=== PATIENT | male | born 1960 | race Caucasian/White ===

== ENCOUNTER 2022-01-30 13:56 | Oncology outpatient (recurring) (ONCR) | payer BC, SELFPAY ==
[2022-01-30 16:35] LABS: Basophils % 0.4 %; Eosinophils # 0.1 10^3/uL (0.0-0.8); Eosinophils % 1.9 %; Hematocrit 43.7 % (42.0-52.0); Hemoglobin 14.8 g/dL (11.7-16.6); Lymphocytes # 1.7 10^3/uL (0.8-4.8); Lymphocytes % 24.6 %; Mean Corpuscular HGB Conc 33.9 g/dL (30.0-36.0); Mean Corpuscular Hemoglobin 30.3 pg (28.0-34.0); Mean Corpuscular Volume 89.4 fl (80-94); Mean Platelet Volume 10.2 fL (7.4-10.4); Monocytes # 0.8 10^3/uL (0.2-0.9); Monocytes % 12.1 %; Neutrophils # 4.21 10^3/uL (1.8-7.7); Neutrophils % 60.7 %; Nucleated Red Blood Cells % 0 %; Platelet Count 424 10^3/cmm (130-400); Red Blood Count 4.89 10^6/uL (4.1-5.3); Red Cell Distribution Width 12.6 % (12.1-15.1); White Blood Count 6.9 10^3/uL (4.0-10.0)
[2022-01-30 17:09] LABS: Carcinoembryonic Antigen 108.5 ng/mL (0.0-4.7)
[2022-01-30 17:20] LABS: Alanine Aminotransferase 14 U/L (0-41); Albumin Level 4.3 g/dL (3.5-5.2); Alkaline Phosphatase 50 IU/L (40-130); Aspartate Amino Transferase 15 U/L (0-40); Blood Urea Nitrogen 11 mg/dL (8-23); Calcium 8.6 mg/dL (8.5-10.5); Carbon Dioxide 26 mmol/L (22-29); Chloride 100 mmol/L (98-107); Globulin 2.5 g/dL (1.3-4.6); Glomerular Filtration Rate 113.9 mL/min (90-130); Glucose 102 mg/dL (65-115); Osmolality Calculated 286 mOsm/kg (285-295); Sodium 138 mmol/L (136-145); Total Bilirubin 0.5 mg/dL (0.15-1.2); Total Protein 6.8 g/dL (6.6-8.7)
== END 2022-02-13 23:59 | disposition home or self-care (01) ==
PROVIDERS: Visit Provider Internal Medicine Medical Oncology
DX: C18.7 Malignant neoplasm of sigmoid colon (principal); C78.6 Secondary malignant neoplasm of retroperitoneum and peritoneum; K62.5 Hemorrhage of anus and rectum; Z79.899 Other long term (current) drug therapy
CPT/HCPCS: 36591; 80053; 82378; 85025; 99204

== ENCOUNTER 2022-03-13 08:00 | Oncology outpatient (recurring) (ONCR) | payer BC, SELFPAY ==
[2022-02-27 09:21] LABS: Basophils # 0.1 10^3/uL (0.0-0.1); Basophils % 0.8 %; Eosinophils # 0.1 10^3/uL (0.0-0.8); Eosinophils % 1.6 %; Hematocrit 43.2 % (42.0-52.0); Hemoglobin 14.9 g/dL (11.7-16.6); Lymphocytes # 1.5 10^3/uL (0.8-4.8); Lymphocytes % 20.4 %; Mean Corpuscular HGB Conc 34.5 g/dL (30.0-36.0); Mean Corpuscular Hemoglobin 29.9 pg (28.0-34.0); Mean Corpuscular Volume 86.7 fl (80-94); Monocytes # 0.8 10^3/uL (0.2-0.9); Monocytes % 11.3 %; Neutrophils # 4.86 10^3/uL (1.8-7.7); Neutrophils % 65.5 %; Nucleated Red Blood Cells % 0 %; Platelet Count 421 10^3/cmm (130-400); Red Blood Count 4.98 10^6/uL (4.1-5.3); Red Cell Distribution Width 12.3 % (12.1-15.1); White Blood Count 7.4 10^3/uL (4.0-10.0)
[2022-02-27 09:41] LABS: Alanine Aminotransferase 10 U/L (0-41); Albumin Level 4.2 g/dL (3.5-5.2); Alkaline Phosphatase 56 IU/L (40-130); Anion Gap 12.3 (5-19); Aspartate Amino Transferase 12 U/L (0-40); Blood Urea Nitrogen 15 mg/dL (8-23); Calcium 9.3 mg/dL (8.5-10.5); Carbon Dioxide 28 mmol/L (22-29); Chloride 102 mmol/L (98-107); Globulin 2.8 g/dL (1.3-4.6); Glomerular Filtration Rate 113.9 mL/min (90-130); Glucose 114 mg/dL (65-115); Osmolality Calculated 288 mOsm/kg (285-295); Potassium 4.3 mmol/L (3.5-5.1); Sodium 138 mmol/L (136-145); Total Bilirubin 0.3 mg/dL (0.15-1.2)
[2022-02-27] MEDS: acetaminophen 325 mg Tablet 650 MG PO ×2 (12:08→12:16)
[2022-02-27] MEDS: palonosetron 0.25 mg/5 mL SDV IVP (12:09)
[2022-02-27] MEDS: sodium chloride 0.9% 250 ML 75 ML IV (12:10)
[2022-02-27] MEDS: diphenhydrAMINE 50 mg/mL SDV 1mL IVP (12:27)
[2022-02-27] MEDS: famotidine 20 mg/2 mL INJ IVP (12:30)
[2022-02-27] MEDS: atropine 1 mg/mL SDV 1 mL 0.4 MG IV (14:25)
[2022-02-27] MEDS: dextrose 5% 250 ML 75 ML IV (14:35)
[2022-02-27 16:30] VITALS: BP 150/93; PULSE 66; RESP 16; TEMP 36.6; O2SAT 96
[2022-03-06 13:00] LABS: Basophils % 0.5 %; Eosinophils # 0.3 10^3/uL (0.0-0.8); Eosinophils % 3.4 %; Hematocrit 43.3 % (42.0-52.0); Hemoglobin 15.1 g/dL (11.7-16.6); Lymphocytes # 1.7 10^3/uL (0.8-4.8); Mean Corpuscular HGB Conc 34.9 g/dL (30.0-36.0); Mean Corpuscular Volume 85.9 fl (80-94); Mean Platelet Volume 9.7 fL (7.4-10.4); Monocytes # 0.9 10^3/uL (0.2-0.9); Monocytes % 10.1 %; Neutrophils # 5.62 10^3/uL (1.8-7.7); Neutrophils % 65.6 %; Nucleated Red Blood Cells % 0 %; Platelet Count 499 10^3/cmm (130-400); Red Blood Count 5.04 10^6/uL (4.1-5.3); Red Cell Distribution Width 12.2 % (12.1-15.1); White Blood Count 8.6 10^3/uL (4.0-10.0)
[2022-03-06 13:16] LABS: Alanine Aminotransferase 17 U/L (0-41); Albumin Level 4.2 g/dL (3.5-5.2); Alkaline Phosphatase 59 IU/L (40-130); Aspartate Amino Transferase 15 U/L (0-40); Blood Urea Nitrogen 12 mg/dL (8-23); Calcium 8.8 mg/dL (8.5-10.5); Carbon Dioxide 28 mmol/L (22-29); Chloride 99 mmol/L (98-107); Globulin 3.1 g/dL (1.3-4.6); Glomerular Filtration Rate 113.9 mL/min (90-130); Glucose 96 mg/dL (65-115); Osmolality Calculated 280 mOsm/kg (285-295); Sodium 135 mmol/L (136-145); Total Bilirubin 0.2 mg/dL (0.15-1.2); Total Protein 7.3 g/dL (6.6-8.7)
[2022-03-13 08:34] LABS: Basophils # 0.1 10^3/uL (0.0-0.1); Basophils % 0.6 %; Eosinophils # 0.2 10^3/uL (0.0-0.8); Eosinophils % 1.8 %; Hematocrit 45.6 % (42.0-52.0); Hemoglobin 15.9 g/dL (11.7-16.6); Lymphocytes # 1.4 10^3/uL (0.8-4.8); Lymphocytes % 12.7 %; Mean Corpuscular HGB Conc 34.9 g/dL (30.0-36.0); Mean Corpuscular Hemoglobin 29.9 pg (28.0-34.0); Mean Corpuscular Volume 85.7 fl (80-94); Mean Platelet Volume 9.7 fL (7.4-10.4); Monocytes # 0.9 10^3/uL (0.2-0.9); Monocytes % 8.1 %; Neutrophils # 8.53 10^3/uL (1.8-7.7); Neutrophils % 76.4 %; Nucleated Red Blood Cells % 0 %; Platelet Count 475 10^3/cmm (130-400); Red Blood Count 5.32 10^6/uL (4.1-5.3); Red Cell Distribution Width 12.8 % (12.1-15.1); White Blood Count 11.2 10^3/uL (4.0-10.0)
[2022-03-13 08:58] LABS: Alanine Aminotransferase 16 U/L (0-41); Albumin Level 4.4 g/dL (3.5-5.2); Alkaline Phosphatase 57 IU/L (40-130); Anion Gap 13.2 (5-19); Aspartate Amino Transferase 12 U/L (0-40); Blood Urea Nitrogen 13 mg/dL (8-23); Calcium 9.5 mg/dL (8.5-10.5); Carbon Dioxide 28 mmol/L (22-29); Chloride 100 mmol/L (98-107); Globulin 2.7 g/dL (1.3-4.6); Glomerular Filtration Rate 136.1 mL/min (90-130); Glucose 109 mg/dL (65-115); Osmolality Calculated 285 mOsm/kg (285-295); Potassium 4.2 mmol/L (3.5-5.1); Sodium 137 mmol/L (136-145); Total Bilirubin 0.4 mg/dL (0.15-1.2); Total Protein 7.1 g/dL (6.6-8.7)
[2022-03-13] MEDS: acetaminophen 325 mg Tablet 650 MG PO (09:46)
[2022-03-13] MEDS: sodium chloride 0.9% 250 ML 75 ML IV (09:46)
[2022-03-13] MEDS: diphenhydrAMINE 50 mg/mL SDV 1mL IVP (09:47)
[2022-03-13] MEDS: atropine 1 mg/mL SDV 1 mL 0.4 MG IV (09:48)
[2022-03-13] MEDS: famotidine 20 mg/2 mL INJ IVP (09:48)
[2022-03-13] MEDS: palonosetron 0.25 mg/5 mL SDV IVP (09:57)
[2022-03-13] MEDS: dextrose 5% 250 ML 75 ML IV (10:21)
== END 2022-03-15 23:59 | disposition home or self-care (01) ==
PROVIDERS: Nurse Practitioner Family; Visit Provider Internal Medicine Medical Oncology
DX: Z51.11 Encounter for antineoplastic chemotherapy (principal); C18.7 Malignant neoplasm of sigmoid colon; C78.6 Secondary malignant neoplasm of retroperitoneum and peritoneum; L27.1 Localized skin eruption due to drugs and medicaments taken internally; T45.1X5A Adverse effect of antineoplastic and immunosuppressive drugs, initial encounter; Z79.52 Long term (current) use of systemic steroids; Z79.899 Other long term (current) drug therapy; Z87.891 Personal history of nicotine dependence
CPT/HCPCS: 36591; 80053; 85025; 96367; 96375; 96413; 96415; 96417; J0461; J1100; J1200; J2469; J3490; J7050; J9206; J9303

== ENCOUNTER 2022-04-04 11:00 | Oncology outpatient (recurring) (ONCR) | payer BC, SELFPAY ==
[2022-03-27 08:42] LABS: Basophils % 0.4 %; Eosinophils # 0.3 10^3/uL (0.0-0.8); Eosinophils % 3.6 %; Hematocrit 43.7 % (42.0-52.0); Hemoglobin 14.9 g/dL (11.7-16.6); Lymphocytes # 1.7 10^3/uL (0.8-4.8); Lymphocytes % 21.7 %; Mean Corpuscular HGB Conc 34.1 g/dL (30.0-36.0); Mean Corpuscular Volume 88.1 fl (80-94); Mean Platelet Volume 9.6 fL (7.4-10.4); Monocytes # 0.8 10^3/uL (0.2-0.9); Monocytes % 10.5 %; Neutrophils # 4.91 10^3/uL (1.8-7.7); Neutrophils % 63.5 %; Nucleated Red Blood Cells % 0 %; Platelet Count 375 10^3/cmm (130-400); Red Blood Count 4.96 10^6/uL (4.1-5.3); Red Cell Distribution Width 13.5 % (12.1-15.1); White Blood Count 7.7 10^3/uL (4.0-10.0)
[2022-03-27 08:57] LABS: Alanine Aminotransferase 18 U/L (0-41); Alkaline Phosphatase 46 IU/L (40-130); Anion Gap 11.7 (5-19); Aspartate Amino Transferase 15 U/L (0-40); Blood Urea Nitrogen 15 mg/dL (8-23); Calcium 9.3 mg/dL (8.5-10.5); Carbon Dioxide 29 mmol/L (22-29); Chloride 101 mmol/L (98-107); Globulin 2.6 g/dL (1.3-4.6); Glomerular Filtration Rate 97.6 mL/min (90-130); Glucose 106 mg/dL (65-115); Osmolality Calculated 285 mOsm/kg (285-295); Potassium 4.7 mmol/L (3.5-5.1); Sodium 137 mmol/L (136-145); Total Bilirubin 0.5 mg/dL (0.15-1.2); Total Protein 6.6 g/dL (6.6-8.7)
[2022-03-28 08:40] LABS: Add On to Lab Order(s) Added
[2022-03-28 09:14] LABS: Carcinoembryonic Antigen 65.5 ng/mL (0.0-4.7)
[2022-04-03 08:43] LABS: Basophils % 0.7 %; Eosinophils # 0.2 10^3/uL (0.0-0.8); Eosinophils % 3.1 %; Hematocrit 44.7 % (42.0-52.0); Hemoglobin 15.1 g/dL (11.7-16.6); Lymphocytes # 1.4 10^3/uL (0.8-4.8); Lymphocytes % 23.2 %; Mean Corpuscular HGB Conc 33.8 g/dL (30.0-36.0); Mean Corpuscular Hemoglobin 30.3 pg (28.0-34.0); Mean Corpuscular Volume 89.8 fl (80-94); Monocytes # 0.7 10^3/uL (0.2-0.9); Monocytes % 11.9 %; Neutrophils # 3.53 10^3/uL (1.8-7.7); Neutrophils % 60.8 %; Nucleated Red Blood Cells % 0 %; Platelet Count 409 10^3/cmm (130-400); Red Blood Count 4.98 10^6/uL (4.1-5.3); Red Cell Distribution Width 13.6 % (12.1-15.1); White Blood Count 5.8 10^3/uL (4.0-10.0)
[2022-04-03 09:12] LABS: Alanine Aminotransferase 15 U/L (0-41); Albumin Level 3.9 g/dL (3.5-5.2); Alkaline Phosphatase 50 IU/L (40-130); Anion Gap 12.1 (5-19); Aspartate Amino Transferase 15 U/L (0-40); Blood Urea Nitrogen 12 mg/dL (8-23); Calcium 8.8 mg/dL (8.5-10.5); Carbon Dioxide 29 mmol/L (22-29); Chloride 100 mmol/L (98-107); Globulin 2.5 g/dL (1.3-4.6); Glomerular Filtration Rate 113.9 mL/min (90-130); Glucose 132 mg/dL (65-115); Osmolality Calculated 286 mOsm/kg (285-295); Potassium 4.1 mmol/L (3.5-5.1); Sodium 137 mmol/L (136-145); Total Bilirubin 0.5 mg/dL (0.15-1.2); Total Protein 6.4 g/dL (6.6-8.7)
[2022-04-04] MEDS: acetaminophen 325 mg Tablet 650 MG PO (08:51)
[2022-04-04] MEDS: sodium chloride 0.9% 250 ML 100 ML IV (08:52)
[2022-04-04] MEDS: diphenhydrAMINE 50 mg/mL SDV 1mL IVP (08:55)
[2022-04-04] MEDS: famotidine 20 mg/2 mL INJ IVP (08:56)
[2022-04-04] MEDS: palonosetron 0.25 mg/5 mL SDV IVP (08:59)
[2022-04-04] MEDS: atropine 1 mg/mL SDV 1 mL 0.4 MG IV (10:42)
[2022-04-04] MEDS: IRINOTECAN IV (11:01)
[2022-04-04] MEDS: DEXTROSE 5% IV (11:01)
[2022-04-04 12:46] VITALS: BP 125/77; PULSE 86; TEMP 36.9; O2SAT 96
== END 2022-04-15 23:59 | disposition home or self-care (01) ==
PROVIDERS: Nurse Practitioner Family; Visit Provider Internal Medicine Medical Oncology
DX: Z51.11 Encounter for antineoplastic chemotherapy (principal); C18.7 Malignant neoplasm of sigmoid colon; C78.6 Secondary malignant neoplasm of retroperitoneum and peritoneum; C79.52 Secondary malignant neoplasm of bone marrow; Z79.899 Other long term (current) drug therapy; Z87.891 Personal history of nicotine dependence
CPT/HCPCS: 36591; 80053; 82378; 85025; 96367; 96375; 96413; 96415; 96417; J0461; J1100; J1200; J2469; J3490; J7050; J9206; J9303

== ENCOUNTER 2022-05-16 08:30 | Oncology outpatient (recurring) (ONCR) | payer BC, SELFPAY ==
[2022-04-18 08:19] LABS: Basophils # 0.1 10^3/uL (0.0-0.1); Eosinophils # 0.4 10^3/uL (0.0-0.8); Eosinophils % 5.9 %; Hematocrit 43.1 % (42.0-52.0); Hemoglobin 14.8 g/dL (11.7-16.6); Lymphocytes # 1.7 10^3/uL (0.8-4.8); Lymphocytes % 25.6 %; Mean Corpuscular HGB Conc 34.3 g/dL (30.0-36.0); Mean Corpuscular Hemoglobin 30.2 pg (28.0-34.0); Mean Platelet Volume 9.6 fL (7.4-10.4); Monocytes # 0.8 10^3/uL (0.2-0.9); Monocytes % 11.2 %; Neutrophils % 56.2 %; Nucleated Red Blood Cells % 0 %; Platelet Count 391 10^3/cmm (130-400); Red Cell Distribution Width 14.4 % (12.1-15.1); White Blood Count 6.8 10^3/uL (4.0-10.0)
[2022-04-18 08:36] LABS: Alanine Aminotransferase 15 U/L (0-41); Alkaline Phosphatase 60 IU/L (40-130); Anion Gap 13.3 (5-19); Aspartate Amino Transferase 17 U/L (0-40); Blood Urea Nitrogen 11 mg/dL (8-23); Carbon Dioxide 29 mmol/L (22-29); Chloride 102 mmol/L (98-107); Globulin 2.5 g/dL (1.3-4.6); Glomerular Filtration Rate 113.9 mL/min (90-130); Glucose 134 mg/dL (65-115); Osmolality Calculated 291 mOsm/kg (285-295); Potassium 4.3 mmol/L (3.5-5.1); Sodium 140 mmol/L (136-145); Total Bilirubin 0.3 mg/dL (0.15-1.2); Total Protein 6.5 g/dL (6.6-8.7)
[2022-04-18] MEDS: palonosetron 0.25 mg/5 mL SDV IVP (10:40)
[2022-04-18] MEDS: sodium chloride 0.9% 250 ML 75 ML IV (10:40)
[2022-04-18] MEDS: famotidine 20 mg/2 mL INJ IVP (10:41)
[2022-04-18] MEDS: atropine 1 mg/mL SDV 1 mL 0.4 MG IV (10:42)
[2022-04-18] MEDS: acetaminophen 325 mg Tablet 650 MG PO (10:45)
[2022-04-18] MEDS: diphenhydrAMINE 50 mg/mL SDV 1mL IVP ×2 (10:45→10:57)
[2022-04-18 13:48] VITALS: BP 131/79; PULSE 64; RESP 16; TEMP 36.4; O2SAT 95
[2022-05-02] MEDS: alteplase 1 mg/mL SDV 2 mL 2 MG INTRACATH (08:55)
[2022-05-02 09:17] LABS: Basophils # 0.1 10^3/uL (0.0-0.1); Basophils % 0.8 %; Eosinophils # 0.4 10^3/uL (0.0-0.8); Eosinophils % 6.3 %; Hematocrit 44.9 % (42.0-52.0); Hemoglobin 15.3 g/dL (11.7-16.6); Lymphocytes # 1.5 10^3/uL (0.8-4.8); Lymphocytes % 24.9 %; Mean Corpuscular HGB Conc 34.1 g/dL (30.0-36.0); Mean Corpuscular Hemoglobin 30.4 pg (28.0-34.0); Mean Corpuscular Volume 89.1 fl (80-94); Mean Platelet Volume 9.7 fL (7.4-10.4); Monocytes # 0.6 10^3/uL (0.2-0.9); Monocytes % 10.3 %; Neutrophils # 3.46 10^3/uL (1.8-7.7); Neutrophils % 57.5 %; Nucleated Red Blood Cells % 0 %; Platelet Count 381 10^3/cmm (130-400); Red Blood Count 5.04 10^6/uL (4.1-5.3)
[2022-05-02 09:49] LABS: Carcinoembryonic Antigen 25.6 ng/mL (0.0-4.7)
[2022-05-02 09:59] LABS: Alanine Aminotransferase 24 U/L (0-41); Alkaline Phosphatase 55 U/L (40-130); Aspartate Amino Transferase 22 U/L (0-40); Blood Urea Nitrogen 10 mg/dL (8-23); Calcium 9.1 mg/dL (8.5-10.5); Carbon Dioxide 25 mmol/L (22-29); Chloride 103 mmol/L (98-107); Globulin 2.9 g/dL (1.3-4.6); Glomerular Filtration Rate 136.1 mL/min (90-130); Glucose 111 mg/dL (65-115); Osmolality Calculated 288 mOsm/kg (285-295); Sodium 139 mmol/L (136-145); Total Bilirubin 0.4 mg/dL (0.15-1.2); Total Protein 6.9 g/dL (6.6-8.7)
[2022-05-02 10:13] LABS: Anion Gap 15.7 (5-19); Potassium 4.7 mmol/L (3.5-5.1)
[2022-05-02] MEDS: acetaminophen 325 mg Tablet 650 MG PO (10:51)
[2022-05-02] MEDS: sodium chloride 0.9% 250 ML 100 ML IV (10:52)
[2022-05-02] MEDS: palonosetron 0.25 mg/5 mL SDV IVP (10:53)
[2022-05-02] MEDS: famotidine 20 mg/2 mL INJ IVP (10:54)
[2022-05-02] MEDS: diphenhydrAMINE 50 mg/mL SDV 1mL IVP (10:57)
[2022-05-02] MEDS: atropine 1 mg/mL SDV 1 mL 0.4 MG IV (12:37)
[2022-05-16 08:49] LABS: Basophils # 0.1 10^3/uL (0.0-0.1); Basophils % 0.9 %; Eosinophils # 0.4 10^3/uL (0.0-0.8); Eosinophils % 6.6 %; Hematocrit 44.8 % (42.0-52.0); Hemoglobin 15.3 g/dL (11.7-16.6); Lymphocytes # 1.7 10^3/uL (0.8-4.8); Lymphocytes % 29.2 %; Mean Corpuscular HGB Conc 34.2 g/dL (30.0-36.0); Mean Corpuscular Hemoglobin 30.9 pg (28.0-34.0); Mean Corpuscular Volume 90.5 fl (80-94); Mean Platelet Volume 9.6 fL (7.4-10.4); Monocytes # 0.6 10^3/uL (0.2-0.9); Monocytes % 10.1 %; Neutrophils # 3.05 10^3/uL (1.8-7.7); Nucleated Red Blood Cells % 0 %; Platelet Count 376 10^3/cmm (130-400); Red Blood Count 4.95 10^6/uL (4.1-5.3); Red Cell Distribution Width 15.1 % (12.1-15.1); White Blood Count 5.8 10^3/uL (4.0-10.0)
[2022-05-16 09:39] LABS: Alanine Aminotransferase 23 U/L (0-41); Alkaline Phosphatase 59 U/L (40-130); Anion Gap 13.2 (5-19); Aspartate Amino Transferase 17 U/L (0-40); Blood Urea Nitrogen 9 mg/dL (8-23); Calcium 9.1 mg/dL (8.5-10.5); Carbon Dioxide 28 mmol/L (22-29); Chloride 101 mmol/L (98-107); Globulin 2.5 g/dL (1.3-4.6); Glomerular Filtration Rate 136.1 mL/min (90-130); Glucose 124 mg/dL (65-115); Osmolality Calculated 286 mOsm/kg (285-295); Potassium 4.2 mmol/L (3.5-5.1); Sodium 138 mmol/L (136-145); Total Bilirubin 0.3 mg/dL (0.15-1.2); Total Protein 6.5 g/dL (6.6-8.7)
[2022-05-16] MEDS: palonosetron 0.25 mg/5 mL SDV IVP (11:06)
[2022-05-16] MEDS: famotidine 20 mg/2 mL INJ IVP (11:07)
[2022-05-16] MEDS: diphenhydrAMINE 50 mg/mL SDV 1mL IVP (11:09)
[2022-05-16] MEDS: atropine 1 mg/mL SDV 1 mL 0.4 MG IV (11:11)
[2022-05-16] MEDS: acetaminophen 325 mg Tablet 650 MG PO (11:14)
[2022-05-16] MEDS: sodium chloride 0.9% 250 ML 75 ML IV (11:41)
[2022-05-16] MEDS: dextrose 5% 250 ML 75 ML IV (12:51)
[2022-05-16 14:18] VITALS: BP 122/68; PULSE 71; RESP 16; TEMP 36.4; O2SAT 97
== END 2022-05-16 23:59 | disposition home or self-care (01) ==
PROVIDERS: Nurse Practitioner; Visit Provider Internal Medicine Medical Oncology
DX: Z51.11 Encounter for antineoplastic chemotherapy (principal); C18.7 Malignant neoplasm of sigmoid colon; Z79.52 Long term (current) use of systemic steroids; C78.6 Secondary malignant neoplasm of retroperitoneum and peritoneum; L27.1 Localized skin eruption due to drugs and medicaments taken internally; Z79.899 Other long term (current) drug therapy; Z87.891 Personal history of nicotine dependence; T45.1X5A Adverse effect of antineoplastic and immunosuppressive drugs, initial encounter
CPT/HCPCS: 36415; 36593; 80053; 82378; 85025; 96367; 96375; 96413; 96417; J0461; J1100; J1200; J2469; J2997; J3490; J7050; J9206; J9303

== ENCOUNTER 2022-06-13 08:30 | Oncology outpatient (recurring) (ONCR) | payer BC, SELFPAY ==
[2022-05-30 09:34] LABS: Basophils % 0.6 %; Eosinophils # 0.3 10^3/uL (0.0-0.8); Eosinophils % 4.3 %; Hematocrit 44.2 % (42.0-52.0); Lymphocytes # 1.3 10^3/uL (0.8-4.8); Lymphocytes % 19.6 %; Mean Corpuscular HGB Conc 33.9 g/dL (30.0-36.0); Mean Corpuscular Volume 91.3 fl (80-94); Mean Platelet Volume 9.9 fL (7.4-10.4); Monocytes # 0.9 10^3/uL (0.2-0.9); Monocytes % 13.4 %; Neutrophils # 4.06 10^3/uL (1.8-7.7); Neutrophils % 61.8 %; Nucleated Red Blood Cells % 0 %; Platelet Count 387 10^3/cmm (130-400); Red Blood Count 4.84 10^6/uL (4.1-5.3); Red Cell Distribution Width 14.7 % (12.1-15.1); White Blood Count 6.6 10^3/uL (4.0-10.0)
[2022-05-30 09:54] LABS: Carcinoembryonic Antigen 14.2 ng/mL (0.0-4.7)
[2022-05-30 10:31] LABS: Alanine Aminotransferase 24 U/L (0-41); Albumin Level 3.9 g/dL (3.5-5.2); Alkaline Phosphatase 65 U/L (40-130); Anion Gap 15.2 (5-19); Aspartate Amino Transferase 22 U/L (0-40); Blood Urea Nitrogen 8 mg/dL (8-23); Calcium 9.1 mg/dL (8.5-10.5); Carbon Dioxide 26 mmol/L (22-29); Chloride 103 mmol/L (98-107); Globulin 2.5 g/dL (1.3-4.6); Glomerular Filtration Rate 135.6 mL/min (90-130); Glucose 100 mg/dL (65-115); Osmolality Calculated 288 mOsm/kg (285-295); Potassium 4.2 mmol/L (3.5-5.1); Sodium 140 mmol/L (136-145); Total Bilirubin 0.4 mg/dL (0.15-1.2); Total Protein 6.4 g/dL (6.6-8.7)
[2022-05-30] MEDS: acetaminophen 325 mg Tablet 650 MG PO (11:34)
[2022-05-30] MEDS: sodium chloride 0.9% 250 ML 75 ML IV (11:34)
[2022-05-30] MEDS: palonosetron 0.25 mg/5 mL SDV IVP (11:35)
[2022-05-30] MEDS: famotidine 20 mg/2 mL INJ IVP (11:38)
[2022-05-30] MEDS: diphenhydrAMINE 50 mg/mL SDV 1mL IVP (11:40)
[2022-05-30] MEDS: atropine 1 mg/mL SDV 1 mL 0.4 MG IV (11:42)
[2022-05-30] MEDS: dextrose 5% 250 ML 75 ML IV (13:13)
[2022-05-30 14:50] VITALS: BP 138/77; PULSE 68; RESP 16; TEMP 35.7; O2SAT 95
[2022-06-13] MEDS: alteplase 1 mg/mL SDV 2 mL 2 MG INTRACATH (09:01)
[2022-06-13 09:30] LABS: Basophils % 0.7 %; Eosinophils # 0.3 10^3/uL (0.0-0.8); Eosinophils % 5.5 %; Hematocrit 43.3 % (42.0-52.0); Lymphocytes # 1.4 10^3/uL (0.8-4.8); Lymphocytes % 25.5 %; Mean Corpuscular HGB Conc 34.6 g/dL (30.0-36.0); Mean Corpuscular Hemoglobin 32.1 pg (28.0-34.0); Mean Corpuscular Volume 92.5 fl (80-94); Mean Platelet Volume 9.6 fL (7.4-10.4); Monocytes # 0.6 10^3/uL (0.2-0.9); Monocytes % 11.3 %; Neutrophils % 56.6 %; Nucleated Red Blood Cells % 0 %; Platelet Count 373 10^3/cmm (130-400); Red Blood Count 4.68 10^6/uL (4.1-5.3); Red Cell Distribution Width 14.9 % (12.1-15.1); White Blood Count 5.7 10^3/uL (4.0-10.0)
[2022-06-13 10:08] LABS: Alanine Aminotransferase 22 U/L (0-41); Albumin Level 3.8 g/dL (3.5-5.2); Alkaline Phosphatase 64 U/L (40-130); Blood Urea Nitrogen 10 mg/dL (8-23); Calcium 9.1 mg/dL (8.5-10.5); Carbon Dioxide 24 mmol/L (22-29); Chloride 103 mmol/L (98-107); Globulin 2.7 g/dL (1.3-4.6); Glomerular Filtration Rate 167.4 mL/min (90-130); Glucose 110 mg/dL (65-115); Osmolality Calculated 282 mOsm/kg (285-295); Sodium 136 mmol/L (136-145); Total Bilirubin 0.4 mg/dL (0.15-1.2); Total Protein 6.5 g/dL (6.6-8.7)
[2022-06-13 10:11] LABS: Anion Gap 13.2 (5-19); Aspartate Amino Transferase 26 U/L (0-40); Potassium 4.2 mmol/L (3.5-5.1)
[2022-06-13] MEDS: acetaminophen 325 mg Tablet 650 MG PO (11:03)
[2022-06-13] MEDS: sodium chloride 0.9% 250 ML 75 ML IV (11:04)
[2022-06-13] MEDS: palonosetron 0.25 mg/5 mL SDV IVP (11:05)
[2022-06-13] MEDS: famotidine 20 mg/2 mL INJ IVP (11:06)
[2022-06-13] MEDS: diphenhydrAMINE 50 mg/mL SDV 1mL IVP (11:08)
[2022-06-13] MEDS: atropine 1 mg/mL SDV 1 mL 0.4 MG IV (11:11)
[2022-06-13] MEDS: dextrose 5% 250 ML 75 ML IV (12:45)
[2022-06-13 14:50] VITALS: BP 125/78; PULSE 67; RESP 16; TEMP 35.9; O2SAT 95
== END 2022-06-15 23:59 | disposition home or self-care (01) ==
PROVIDERS: Nurse Practitioner; Visit Provider Internal Medicine Medical Oncology
DX: Z51.11 Encounter for antineoplastic chemotherapy (principal); C18.7 Malignant neoplasm of sigmoid colon; Z79.52 Long term (current) use of systemic steroids; C78.6 Secondary malignant neoplasm of retroperitoneum and peritoneum; L27.1 Localized skin eruption due to drugs and medicaments taken internally; Z79.899 Other long term (current) drug therapy; Z87.891 Personal history of nicotine dependence; T45.1X5A Adverse effect of antineoplastic and immunosuppressive drugs, initial encounter
CPT/HCPCS: 36415; 36593; 80053; 82378; 85025; 96366; 96367; 96375; 96413; 96415; 96417; J0461; J1100; J1200; J2469; J2997; J3490; J7050; J9206; J9303

== ENCOUNTER 2022-07-09 14:51 | Outpatient (CLI) | payer BC, SELFPAY ==
[2022-07-09] MEDS: iohexol 350 mg/mL 100 mL Btl PO (15:45)
[2022-07-09] MEDS: iohexol 350 mg/mL 100 mL Btl IV (16:05)
--- NOTE | 2022-07-09 16:30 | CT_ITS ---
WS: [id number] CT CHEST, ABDOMEN AND PELVIS WITH CONTRAST HISTORY: Restaging colon cancer. TECHNIQUE: Contiguous 5 mm axial imaging performed through the chest, abdomen and pelvis with IV cont rast, oral contrast has been provided. Coronal and sagittal reformats chest. Coronal and sagittal ref ormats through the abdomen and pelvis. All CT scans at [facility] use at least one of these d ose optimization techniques: automated exposure control; mA and/or kV adjustment per patient size (in cludes targeted exams where dose is matched to clinical indication); or iterative reconstruction. CONTRAST: Omnipaque 350; 95 mL IV. DLP: 1867.53 mGy.cm COMPARISON: 11/21/2021, 04/28/[address]: No metastatic nodules or masses or pneumonia within the lungs. No pericardial or pleural ef fusion. Heart size is normal. Minimal atherosclerosis aorta. Normal size pulmonary artery. RIGHT torres r lymph node measures 11 mm. Unchanged 12 mm lymph node in the RIGHT pericardiac fat. No enlarging or new lymph nodes. No axillary lymph nodes. Negative chest wall. Abdomen CT: Liver, spleen, gallbladder, pancreas and adrenal glands negative. Very minimal atheroscle rosis aorta. Kidneys are enhancing normally. Again noted is the omental stranding and nodularity along the anterior abdominal wall at the level o f the umbilicus. New omental thickening over the RIGHT lower abdomen. There is also a new small amoun t of ascites along the paracolic gutters. There is a small focal collection of fluid in the pelvis. T here are a few small retroperitoneal and pelvic lymph nodes but these are not enlarged. Pelvic CT: Rectosigmoid anastomotic sutures are reidentified. No obstruction at the anastomotic site. There is very mild persistent but improved pericolonic stranding at the surgical site. Focal soft ti ssue thickening on image 70 of series 6. At this time nonspecific. This will need close follow-up. Ma y be residual scarring but a new metastatic site is not excluded. No adjacent lymph nodes. Urinary bl adder is mildly distended. Low-attenuation nodule measuring 1.9 x 2.5 cm in the mid pelvis may be ent rapped fluid. New soft tissue tracts are noted within the LEFT abdomen probably due to recent surgical procedure do ne laparoscopically. Sclerotic lesion in the LEFT ilium is unchanged. May be a small infarct or bone island. CT/CT chest abd pel w con* IMPRESSION: 1. No metastatic nodules within the lungs or increasing lymph node size. 2. Mild progression of omental nodularity, suspicious for carcinomatosis. 3. New small amount of fluid along the paracolic gutters. 4. No definite mesenteric or retroperitoneal lymph nodes. 5. Rectosigmoid anastomotic site is improving since 11/21/2021. Less pericolonic stranding and there is no obstruction. Recommend continued close follow-up. 6. There is mild focal increased soft tissue on image 70 of series 6 which may be residual tumor or fibrosis and scarring from treatment. Recommend continue close continued serial follow-up.
== END 2022-07-09 14:52 | disposition home or self-care (01) ==
PROVIDERS: PCP Family Medicine; Visit Provider Internal Medicine Medical Oncology
DX: C18.7 Malignant neoplasm of sigmoid colon (principal); Z90.49 Acquired absence of other specified parts of digestive tract
CPT/HCPCS: 71260; 74177

== ENCOUNTER 2022-07-11 08:00 | Oncology outpatient (recurring) (ONCR) | payer BC, SELFPAY ==
[2022-06-27] MEDS: alteplase 1 mg/mL SDV 2 mL 2 MG INTRACATH (08:27)
[2022-06-27 08:54] LABS: Basophils # 0.1 10^3/uL (0.0-0.1); Eosinophils # 0.2 10^3/uL (0.0-0.8); Eosinophils % 4.4 %; Hematocrit 42.3 % (42.0-52.0); Hemoglobin 14.9 g/dL (11.7-16.6); Lymphocytes # 1.4 10^3/uL (0.8-4.8); Lymphocytes % 27.6 %; Mean Corpuscular HGB Conc 35.2 g/dL (30.0-36.0); Mean Corpuscular Hemoglobin 32.3 pg (28.0-34.0); Mean Corpuscular Volume 91.8 fl (80-94); Mean Platelet Volume 9.7 fL (7.4-10.4); Monocytes # 0.6 10^3/uL (0.2-0.9); Monocytes % 12.3 %; Neutrophils # 2.83 10^3/uL (1.8-7.7); Neutrophils % 54.5 %; Nucleated Red Blood Cells % 0 %; Platelet Count 358 10^3/cmm (130-400); Red Blood Count 4.61 10^6/uL (4.1-5.3); Red Cell Distribution Width 14.5 % (12.1-15.1); White Blood Count 5.2 10^3/uL (4.0-10.0)
[2022-06-27 09:24] LABS: Carcinoembryonic Antigen 10.2 ng/mL (0.0-4.7)
[2022-06-27 09:35] LABS: Alanine Aminotransferase 24 U/L (0-41); Albumin Level 3.8 g/dL (3.5-5.2); Alkaline Phosphatase 62 U/L (40-130); Aspartate Amino Transferase 19 U/L (0-40); Blood Urea Nitrogen 6 mg/dL (8-23); Calcium 8.9 mg/dL (8.5-10.5); Carbon Dioxide 23 mmol/L (22-29); Chloride 102 mmol/L (98-107); Globulin 2.6 g/dL (1.3-4.6); Glomerular Filtration Rate 167.4 mL/min (90-130); Glucose 111 mg/dL (65-115); Osmolality Calculated 284 mOsm/kg (285-295); Sodium 138 mmol/L (136-145); Total Bilirubin 0.5 mg/dL (0.15-1.2); Total Protein 6.4 g/dL (6.6-8.7)
[2022-06-27 09:39] LABS: Anion Gap 17.1 (5-19); Potassium 4.1 mmol/L (3.5-5.1)
[2022-06-27] MEDS: sodium chloride 0.9% 250 ML 75 ML IV ×2 (09:56→11:00)
[2022-06-27] MEDS: acetaminophen 325 mg Tablet 650 MG PO (09:57)
[2022-06-27] MEDS: palonosetron 0.25 mg/5 mL SDV IVP (09:58)
[2022-06-27] MEDS: famotidine 20 mg/2 mL INJ IVP (09:59)
[2022-06-27] MEDS: diphenhydrAMINE 50 mg/mL SDV 1mL IVP (10:01)
[2022-06-27] MEDS: atropine 1 mg/mL SDV 1 mL 0.4 MG IV (10:04)
[2022-06-27 13:23] VITALS: BP 124/74; PULSE 78; RESP 16; TEMP 35.9; O2SAT 78
[2022-07-11 08:02] VITALS: BP 137/83; PULSE 78; RESP 16; TEMP 36.4; O2SAT 97
[2022-07-11 08:27] LABS: Basophils % 0.8 %; Eosinophils # 0.2 10^3/uL (0.0-0.8); Eosinophils % 3.8 %; Hematocrit 42.5 % (42.0-52.0); Hemoglobin 14.8 g/dL (11.7-16.6); Lymphocytes # 1.2 10^3/uL (0.8-4.8); Lymphocytes % 23.1 %; Mean Corpuscular HGB Conc 34.8 g/dL (30.0-36.0); Mean Corpuscular Hemoglobin 32.6 pg (28.0-34.0); Mean Corpuscular Volume 93.6 fl (80-94); Mean Platelet Volume 9.7 fL (7.4-10.4); Monocytes # 0.6 10^3/uL (0.2-0.9); Neutrophils # 3.23 10^3/uL (1.8-7.7); Neutrophils % 61.1 %; Nucleated Red Blood Cells % 0 %; Platelet Count 371 10^3/cmm (130-400); Red Blood Count 4.54 10^6/uL (4.1-5.3); White Blood Count 5.3 10^3/uL (4.0-10.0)
[2022-07-11] MEDS: alteplase 1 mg/mL SDV 2 mL 2 MG INTRACATH (08:29)
[2022-07-11 09:19] LABS: Alanine Aminotransferase 25 U/L (0-41); Alkaline Phosphatase 64 U/L (40-130); Anion Gap 13.3 (5-19); Aspartate Amino Transferase 18 U/L (0-40); Blood Urea Nitrogen 10 mg/dL (8-23); Calcium 9.3 mg/dL (8.5-10.5); Carbon Dioxide 24 mmol/L (22-29); Chloride 103 mmol/L (98-107); Creatinine Clr Calc Pharmacy 152.5095; Globulin 2.3 g/dL (1.3-4.6); Glomerular Filtration Rate 135.6 mL/min (90-130); Glucose 107 mg/dL (65-115); Osmolality Calculated 282 mOsm/kg (285-295); Potassium 4.3 mmol/L (3.5-5.1); Sodium 136 mmol/L (136-145); Total Bilirubin 0.4 mg/dL (0.15-1.2); Total Protein 6.3 g/dL (6.6-8.7)
[2022-07-11] MEDS: sodium chloride 0.9% 250 ML 75 ML IV (09:39)
[2022-07-11] MEDS: palonosetron 0.25 mg/5 mL SDV IVP (09:40)
[2022-07-11] MEDS: famotidine 20 mg/2 mL INJ IVP (09:42)
[2022-07-11] MEDS: diphenhydrAMINE 50 mg/mL SDV 1mL IVP (09:42)
[2022-07-11] MEDS: atropine 1 mg/mL SDV 1 mL 0.4 MG IV (09:46)
[2022-07-11] MEDS: acetaminophen 325 mg Tablet 650 MG PO (09:49)
[2022-07-11 12:57] VITALS: BP 110/63; PULSE 63; RESP 16; TEMP 36.1; O2SAT 95
== END 2022-07-16 23:59 | disposition home or self-care (01) ==
PROVIDERS: Nurse Practitioner; Visit Provider Internal Medicine Medical Oncology
DX: Z51.11 Encounter for antineoplastic chemotherapy (principal); C18.7 Malignant neoplasm of sigmoid colon; Z79.52 Long term (current) use of systemic steroids; C78.6 Secondary malignant neoplasm of retroperitoneum and peritoneum; Z79.899 Other long term (current) drug therapy; Z87.891 Personal history of nicotine dependence; C79.89 Secondary malignant neoplasm of other specified sites
CPT/HCPCS: 36415; 80053; 82378; 85025; 96367; 96375; 96413; 96415; 96417; J0461; J1100; J1200; J2469; J2997; J3490; J7050; J7060; J9206; J9303

== ENCOUNTER 2022-08-08 08:30 | Oncology outpatient (recurring) (ONCR) | payer BC, SELFPAY ==
[2022-07-25] MEDS: alteplase 1 mg/mL SDV 2 mL 2 MG INTRACATH (08:14)
[2022-07-25 08:18] LABS: Basophils # 0.1 10^3/uL (0.0-0.1); Eosinophils # 0.3 10^3/uL (0.0-0.8); Eosinophils % 5.2 %; Hematocrit 45.1 % (42.0-52.0); Hemoglobin 15.4 g/dL (11.7-16.6); Lymphocytes # 1.2 10^3/uL (0.8-4.8); Lymphocytes % 22.8 %; Mean Corpuscular HGB Conc 34.1 g/dL (30.0-36.0); Mean Corpuscular Hemoglobin 32.2 pg (28.0-34.0); Mean Corpuscular Volume 94.2 fl (80-94); Mean Platelet Volume 9.6 fL (7.4-10.4); Monocytes # 0.5 10^3/uL (0.2-0.9); Monocytes % 10.3 %; Neutrophils # 3.17 10^3/uL (1.8-7.7); Neutrophils % 60.5 %; Nucleated Red Blood Cells % 0 %; Platelet Count 378 10^3/cmm (130-400); Red Blood Count 4.79 10^6/uL (4.1-5.3); Red Cell Distribution Width 13.9 % (12.1-15.1); White Blood Count 5.2 10^3/uL (4.0-10.0)
[2022-07-25 08:53] LABS: Carcinoembryonic Antigen 9.1 ng/mL (0.0-4.7)
[2022-07-25 09:04] LABS: Alanine Aminotransferase 29 U/L (0-41); Alkaline Phosphatase 70 U/L (40-130); Anion Gap 17.9 (5-19); Aspartate Amino Transferase 18 U/L (0-40); Blood Urea Nitrogen 7 mg/dL (8-23); Calcium 9.1 mg/dL (8.5-10.5); Carbon Dioxide 22 mmol/L (22-29); Chloride 106 mmol/L (98-107); Globulin 2.4 g/dL (1.3-4.6); Glomerular Filtration Rate 135.6 mL/min (90-130); Glucose 144 mg/dL (65-115); Osmolality Calculated 295 mOsm/kg (285-295); Potassium 3.9 mmol/L (3.5-5.1); Sodium 142 mmol/L (136-145); Total Bilirubin 0.4 mg/dL (0.15-1.2); Total Protein 6.4 g/dL (6.6-8.7)
[2022-07-25] MEDS: dextrose 5% 250 ML 75 ML IV (10:10)
[2022-07-25] MEDS: acetaminophen 325 mg Tablet 650 MG PO (10:13)
[2022-07-25] MEDS: palonosetron 0.25 mg/5 mL SDV IVP (10:13)
[2022-07-25] MEDS: famotidine 20 mg/2 mL INJ IVP (10:15)
[2022-07-25] MEDS: diphenhydrAMINE 50 mg/mL SDV 1mL IVP (10:17)
[2022-07-25] MEDS: atropine 1 mg/mL SDV 1 mL 0.4 MG IV (10:20)
[2022-07-25 12:20] VITALS: BP 122/70; PULSE 61; RESP 16; TEMP 36.2; O2SAT 99
[2022-08-08] MEDS: alteplase 1 mg/mL SDV 2 mL 2 MG INTRACATH (08:30)
[2022-08-08 08:33] LABS: Basophils # 0.1 10^3/uL (0.0-0.1); Basophils % 0.9 %; Eosinophils # 0.2 10^3/uL (0.0-0.8); Eosinophils % 3.7 %; Hematocrit 43.2 % (42.0-52.0); Hemoglobin 14.9 g/dL (11.7-16.6); Lymphocytes # 1.2 10^3/uL (0.8-4.8); Lymphocytes % 21.2 %; Mean Corpuscular HGB Conc 34.5 g/dL (30.0-36.0); Mean Corpuscular Hemoglobin 32.2 pg (28.0-34.0); Mean Corpuscular Volume 93.3 fl (80-94); Mean Platelet Volume 9.6 fL (7.4-10.4); Monocytes # 0.7 10^3/uL (0.2-0.9); Monocytes % 11.8 %; Neutrophils # 3.49 10^3/uL (1.8-7.7); Neutrophils % 62.2 %; Nucleated Red Blood Cells % 0 %; Platelet Count 352 10^3/cmm (130-400); Red Blood Count 4.63 10^6/uL (4.1-5.3); Red Cell Distribution Width 13.7 % (12.1-15.1); White Blood Count 5.6 10^3/uL (4.0-10.0)
[2022-08-08 08:55] LABS: Alanine Aminotransferase 21 U/L (0-41); Albumin Level 3.6 g/dL (3.5-5.2); Alkaline Phosphatase 64 U/L (40-130); Aspartate Amino Transferase 19 U/L (0-40); Blood Urea Nitrogen 8 mg/dL (8-23); Calcium 9.1 mg/dL (8.5-10.5); Carbon Dioxide 23 mmol/L (22-29); Chloride 106 mmol/L (98-107); Globulin 2.6 g/dL (1.3-4.6); Glomerular Filtration Rate 135.6 mL/min (90-130); Glucose 107 mg/dL (65-115); Osmolality Calculated 287 mOsm/kg (285-295); Sodium 139 mmol/L (136-145); Total Bilirubin 0.5 mg/dL (0.15-1.2); Total Protein 6.2 g/dL (6.6-8.7)
[2022-08-08] MEDS: sodium chloride 0.9% 250 ML 75 ML IV (09:38)
[2022-08-08] MEDS: palonosetron 0.25 mg/5 mL SDV IVP (09:40)
[2022-08-08] MEDS: famotidine 20 mg/2 mL INJ IVP (09:41)
[2022-08-08] MEDS: diphenhydrAMINE 50 mg/mL SDV 1mL IVP (09:43)
[2022-08-08] MEDS: atropine 1 mg/mL SDV 1 mL 0.4 MG IV (09:48)
[2022-08-08] MEDS: acetaminophen 325 mg Tablet 650 MG PO (09:55)
[2022-08-08 11:45] VITALS: BP 131/83; PULSE 66; RESP 16; TEMP 35.9; O2SAT 95
== END 2022-08-15 23:59 | disposition home or self-care (01) ==
PROVIDERS: PCP Family Medicine; Visit Provider Internal Medicine Medical Oncology
DX: Z51.11 Encounter for antineoplastic chemotherapy (principal); C18.7 Malignant neoplasm of sigmoid colon; C79.89 Secondary malignant neoplasm of other specified sites; Z79.52 Long term (current) use of systemic steroids
CPT/HCPCS: 36415; 36593; 80053; 82378; 85025; 96367; 96375; 96413; 96415; J0461; J1100; J1200; J2469; J2997; J3490; J7050; J7060; J9206

== ENCOUNTER 2022-09-05 08:00 | Oncology outpatient (recurring) (ONCR) | payer BC, SELFPAY ==
[2022-08-22 08:39] LABS: Basophils # 0.1 10^3/uL (0.0-0.1); Eosinophils # 0.1 10^3/uL (0.0-0.8); Eosinophils % 2.5 %; Hematocrit 43.4 % (42.0-52.0); Hemoglobin 14.5 g/dL (11.7-16.6); Lymphocytes # 1.2 10^3/uL (0.8-4.8); Lymphocytes % 23.3 %; Mean Corpuscular HGB Conc 33.4 g/dL (30.0-36.0); Mean Corpuscular Hemoglobin 31.7 pg (28.0-34.0); Mean Corpuscular Volume 94.8 fl (80-94); Mean Platelet Volume 9.6 fL (7.4-10.4); Monocytes # 0.7 10^3/uL (0.2-0.9); Monocytes % 13.4 %; Neutrophils # 3.07 10^3/uL (1.8-7.7); Neutrophils % 59.4 %; Nucleated Red Blood Cells % 0 %; Platelet Count 425 10^3/cmm (130-400); Red Blood Count 4.58 10^6/uL (4.1-5.3); Red Cell Distribution Width 13.4 % (12.1-15.1); White Blood Count 5.2 10^3/uL (4.0-10.0)
[2022-08-22 09:12] LABS: Carcinoembryonic Antigen 11.7 ng/mL (0.0-4.7)
[2022-08-22 09:28] LABS: Alanine Aminotransferase 16 U/L (0-41); Albumin Level 3.8 g/dL (3.5-5.2); Alkaline Phosphatase 68 U/L (40-130); Anion Gap 14.1 (5-19); Aspartate Amino Transferase 14 U/L (0-40); Blood Urea Nitrogen 8 mg/dL (8-23); Calcium 8.9 mg/dL (8.5-10.5); Carbon Dioxide 25 mmol/L (22-29); Chloride 105 mmol/L (98-107); Globulin 2.7 g/dL (1.3-4.6); Glomerular Filtration Rate 135.6 mL/min (90-130); Glucose 111 mg/dL (65-115); Osmolality Calculated 289 mOsm/kg (285-295); Potassium 4.1 mmol/L (3.5-5.1); Sodium 140 mmol/L (136-145); Total Bilirubin 0.3 mg/dL (0.15-1.2); Total Protein 6.5 g/dL (6.6-8.7)
[2022-08-22] MEDS: sodium chloride 0.9% 250 ML 75 ML IV (10:09)
[2022-08-22] MEDS: palonosetron 0.25 mg/5 mL SDV IVP (10:10)
[2022-08-22] MEDS: famotidine 20 mg/2 mL INJ IVP (10:12)
[2022-08-22] MEDS: diphenhydrAMINE 50 mg/mL SDV 1mL IVP (10:14)
[2022-08-22] MEDS: atropine 1 mg/mL SDV 1 mL 0.4 MG IV (10:23)
[2022-08-22] MEDS: acetaminophen 325 mg Tablet 650 MG PO (10:29)
[2022-08-22] MEDS: dextrose 5% 250 ML 75 ML IV (12:01)
[2022-08-22 13:40] VITALS: BP 130/79; PULSE 71; TEMP 36; O2SAT 96
[2022-09-05 08:17] LABS: Basophils % 0.6 %; Eosinophils # 0.2 10^3/uL (0.0-0.8); Eosinophils % 3.6 %; Hematocrit 43.6 % (42.0-52.0); Hemoglobin 14.6 g/dL (11.7-16.6); Lymphocytes # 1.3 10^3/uL (0.8-4.8); Lymphocytes % 19.5 %; Mean Corpuscular HGB Conc 33.5 g/dL (30.0-36.0); Mean Corpuscular Hemoglobin 31.5 pg (28.0-34.0); Mean Corpuscular Volume 94.2 fl (80-94); Mean Platelet Volume 9.6 fL (7.4-10.4); Monocytes # 0.7 10^3/uL (0.2-0.9); Monocytes % 11.5 %; Neutrophils # 4.17 10^3/uL (1.8-7.7); Neutrophils % 64.5 %; Nucleated Red Blood Cells % 0 %; Platelet Count 364 10^3/cmm (130-400); Red Blood Count 4.63 10^6/uL (4.1-5.3); Red Cell Distribution Width 13.4 % (12.1-15.1); White Blood Count 6.5 10^3/uL (4.0-10.0)
[2022-09-05 08:40] LABS: Alanine Aminotransferase 14 U/L (0-41); Albumin Level 3.9 g/dL (3.5-5.2); Alkaline Phosphatase 69 U/L (40-130); Anion Gap 12.4 (5-19); Aspartate Amino Transferase 15 U/L (0-40); Blood Urea Nitrogen 10 mg/dL (8-23); Calcium 9.1 mg/dL (8.5-10.5); Carbon Dioxide 27 mmol/L (22-29); Chloride 104 mmol/L (98-107); Globulin 2.6 g/dL (1.3-4.6); Glomerular Filtration Rate 135.6 mL/min (90-130); Glucose 108 mg/dL (65-115); Osmolality Calculated 288 mOsm/kg (285-295); Potassium 4.4 mmol/L (3.5-5.1); Sodium 139 mmol/L (136-145); Total Bilirubin 0.2 mg/dL (0.15-1.2); Total Protein 6.5 g/dL (6.6-8.7)
[2022-09-05] MEDS: palonosetron 0.25 mg/5 mL SDV IVP (09:16)
[2022-09-05] MEDS: sodium chloride 0.9% 250 ML 75 ML IV (09:16)
[2022-09-05] MEDS: famotidine 20 mg/2 mL INJ IVP (09:19)
[2022-09-05] MEDS: diphenhydrAMINE 50 mg/mL SDV 1mL IVP (09:21)
[2022-09-05] MEDS: atropine 1 mg/mL SDV 1 mL 0.4 MG IV (09:25)
[2022-09-05] MEDS: acetaminophen 325 mg Tablet 650 MG PO (09:27)
[2022-09-05 09:32] VITALS: BP 131/89; PULSE 76; RESP 16; TEMP 36.3; O2SAT 96
[2022-09-05] MEDS: dextrose 5% 250 ML 75 ML IV (11:07)
[2022-09-05 12:33] VITALS: BP 133/80; PULSE 71; RESP 16; TEMP 36.3; O2SAT 96
== END 2022-09-15 23:59 | disposition home or self-care (01) ==
PROVIDERS: PCP Family Medicine; Visit Provider Internal Medicine Medical Oncology
DX: Z51.11 Encounter for antineoplastic chemotherapy (principal); C18.7 Malignant neoplasm of sigmoid colon; Z79.52 Long term (current) use of systemic steroids
CPT/HCPCS: 80053; 82378; 85025; 96367; 96375; 96413; 96417; J0461; J1100; J1200; J2469; J3490; J7050; J7060; J9206; J9303

== ENCOUNTER 2022-10-03 09:51 | Oncology outpatient (recurring) (ONCR) | payer BC, SELFPAY ==
[2022-09-19 08:28] LABS: Basophils % 0.6 %; Eosinophils # 0.2 10^3/uL (0.0-0.8); Eosinophils % 2.5 %; Hematocrit 44.1 % (42.0-52.0); Hemoglobin 14.7 g/dL (11.7-16.6); Lymphocytes # 1.2 10^3/uL (0.8-4.8); Lymphocytes % 17.5 %; Mean Corpuscular HGB Conc 33.3 g/dL (30.0-36.0); Mean Corpuscular Hemoglobin 31.2 pg (28.0-34.0); Mean Corpuscular Volume 93.6 fl (80-94); Mean Platelet Volume 9.8 fL (7.4-10.4); Monocytes # 0.7 10^3/uL (0.2-0.9); Monocytes % 10.6 %; Neutrophils % 68.7 %; Nucleated Red Blood Cells % 0 %; Platelet Count 378 10^3/cmm (130-400); Red Blood Count 4.71 10^6/uL (4.1-5.3); Red Cell Distribution Width 13.1 % (12.1-15.1); White Blood Count 6.7 10^3/uL (4.0-10.0)
[2022-09-19 08:56] LABS: Carcinoembryonic Antigen 23.1 ng/mL (0.0-4.7)
[2022-09-19 09:07] LABS: Alanine Aminotransferase 13 U/L (0-41); Alkaline Phosphatase 67 U/L (40-130); Anion Gap 15.3 (5-19); Aspartate Amino Transferase 13 U/L (0-40); Blood Urea Nitrogen 8 mg/dL (8-23); Calcium 8.9 mg/dL (8.5-10.5); Carbon Dioxide 25 mmol/L (22-29); Chloride 102 mmol/L (98-107); Globulin 2.5 g/dL (1.3-4.6); Glomerular Filtration Rate 135.6 mL/min (90-130); Glucose 120 mg/dL (65-115); Osmolality Calculated 286 mOsm/kg (285-295); Potassium 4.3 mmol/L (3.5-5.1); Sodium 138 mmol/L (136-145); Total Bilirubin 0.4 mg/dL (0.15-1.2); Total Protein 6.5 g/dL (6.6-8.7)
[2022-09-19] MEDS: sodium chloride 0.9% 250 ML 75 ML IV (10:20)
[2022-09-19] MEDS: palonosetron 0.25 mg/5 mL SDV IVP (10:20)
[2022-09-19] MEDS: famotidine 20 mg/2 mL INJ IVP (10:22)
[2022-09-19] MEDS: diphenhydrAMINE 50 mg/mL SDV 1mL IVP (10:25)
[2022-09-19] MEDS: atropine 1 mg/mL SDV 1 mL 0.4 MG IV (10:31)
[2022-09-19] MEDS: acetaminophen 325 mg Tablet 650 MG PO (10:32)
[2022-09-19] MEDS: dextrose 5% 250 ML 75 ML IV (12:07)
[2022-09-19] MEDS: IRINOTECAN IV (12:07)
[2022-09-19] MEDS: DEXTROSE 5% IV (12:07)
[2022-09-19 13:40] VITALS: BP 122/76; PULSE 66; RESP 16; TEMP 36.4; O2SAT 95
[2022-10-03 08:04] VITALS: BP 149/88; PULSE 87; RESP 16; TEMP 35.9; O2SAT 95
[2022-10-03 08:37] LABS: Basophils # 0.1 10^3/uL (0.0-0.1); Basophils % 0.7 %; Eosinophils # 0.2 10^3/uL (0.0-0.8); Eosinophils % 2.2 %; Hematocrit 43.1 % (42.0-52.0); Hemoglobin 14.6 g/dL (11.7-16.6); Lymphocytes # 1.2 10^3/uL (0.8-4.8); Lymphocytes % 16.7 %; Mean Corpuscular HGB Conc 33.9 g/dL (30.0-36.0); Mean Corpuscular Hemoglobin 31.7 pg (28.0-34.0); Mean Corpuscular Volume 93.7 fl (80-94); Monocytes # 0.9 10^3/uL (0.2-0.9); Monocytes % 12.7 %; Neutrophils # 4.63 10^3/uL (1.8-7.7); Neutrophils % 67.4 %; Nucleated Red Blood Cells % 0 %; Platelet Count 403 10^3/cmm (130-400); Red Cell Distribution Width 13.4 % (12.1-15.1); White Blood Count 6.9 10^3/uL (4.0-10.0)
[2022-10-03 08:59] LABS: Alanine Aminotransferase 12 U/L (0-41); Albumin Level 3.7 g/dL (3.5-5.2); Alkaline Phosphatase 66 U/L (40-130); Anion Gap 11.1 (5-19); Aspartate Amino Transferase 13 U/L (0-40); Blood Urea Nitrogen 9 mg/dL (8-23); Calcium 9.1 mg/dL (8.5-10.5); Carbon Dioxide 27 mmol/L (22-29); Chloride 105 mmol/L (98-107); Globulin 2.7 g/dL (1.3-4.6); Glomerular Filtration Rate 135.6 mL/min (90-130); Glucose 114 mg/dL (65-115); Osmolality Calculated 288 mOsm/kg (285-295); Potassium 4.1 mmol/L (3.5-5.1); Sodium 139 mmol/L (136-145); Total Bilirubin 0.4 mg/dL (0.15-1.2); Total Protein 6.4 g/dL (6.6-8.7)
[2022-10-03] MEDS: sodium chloride 0.9% 250 ML 75 ML IV (09:34)
[2022-10-03] MEDS: palonosetron 0.25 mg/5 mL SDV IVP (09:34)
[2022-10-03] MEDS: famotidine 20 mg/2 mL INJ IVP (09:35)
[2022-10-03] MEDS: diphenhydrAMINE 50 mg/mL SDV 1mL IVP (09:37)
[2022-10-03] MEDS: atropine 1 mg/mL SDV 1 mL 0.4 MG IV (09:42)
[2022-10-03] MEDS: acetaminophen 325 mg Tablet 650 MG PO (09:44)
[2022-10-03 12:56] VITALS: BP 113/64; PULSE 71; RESP 16; TEMP 36.4; O2SAT 93
== END 2022-10-16 23:59 | disposition home or self-care (01) ==
PROVIDERS: PCP Family Medicine; Visit Provider Internal Medicine Medical Oncology
DX: Z51.11 Encounter for antineoplastic chemotherapy (principal); C18.7 Malignant neoplasm of sigmoid colon
CPT/HCPCS: 80053; 82378; 85025; 96367; 96372; 96375; 96413; 96415; 96417; J0461; J1100; J1200; J2469; J3490; J7050; J7060; J9206; J9303

== ENCOUNTER 2022-10-09 06:53 | Outpatient (CLI) | payer BC, SELFPAY ==
--- NOTE | 2022-10-09 08:30 | CT_ITS ---
WS: [id number] CT CHEST, ABDOMEN, AND PELVIS TECHNIQUE: Contrast-enhanced CT of the chest, abdomen, and pelvis with coronal and sagittal reformatt ed images. CLINICAL INFORMATION: Restaging COMPARISON: 07/09/2022 and 12/11/2021 DLP: 1540.[address] scans at [facility] use at least one of these dose optimization techniques: automated e xposure control; mA and/or kV adjustment per patient size (includes targeted exams where dose is matc hed to clinical indication); or iterative reconstruction. CT CHEST: Lungs are well aerated. No acute pulmonary infiltrates. No focal pneumonia or pleural fluid. No suspi cious pulmonary parenchymal opacities. No evidence of metastatic disease in the chest. Normal caliber thoracic aorta. No progressed mediastinal or hilar lymphadenopathy. Slightly prominent RIGHT hilar l ymph node measuring 11 mm is unchanged. No axillary lymphadenopathy. Normal thoracic spine. A few pro minent pericardial fat lymph nodes adjacent to the LEFT ventricle. CT ABDOMEN AND PELVIS: Prior postoperative changes rectosigmoid anastomosis. Evidence of peritoneal carcinomatosis with prog ressed nodularity compared to previous. This is progressed about the body and distal stomach. Associa omid peritoneal nodularity and induration in the upper abdomen is significantly progressed. More confl uent areas of carcinomatosis are identified. Increased small amount of fluid about the liver and sple en. Carcinomatosis appears progressed. Small amount of perihepatic ascites. Diffuse fatty infiltratio n liver. Perisplenic ascites. Adrenal glands are normal. Normal renal parenchymal enhancement. No hydronephrosis. Normal pancreatic parenchymal enhancement. Normal GE junction. Normal caliber abdominal aorta. Small periaortic aortic and retroperitoneal lymph nodes appear unchanged. A few small rectosigmoid lymph nodes the largest m easuring 8 mm along the RIGHT rectosigmoid appear slightly progressed. Stable prominent RIGHT iliac l ymph node. Prostate calcification. Postoperative changes in the anterior abdominal wall. Sclerotic lesion LEFT i lium unchanged. CT/CT chest abd pel w con* IMPRESSION: 1. No evidence of new or progressed metastatic disease in the chest. Slight pr ominent 11 mm RIGHT hilar lymph node is unchanged. 2. Prior postoperative changes rectosigmoid anastomosis. 3. Peritoneal carcinomatosis appears progressed with increased areas of nodula rity in the ventral mesentery. 4. A few small perirectal lymph nodes the largest measuring 8 mm along the RIG HT rectosigmoid appear slightly progressed. 5. Small amount of perihepatic and perisplenic fluid. 6. Numerous small periaortic and retroperitoneal lymph nodes unchanged. 7. No other remarkable changes compared to previous.
[2022-10-09] MEDS: iohexol 350 mg/mL 500 mL Btl (per mL) IV (08:40)
[2022-10-09] MEDS: iohexol 350 mg/mL 500 mL Btl (per mL) PO (08:41)
== END 2022-10-09 06:54 | disposition home or self-care (01) ==
LOC: RAD 06:55
PROVIDERS: PCP Family Medicine; Visit Provider Internal Medicine Medical Oncology
DX: C18.7 Malignant neoplasm of sigmoid colon (principal); C78.6 Secondary malignant neoplasm of retroperitoneum and peritoneum
CPT/HCPCS: 71260; 74177; Q9967

== ENCOUNTER 2022-10-31 09:00 | Oncology outpatient (recurring) (ONCR) | payer BC, SELFPAY ==
[2022-10-17 08:42] LABS: Basophils % 0.5 %; Eosinophils # 0.2 10^3/uL (0.0-0.8); Eosinophils % 2.6 %; Hematocrit 43.5 % (42.0-52.0); Hemoglobin 14.4 g/dL (11.7-16.6); Mean Corpuscular HGB Conc 33.1 g/dL (30.0-36.0); Mean Corpuscular Hemoglobin 30.8 pg (28.0-34.0); Mean Corpuscular Volume 92.9 fl (80-94); Mean Platelet Volume 9.6 fL (7.4-10.4); Monocytes # 0.8 10^3/uL (0.2-0.9); Monocytes % 10.3 %; Neutrophils # 5.84 10^3/uL (1.8-7.7); Neutrophils % 73.3 %; Nucleated Red Blood Cells % 0 %; Platelet Count 410 10^3/cmm (130-400); Red Blood Count 4.68 10^6/uL (4.1-5.3); Red Cell Distribution Width 13.3 % (12.1-15.1)
[2022-10-17 09:09] LABS: Alanine Aminotransferase 7 U/L (0-41); Alkaline Phosphatase 68 U/L (40-130); Anion Gap 13.6 (5-19); Aspartate Amino Transferase 12 U/L (0-40); Blood Urea Nitrogen 8 mg/dL (8-23); Calcium 8.7 mg/dL (8.5-10.5); Carbon Dioxide 26 mmol/L (22-29); Chloride 105 mmol/L (98-107); Globulin 2.6 g/dL (1.3-4.6); Glomerular Filtration Rate 135.6 mL/min (90-130); Glucose 114 mg/dL (65-115); Osmolality Calculated 289 mOsm/kg (285-295); Potassium 4.6 mmol/L (3.5-5.1); Sodium 140 mmol/L (136-145); Total Bilirubin 0.4 mg/dL (0.15-1.2); Total Protein 6.6 g/dL (6.6-8.7)
[2022-10-17] MEDS: sodium chloride 0.9% 250 ML 75 ML IV (10:56)
[2022-10-17] MEDS: palonosetron 0.25 mg/5 mL SDV IVP (10:56)
[2022-10-17] MEDS: famotidine 20 mg/2 mL INJ IVP (10:58)
[2022-10-17] MEDS: diphenhydrAMINE 50 mg/mL SDV 1mL IVP (10:59)
[2022-10-17] MEDS: atropine 1 mg/mL SDV 1 mL 0.4 MG IV (11:04)
[2022-10-17] MEDS: acetaminophen 325 mg Tablet 650 MG PO (11:08)
[2022-10-17 12:28] VITALS: BP 117/74; PULSE 70; RESP 16; TEMP 35.9; O2SAT 95
== END 2022-11-13 23:59 | disposition home or self-care (01) ==
PROVIDERS: Nurse Practitioner; PCP Family Medicine; Visit Provider Nurse Practitioner Family
DX: C18.7 Malignant neoplasm of sigmoid colon
CPT/HCPCS: 80053; 85025; 96367; 96375; 96413; 96415; 96417; J0461; J1100; J1200; J2469; J3490; J7050; J7060; J9206; J9303

== ENCOUNTER 2022-11-24 02:09 | Inpatient (IN) | payer BC, SELFPAY ==
[2022-11-24] VITALS (12 sets, daily range): BP systolic 123–142; BP diastolic 70–93; PULSE 75–99; RESP 14–19; TEMP 36.5–37; O2SAT 91–97; BMI 39.2
--- NOTE | 2022-11-24 02:29 | CTR_ITS ---
PROCEDURE INFORMATION: Exam: CT Abdomen And Pelvis With Contrast Exam date and time: 11/24/2022 2:51 AM Age: 62 years old Clinical indication: Vomiting; Prior surgery; Surgery date: 6+ months; Surgery type: Shiva-colectomy or partial colectomy for colon CA TECHNIQUE: Imaging protocol: Computed tomography of the abdomen and pelvis with contrast. Radiation optimization: All CT scans at this facility use at least one of these dose optimization techniques: automated exposure control; mA and/or kV adjustment per patient size (includes targeted exams where dose is matched to clinical indication); or iterative reconstruction. Contrast material: OMNI 350; Contrast volume: 100 ml; Contrast route: INTRAVENOUS (IV); REPORTING DATA: Count of CT and Cardiac NM exams in prior 12 months: This patient has received 2 known CTs and 0 known cardiac nuclear medicine studies in the 12 months prior to the current study. COMPARISON: CT chest abdpel w/*[id number] 10/09/2022 8:24 AM RADIATION DOSE METRICS: Total DLP (mGy-cm): 1136.9 FINDINGS: Lungs: The visualized portions of the lung bases are normal. Liver: Normal liver attenuation. No mass. Gallbladder and bile ducts: No calcified stones. No biliary ductal dilatation. Pancreas: Unremarkable CT appearance of the pancreatic parenchyma. No ductal dilatation. Spleen: Normal splenic parenchymal attenuation. No splenomegaly. Adrenal glands: Normal CT appearance of the adrenals. No mass. Kidneys and ureters: Normal renal contour. No mass seen. No hydronephrosis. Stomach and bowel: The non-contrast opacified stomach is not well distended with relative gastric fold prominence. Assessment is limited. Some nonspecific moderately distended loops of small bowel are seen with some decompressed distal small bowel loops. The transition zone is not definitively visualized on the CT. These findings could represent partial small bowel obstruction. CT after oral contrast administration or small-bowel follow-through exam may be performed for further assessment. Moderately distended loops of colon are seen in the abdomen and pelvis to the level of the rectal anastomosis in the pelvis. Moderate fecal material is seen in the ascending colon. This could be related to anastomotic stricture. Enema exam or CT after rectal contrast administration may be performed for further assessment. Appendix: The appendix is not definitively visualized on the CT. Intraperitoneal space: Unchanged multiple regions of abdominal peritoneal nodularity and thickening is seen (series 3, image 18, series 3, image 28, series 3, image 40, series 3, images 54-57 and series 5, images 19 and 20). These findings are consistent with peritoneal carcinomatosis. Unchanged tiny upper abdominal ascites is seen. No pneumoperitoneum. Vasculature: No abdominal aortic aneurysm. IVC and portal venous structures are unremarkable. Lymph nodes: Unchanged prominent aortocaval and left para-aortic lymph nodes are seen, the largest measuring 1 x 1 cm. Urinary bladder: The bladder is not well distended with relative wall prominence. Assessment is limited. Reproductive: Unremarkable as visualized. Bones/joints: No acute osseous abnormality seen. Unchanged degenerative disc disease changes with vacuum phenomenon are seen at the L5-S1 level. Unchanged mild bilateral hip degenerative changes. Soft tissues: Unchanged mild to moderate body wall edema is seen. Some regions of subcutaneous fat stranding are seen in bilateral anterior mid to lower abdominal regions, suggestive of postsurgical change. CT/CT abdomen pelvis w con* [id number] IMPRESSION: 1. Some nonspecific moderately distended loops of small bowel with some decompressed distal small bowel loops. The transition zone is not definitively visualized on the CT. These findings could represent partial small bowel obstruction. CT after oral contrast administration or small-bowel follow-through exam may be performed for further assessment. 2. Moderately distended loops of colon seen in the abdomen and pelvis to the level of the rectal anastomosis in the pelvis. This could be related to anastomotic stricture. Enema exam or CT after rectal contrast administration may be performed for further assessment. 3. Unchanged multiple regions of abdominal peritoneal nodularity and thickening (series 3, image 18, series 3, image 28, series 3, image 40, series 3, images 54-57 and series 5, images 19 and 20). These findings are consistent with peritoneal carcinomatosis. Unchanged tiny upper abdominal ascites. Unchanged prominent retroperitoneal lymph nodes.
--- NOTE | 2022-11-24 02:30 | W.ED.ABDPA2 ---
HPI - Abdominal Pain General: Chief Complaint: Abdominal Pain Stated Complaint: abdomen Time Seen by Provider: 11/24/22 02:14 Source: patient Mode of arrival: ambulatory Limitations: no limitations History of Present Illness: 62-year-old male has a history of colon cancer he is currently on chemo treatment he states he had a laparoscopic surgery just to investigate his abdomen last week at [facility] states that starting Saturday has been having some nausea and of the last 2 days he had multiple episodes of vomiting and less stool he denies any pain but states that he is not able to tolerate any fluids or p.o. 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 Surgical History History of colonoscopy 04/2022 with evidence of recurrence at anastomosis History of partial surgical removal of colon (03/08/21) low anterior resection for sigmoid colon cancer Port-A-Cath in place S/P laparoscopy (12/06/21) Diagnostic laparoscopy with omental biopsy Family History Other Cancer Diabetes Denies family history of CAD (coronary artery disease) Clotting disorder Dementia Hyperlipidemia Psychiatric illness Chronic kidney disease (CKD) Suicide Anesthesia complication Bleeding disorder Lung disease Hypertension Stroke Social History Smoking and tobacco status: former smoker Alcohol intake: current Alcohol intake frequency: few times a month Alcohol type: beer Physical Exam Const: COMMON NORMALS: no acute distress, patient oriented x3 and healthy appearing HENMT: COMMON NORMALS: normocephalic and atraumatic HEAD & SCALP: normocephalic and atraumatic Eye: COMMON NORMALS: Equal, round and reactive pupils present and EOMs intact bilaterally PUPIL: Yes Equal, round and reactive pupils present Neck/C-Spine: COMMON NORMALS: full ROM and supple Chest: COMMONS NORMALS: normal inspection of the chest and normal palpation of entire chest wall Resp: COMMON NORMALS: normal respiratory effort, No retractions, No use of accessory muscles and clear to auscultation bilaterally AUSCULTATION: clear to auscultation bilaterally Cardio: COMMON NORMALS: regular rate, regular rhythm and No murmurs present (Cardio) RATE: regular rate RHYTHM: regular rhythm GI: COMMON NORMALS: Normal to inspection, nondistended, normoactive bowel sounds present, Soft to palpation, non-tender and no masses PALPATION: Yes Soft to palpation Extremity: COMMON NORMALS: normal to inspection and full ROM Neuro: COMMON NORMALS: patient oriented x3, moves all extremities and no focal motor deficits Psych: COMMON NORMALS: mental status grossly normal, Normal thought process present and cooperative THOUGHT PROCESS: Normal thought process present Skin: COMMON NORMALS: no rashes or lesions noted and no wounds GENERAL SKIN EXAM: no rashes or lesions noted Course Vital Signs: Vital signs: Vital Signs Temperature 97.9 F 11/24/22 02:23 Pulse Rate 75 11/24/22 03:29 Respiratory Rate 14 11/24/22 03:29 Blood Pressure 123/70 11/24/22 03:29 Pulse Oximetry 91 11/24/22 03:29 Oxygen Delivery Me thod 11/24/22 03:29 MDM - Abdominal Pain Medical Decision Making Patient presents here with vomiting along with some abdominal pain CT shows a partial small bowel obstruction I spoke to hospitalist along with surgeon and will admit at this time we will place an NG tube in the ER. Lab Data 11/24/22 02:45 11/24/22 02:45 Labs/Radiology: Radiology Impressions Abdomen/Pelvis CT 11/24/22 02:29 IMPRESSION: 1. Some nonspecific moderately distended loops of small bowel with some decompressed distal small bowel loops. The transition zone is not definitively visualized on the CT. These findings could represent partial small bowel obstruction. CT after oral contrast administration or small-bowel follow-through exam may be performed for further assessment. 2. Moderately distended loops of colon seen in the abdomen and pelvis to the level of the rectal anastomosis in the pelvis. This could be related to anastomotic stricture. Enema exam or CT after rectal contrast administration may be performed for further assessment. 3. Unchanged multiple regions of abdominal peritoneal nodularity and thickening (series 3, image 18, series 3, image 28, series 3, image 40, series 3, images 54-57 and series 5, images 19 and 20). These findings are consistent with peritoneal carcinomatosis. Unchanged tiny upper abdominal ascites. Unchanged prominent retroperitoneal lymph nodes. Laboratory Results WBC 15.8 10^3/uL (4.0-10.0) H 11/24/22 02:45 RBC 5.29 10^6/uL (4.1-5.3) 11/24/22 02:45 Hgb 15.4 g/dL (11.7-16.6) 11/24/22 02:45 Hct 47.2 % (42.0-52.0) 11/24/22 02:45 MCV 89.2 fl (80-94) 11/24/22 02:45 MCH 29.1 pg (28.0-34.0) 11/24/22 02:45 MCHC 32.6 g/dL (30.0-36.0) 11/24/22 02:45 RDW 12.8 % (12.1-15.1) 11/24/22 02:45 Plt Count 685 10^3/cmm (130-400) H 11/24/22 02:45 MPV 10.0 fL (7.4-10.4) 11/24/22 02:45 Neut % (Auto) 82.4 % 11/24/22 02:45 Lymph % (Auto) 6.7 % 11/24/22 02:45 [place] % (Auto) 10.3 % 11/24/22 02:45 Eos % (Auto) 0.0 % 11/24/22 02:45 Baso % (Auto) 0.2 % 11/24/22 02:45 Neut # (Auto) 12.98 10^3/uL (1.8-7.7) H 11/24/22 02:45 Lymph # (Auto) 1.1 10^3/uL (0.8-4.8) 11/24/22 02:45 [place] # (Auto) 1.6 10^3/uL (0.2-0.9) H 11/24/22 02:45 Eos # (Auto) 0.0 10^3/uL (0.0-0.8) 11/24/22 02:45 Baso # (Auto) 0.0 10^3/uL (0.0-0.1) 11/24/22 02:45 Nucleated RBC % (auto) 0 % 11/24/22 02:45 Nucleated RBCs # 0.0 /100WBC 11/24/22 02:45 Sodium 135 mmol/L (136-145) L 11/24/22 02:45 Potassium 4.5 mmol/L (3.5-5.1) 11/24/22 02:45 Chloride 96 mmol/L (98-107) L 11/24/22 02:45 Carbon Dioxide 26 mmol/L (22-29) 11/24/22 02:45 Anion Gap 17.5 (5-19) 11/24/22 02:45 BUN 20 mg/dL (8-23) 11/24/22 02:45 Creatinine 0.8 mg/dL (0.7-1.2) 11/24/22 02:45 GFR Calculation 97.3 mL/min (90-130) 11/24/22 02:45 Glucose 149 mg/dL (65-115) H 11/24/22 02:45 Calculated Osmolality 285 mOsm/kg (285-295) 11/24/22 02:45 Lactate 1.7 mmol/L (0.5-2.2) 11/24/22 02:45 Calcium 9.6 mg/dL (8.5-10.5) 11/24/22 02:45 Total Bilirubin 0.8 mg/dL (0.15-1.2) 11/24/22 02:45 AST 19 U/L (0-40) 11/24/22 02:45 ALT 22 U/L (0-41) 11/24/22 02:45 Alkaline Phosphatase 58 U/L (40-130) 11/24/22 02:45 Total Protein 6.8 g/dL (6.6-8.7) 11/24/22 02:45 Albumin 3.6 g/dL (3.5-5.2) 11/24/22 02:45 Globulin 3.2 g/dL (1.3-4.6) 11/24/22 02:45 Lipase 26 U/L (13-60) 11/24/22 02:45 Discharge Plan Discharge Patient Disposition: Admitted As Inpatient Clinical Impression: Small bowel obstruction Condition: Stable Prescriptions: No Action docusate sodium [Colace] 100 mg capsule 100 mg PO DAILY PRN diphenoxylate-atropine [Lomotil] 2.5-0.025 mg tablet 2 tab PO BID PRN (Reason: diarrhea) Qty: 60 3RF ondansetron 4 mg tablet,disintegrating See Rx Instructions PO Q8H PRN (Reason: nausea and vomiting) Qty: 30 3RF Rx Instructions: Take 1-2 tabs PO every 8 hours PRN nausea and vomiting irinotecan 300 mg/15 mL solution 415 mg IV .[id number] 14 Days Qty: 20.75 12RF panitumumab 400 mg/20 mL (20 mg/mL) solution 720 mg IV Q14D 14 Days Qty: 36 12RF clindamycin phosphate 1 % gel See Rx Instructions .ROUTE .COMPLEX Qty: 60 1RF Dose Instruction: APPLY 2 TO 3 TIMES DAILY TO AFFECTED AREA Rx Instructions: APPLY 2 TO 3 TIMES DAILY TO AFFECTED AREA alprazolam 0.5 mg tablet 0.5 mg PO QID PRN (Reason: anxiety) Qty: 120 3RF Referrals: Mason Adams MD [Primary Care Provider] - Coding Level of Care Code ED Switchboard And Control Room Operator for Hany Hager
[2022-11-24] MEDS: ondansetron 2 mg/ML SDV 2 mL 4 MG IVP (02:41)
[2022-11-24] MEDS: morphine 4 mg/mL SDV 1 mL IVP (02:41)
[2022-11-24] MEDS: sodium chloride 0.9% 1,000 ML 999 ML IV (02:42)
[2022-11-24 02:53] LABS: Basophils % 0.2 %; Hematocrit 47.2 % (42.0-52.0); Hemoglobin 15.4 g/dL (11.7-16.6); Lymphocytes # 1.1 10^3/uL (0.8-4.8); Lymphocytes % 6.7 %; Mean Corpuscular HGB Conc 32.6 g/dL (30.0-36.0); Mean Corpuscular Hemoglobin 29.1 pg (28.0-34.0); Mean Corpuscular Volume 89.2 fl (80-94); Monocytes # 1.6 10^3/uL (0.2-0.9); Monocytes % 10.3 %; Neutrophils # 12.98 10^3/uL (1.8-7.7); Neutrophils % 82.4 %; Nucleated Red Blood Cells % 0 %; Platelet Count 685 10^3/cmm (130-400); Red Blood Count 5.29 10^6/uL (4.1-5.3); Red Cell Distribution Width 12.8 % (12.1-15.1); White Blood Count 15.8 10^3/uL (4.0-10.0)
[2022-11-24] MEDS: iohexol 350 mg/mL 500 mL Btl (per mL) IV (02:56)
[2022-11-24 03:10] LABS: Lactate (Lactic Acid level) 1.7 mmol/L (0.5-2.2)
[2022-11-24 03:11] LABS: Alanine Aminotransferase 22 U/L (0-41); Albumin Level 3.6 g/dL (3.5-5.2); Alkaline Phosphatase 58 U/L (40-130); Anion Gap 17.5 (5-19); Aspartate Amino Transferase 19 U/L (0-40); Blood Urea Nitrogen 20 mg/dL (8-23); Calcium 9.6 mg/dL (8.5-10.5); Carbon Dioxide 26 mmol/L (22-29); Chloride 96 mmol/L (98-107); Globulin 3.2 g/dL (1.3-4.6); Glomerular Filtration Rate 97.3 mL/min (90-130); Glucose 149 mg/dL (65-115); Lipase 26 U/L (13-60); Osmolality Calculated 285 mOsm/kg (285-295); Potassium 4.5 mmol/L (3.5-5.1); Sodium 135 mmol/L (136-145); Total Bilirubin 0.8 mg/dL (0.15-1.2); Total Protein 6.8 g/dL (6.6-8.7)
[2022-11-24] MEDS: LORazepam 2 mg/mL INJ 1 mL 1 MG IVP (04:35)
--- NOTE | 2022-11-24 04:49 | XRR_ITS ---
PROCEDURE INFORMATION: Exam: XR Chest Exam date and time: 11/24/2022 5:05 AM Age: 62 years old Clinical indication: Device placement; Ng tube; Additional info: Post ng tube placement TECHNIQUE: Imaging protocol: Radiologic exam of the chest. Views: 1 view. COMPARISON: CT chest abdpel w/*[id number] 10/09/2022 8:24 AM FINDINGS: Tubes, catheters and devices: Left subclavian Port-A-Cath is once again seen with tip overlying the superior vena cava. Nasogastric tube is seen with distal aspect coiled in the left upper abdomen, in the region of the upper stomach. Lungs: Normal lung volumes. No interstitial or air space opacities seen. Pleural spaces: No pleural effusion. No pneumothorax. Heart/Mediastinum: Normal heart size. There is a mildly tortuous thoracic aorta. Midline trachea. Bones/joints: No acute osseous abnormalities seen. Small degenerative osteophytes are seen throughout the thoracic spine. XR/XR chest 1V portable [id number] IMPRESSION: 1. No acute cardiopulmonary disease on the chest radiograph. 2. Nasogastric tube, as noted above.
[2022-11-24] MEDS: pantoprazole 40 mg SDV IVP ×2 (11:06→21:00)
[2022-11-24] MEDS: dextrose 5%-sod chloride 0.9% 1,000 ML 100 ML IV (11:06)
[2022-11-24 11:23] LABS: INR 1.13 (0.8-1.2)
[2022-11-24 11:31] LABS: C Reactive Protein 16.7 mg/L (0.0-4.9); Magnesium 2.3 mg/dL (1.7-2.3); Phosphorus 3.9 mg/dL (2.5-4.5)
[2022-11-24 11:34] LABS: Procalcitonin 0.18 ng/mL (0-0.5)
[2022-11-24 11:59] LABS: Thyroid Stimulating Hormone 2.16 uIU/mL (0.27-4.20)
--- NOTE | 2022-11-24 12:08 | PM.HP ---
Providers/Chief Complaint Admitting Physician: Poppy Alston MD Primary Care Provider: Mason Adams MD Chief Complaint: abdomen History of Present Illness Aldair Buckley is a 62 year old male with a past medical history of metastatic colon cancer, with peritoneal metastasis, who recently underwent a exploratory laproscopy at [facility], on Saturday, by Dr. Travis, who presents to [facility] due to abdominal bloating, nausea, vomiting, lack of stooling. He denies any fevers, no chills. No dysuria, no hematuria family spoke to surgeon at [facility] who recommended for him to go to emergency room. He tells me he does not have an appetite, he feels a bit better this morning, has not had a bowel movement NG tube in place as output from the NG tube, abdomen is distended but he tells me that he always is distended with his peritoneal metastasis. In the emergency room he was diagnosed with a small bowel obstruction. Review of Systems Const: Denies: fever(s) Eyes: Denies: change in vision ENMT: Denies: nasal congestion Resp: Denies: dyspnea GI: Reports: abdominal pain, nausea, vomiting and constipation : Denies: dysuria Skin/Breast: Denies: rash Neuro: Denies: headache(s), dizziness or vertigo Endo: Denies: polyuria or polydipsia Medications/Allergies Home Medications Medication Instructions Recorded Confirmed Last Taken Type irinotecan 300 mg/15 mL 415 mg (20.75 mL) IV .[id number] 14 01/31/22 11/24/22 10/17/22 Rx intravenous solution days #20.75 mL panitumumab 400 mg/20 mL (20 720 mg (36 mL) IV Q14D 14 days #36 01/31/22 11/24/22 11/14/22 Rx mg/mL) intravenous solution mL diphenoxylate-atropine 2.5 2 tab PO BID PRN diarrhea #60 tabs 02/27/22 11/24/22 Unknown Rx mg-0.025 mg tablet (Lomotil) ondansetron 4 mg disintegrating See Rx Instructions PO Q8H PRN 02/27/22 11/24/22 Unknown Rx tablet nausea and vomiting #30 tabs clindamycin phosphate 1 % topical See Rx Instructions .Route 04/25/22 11/24/22 Unknown Rx gel .COMPLEX #60 grams docusate sodium 100 mg capsule 100 mg PO DAILY PRN Constipation 05/30/22 11/24/22 Unknown History (Colace) acetaminophen 325 mg tablet 650 mg PO Q4H PRN Pain 11/24/22 11/24/22 Unknown History alprazolam 0.5 mg tablet 0.5 mg PO TID PRN anxiety 11/24/22 11/24/22 11/21/22 08:00 History Allergies Allergy/AdvReac Type Severity Reaction Status Date / Time No Known Allergies Allergy Verified 10/17/22 09:24 PFSH Acute PFSH: Medical History Colon cancer History of angina in association with infusional 5-FU chemotherapy Surgical History History of colonoscopy 04/2022 with evidence of recurrence at anastomosis History of partial surgical removal of colon (03/08/21) low anterior resection for sigmoid colon cancer Port-A-Cath in place S/P laparoscopy (12/06/21) Diagnostic laparoscopy with omental biopsy Family History Other Cancer Diabetes Denies family history of CAD (coronary artery disease) Clotting disorder Dementia Hyperlipidemia Psychiatric illness Chronic kidney disease (CKD) Suicide Anesthesia complication Bleeding disorder Lung disease Hypertension Stroke Social History Smoking and tobacco status: former smoker Alcohol intake: current Alcohol intake frequency: few times a month Alcohol type: beer Vitals/I&O/Wt Last Vital Signs Temp 98.6 F 11/24/22 12:02 Pulse 82 11/24/22 12:02 Resp 16 11/24/22 12:02 BP 127/87 11/24/22 12:02 Pulse Ox 91 11/24/22 12:02 O2 Del Method 11/24/22 12:02 11/23/22 11/24/22 11/24/22 22:59 06:59 14:59 Intake Total 1000 / 1000 Balance 1000 / 1000 Weight last 48 hrs Weight 117.027 kg Physical Exam Const: COMMON NORMALS: no acute distress and patient oriented x3 HENMT: COMMON NORMALS: normocephalic HEAD & SCALP: normocephalic Eye: COMMON NORMALS: Equal, round and reactive pupils present Neck/C-Spine: OTHER: NG tube in place Resp: COMMON NORMALS: normal respiratory effort, No retractions, No use of accessory muscles and clear to auscultation bilaterally AUSCULTATION: clear to auscultation bilaterally Cardio: COMMON NORMALS: no JVD, regular rate, regular rhythm, S1 normal heart sound present and S2 normal heart sound present RATE: regular rate RHYTHM: regular rhythm HEART SOUNDS: S1 normal heart sound present and S2 normal heart sound present GI: OTHER: Abdomen soft, distended,, decreased bowel sounds, Extremity: COMMON NORMALS: no pedal edema Neuro: COMMON NORMALS: patient oriented x3 Psych: COMMON NORMALS: mental status grossly normal Data 11/24/22 02:45 11/24/22 02:45 Micro: Microbiology 11/24/22 10:06 Blood Culture - Preliminary Blood SPECIMEN COLLECTED A&P Assessment and plan (1) Small bowel obstruction: (2) 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 ? Some nonspecific moderately distended loops of small bowel with some decompressed distal small bowel loops. The transition zone is not definitively visualized on the CT. These findings could represent partial small bowel obstruction. CT after oral contrast administration or small-bowel follow-through exam may be performed for further assessment. 2. ? Moderately distended loops of colon seen in the abdomen and pelvis to the level of the rectal anastomosis in the pelvis. This could be related to anastomotic stricture. Enema exam or CT after rectal contrast administration may be performed for further assessment. 3. ? Unchanged multiple regions of abdominal peritoneal nodularity and thickening (series 3, image 18, series 3, image 28, series 3, image 40, series 3, images 54-57 and series 5, images 19 and 20). These findings are consistent with peritoneal carcinomatosis. Unchanged tiny upper abdominal ascites. Unchanged prominent retroperitoneal lymph nodes. -Status post exploratory laparoscopy Plan -We will discuss with family about possible transfer to [facility] -Bowel rest -IV fluids -N.p.o. 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
[2022-11-24] MEDS: enoxaparin 40 mg/0.4 mL Syringe SUBCUT (13:47)
[2022-11-24 19:20] LABS: Add Urine Microscopic? YES; Bilirubin Urine 1+ (Negative); Blood Urine Neg (Negative); Glucose Urine UA Norm (Normal); Ketones Urine Negative (Negative); Leukocyte Esterase Urine Negative (Negative); Nitrate Urine Negative (Negative); Protein Urine Trace (Negative); Specific Gravity, Urine 1.015 (1.005-1.030); Urine Appearance Clear (CLEAR); Urine Color Dark Yellow (Yellow); Urobilinogen Urine 8 mg/dL (Negative); pH Urine 5 (5-7)
[2022-11-24 19:21] LABS: Bacteria Urine TRACE /hpf; Mucus Urine 1+ /hpf; RBC Urine 0-4 /hpf (0-2); Squamous Epithelial Cell Urine 0-4 /hpf (0-5); WBC Urine 0-4 /hpf (0-5)
[2022-11-24 19:22] LABS: Add Urine Culture? No
--- NOTE | 2022-12-01 19:58 | P.CONIM_ITS ---
Providers/Reason For Consult Consulting Physician/Specialty*: Dylan Varner M.D./General Surgery Reason for Consult*: Early postoperative adhesive small bowel obstruction Attending Physician: Dustin Valentine MD Primary Care Provider: Mason Adams MD History of Present Illness History of Present Illness Aldair Buckley is a 62 year old male Medications/Allergies Home Medications Medication Instructions Recorded Confirmed Last Taken Type irinotecan 300 mg/15 mL 415 mg (20.75 mL) IV .[id number] 14 01/31/22 11/24/22 10/17/22 Rx intravenous solution days #20.75 mL panitumumab 400 mg/20 mL (20 720 mg (36 mL) IV Q14D 14 days #36 01/31/22 11/24/22 11/14/22 Rx mg/mL) intravenous solution mL diphenoxylate-atropine 2.5 2 tab PO BID PRN diarrhea #60 tabs 02/27/22 11/24/22 Unknown Rx mg-0.025 mg tablet (Lomotil) ondansetron 4 mg disintegrating See Rx Instructions PO Q8H PRN 02/27/22 11/24/22 Unknown Rx tablet nausea and vomiting #30 tabs clindamycin phosphate 1 % topical See Rx Instructions .Route 04/25/22 11/24/22 Unknown Rx gel .COMPLEX #60 grams docusate sodium 100 mg capsule 100 mg PO DAILY PRN Constipation 05/30/22 11/24/22 Unknown History (Colace) acetaminophen 325 mg tablet 650 mg PO Q4H PRN Pain 11/24/22 11/24/22 Unknown History alprazolam 0.5 mg tablet 0.5 mg PO TID PRN anxiety 11/24/22 11/24/22 11/21/22 08:00 History Allergies Allergy/AdvReac Type Severity Reaction Status Date / Time No Known Allergies Allergy Verified 10/17/22 09:24 PFSH Acute PFSH: Medical History Colon cancer History of angina in association with infusional 5-FU chemotherapy Surgical History History of colonoscopy 04/2022 with evidence of recurrence at anastomosis History of partial surgical removal of colon (03/08/21) low anterior resection for sigmoid colon cancer Port-A-Cath in place S/P laparoscopy (12/06/21) Diagnostic laparoscopy with omental biopsy Family History Other Cancer Diabetes Denies family history of CAD (coronary artery disease) Clotting disorder Dementia Hyperlipidemia Psychiatric illness Chronic kidney disease (CKD) Suicide Anesthesia complication Bleeding disorder Lung disease Hypertension Stroke Social History Smoking and tobacco status: former smoker Alcohol intake: current Alcohol intake frequency: few times a month Alcohol typ e: beer Vitals/I&O/Wt Last Vital Signs Temp 98.2 F 11/24/22 19:53 Pulse 86 11/24/22 19:53 Resp 18 11/24/22 19:53 BP 123/73 11/24/22 19:53 Pulse Ox 91 11/24/22 19:22 O2 Del Method 11/24/22 17:36 Data 11/24/22 02:45 11/24/22 02:45 A&P Assessment and plan (1) Small bowel obstruction: Plan Transfer to tertiary care facility for definitive colon surgery and adhesiolysis Coding Level of Care Code Acute Code for Chg Fwd Diagnoses Small bowel obstruction K56.609
== END 2022-11-24 22:40 | disposition short-term general hospital (02) | DRG 375 ==
LOC: ER 04:35 → MEDSURG 07:01
PROVIDERS: Admitting Provider Student in an Organized Health Care Education/Training Program; Emergency Provider Emergency Medicine; PCP Family Medicine; Visit Provider Family Medicine
DX: C19 Malignant neoplasm of rectosigmoid junction (principal); C78.6 Secondary malignant neoplasm of retroperitoneum and peritoneum; K56.609 Unspecified intestinal obstruction, unspecified as to partial versus complete obstruction; Z90.49 Acquired absence of other specified parts of digestive tract; Z95.828 Presence of other vascular implants and grafts; Z87.891 Personal history of nicotine dependence
CPT/HCPCS: 36415; 71045; 74177; 80053; 81001; 83605; 83690; 83735; 84100; 84145; 84443; 85025; 85610; 86140; 87040; 96372; 96374; 96375; 99285; C9113; J1650; J2060; J2270; J2405; J7030; J7042; Q9967

== ENCOUNTER 2022-12-12 13:56 | Oncology outpatient (recurring) (ONCR) | payer BC, SELFPAY ==
[2022-12-12 10:05] VITALS: BP 135/86; PULSE 106; RESP 16; TEMP 37.1; O2SAT 95
== END 2022-12-14 23:59 | disposition home or self-care (01) ==
LOC: ONCMED 13:56
PROVIDERS: PCP Family Medicine; Visit Provider Nurse Practitioner Family
DX: C18.7 Malignant neoplasm of sigmoid colon; C78.6 Secondary malignant neoplasm of retroperitoneum and peritoneum; C77.8 Secondary and unspecified malignant neoplasm of lymph nodes of multiple regions; C79.89 Secondary malignant neoplasm of other specified sites; Z90.49 Acquired absence of other specified parts of digestive tract; Z79.899 Other long term (current) drug therapy

== ENCOUNTER 2022-12-24 09:05 | Outpatient (CLI) | payer BC, SELFPAY ==
[2022-12-21 12:23] VITALS: BMI 38.0
[2022-12-24 09:25] VITALS: BP 123/86; PULSE 118; RESP 18; TEMP 36.5; O2SAT 93
--- NOTE | 2022-12-24 09:31 | US_ITS ---
WS: [id number] ULTRASOUND-GUIDED THERAPEUTIC PARACENTESIS Procedure, risks, and complications have been explained to the patient. Consent is obtained. Utilizing aseptic technique and 1% buffered lidocaine, a small dermatome was made through which a 5 F rench Yueh catheter was inserted. Approximately 8000 ml of clear peritoneal fluid was obtained witho ut difficulty. No complications encountered. US/US paracentesis abd w [id number] IMPRESSION: Uncomplicated paracentesis yielding 8000 ml of peritoneal fluid.
[2022-12-24 11:32] VITALS: BP 121/64; PULSE 90; RESP 17; O2SAT 96
== END 2022-12-24 11:41 | disposition home or self-care (01) ==
PROVIDERS: Radiology Diagnostic Radiology; PCP Family Medicine; Visit Provider Nurse Practitioner Family
PROC: (CPT 49082; principal; 2022-12-24 10:15)
DX: R14.0 Abdominal distension (gaseous) (principal)
CPT/HCPCS: 49083

== ENCOUNTER 2023-01-09 08:00 | Oncology outpatient (recurring) (ONCR) | payer BC, SELFPAY ==
[2022-12-19 08:08] VITALS: BP 124/87; PULSE 104; RESP 16; TEMP 36.7; O2SAT 95
[2022-12-19 08:29] LABS: Basophils # 0.1 10^3/uL (0.0-0.1); Basophils % 0.6 %; Eosinophils # 0.1 10^3/uL (0.0-0.8); Eosinophils % 0.7 %; Hematocrit 40.7 % (42.0-52.0); Hemoglobin 13.3 g/dL (11.7-16.6); Lymphocytes # 1.1 10^3/uL (0.8-4.8); Lymphocytes % 12.5 %; Mean Corpuscular HGB Conc 32.7 g/dL (30.0-36.0); Mean Corpuscular Hemoglobin 28.6 pg (28.0-34.0); Mean Corpuscular Volume 87.5 fl (80-94); Mean Platelet Volume 9.8 fL (7.4-10.4); Monocytes # 1.1 10^3/uL (0.2-0.9); Neutrophils # 6.39 10^3/uL (1.8-7.7); Nucleated Red Blood Cells % 0 %; Platelet Count 598 10^3/cmm (130-400); Red Blood Count 4.65 10^6/uL (4.1-5.3); Red Cell Distribution Width 13.6 % (12.1-15.1); White Blood Count 8.8 10^3/uL (4.0-10.0)
[2022-12-19 09:18] LABS: Carcinoembryonic Antigen 175.7 ng/mL (0.0-4.7)
[2022-12-19 09:30] LABS: Alanine Aminotransferase 17 U/L (0-41); Albumin Level 2.9 g/dL (3.5-5.2); Alkaline Phosphatase 72 U/L (40-130); Anion Gap 14.2 (5-19); Aspartate Amino Transferase 22 U/L (0-40); Blood Urea Nitrogen 8 mg/dL (8-23); Calcium 8.6 mg/dL (8.5-10.5); Carbon Dioxide 25 mmol/L (22-29); Chloride 100 mmol/L (98-107); Globulin 3.5 g/dL (1.3-4.6); Glomerular Filtration Rate 135.6 mL/min (90-130); Glucose 112 mg/dL (65-115); Osmolality Calculated 279 mOsm/kg (285-295); Potassium 4.2 mmol/L (3.5-5.1); Sodium 135 mmol/L (136-145); Total Bilirubin 0.5 mg/dL (0.15-1.2); Total Protein 6.4 g/dL (6.6-8.7)
[2022-12-19] MEDS: dextrose 5% 250 ML 75 ML IV (10:11)
[2022-12-19] MEDS: palonosetron 0.25 mg/5 mL SDV IVP (10:14)
[2022-12-19] MEDS: oxaliplatin 192 MG in dextrose 5% 250 ML 72.1 MG IV (10:54)
[2022-12-19 14:40] VITALS: BP 116/71; PULSE 83; RESP 16; TEMP 36.8; O2SAT 95
[2022-12-26 08:02] VITALS: BP 122/84; PULSE 96; RESP 16; TEMP 36.6; O2SAT 99
[2022-12-26 08:30] LABS: Basophils % 0.3 %; Eosinophils # 0.1 10^3/uL (0.0-0.8); Eosinophils % 1.1 %; Hematocrit 41.1 % (42.0-52.0); Hemoglobin 13.2 g/dL (11.7-16.6); Lymphocytes # 1.2 10^3/uL (0.8-4.8); Mean Corpuscular HGB Conc 32.1 g/dL (30.0-36.0); Mean Corpuscular Hemoglobin 28.2 pg (28.0-34.0); Mean Corpuscular Volume 87.8 fl (80-94); Mean Platelet Volume 9.5 fL (7.4-10.4); Monocytes # 1.8 10^3/uL (0.2-0.9); Monocytes % 15.3 %; Neutrophils % 72.8 %; Nucleated Red Blood Cells % 0 %; Platelet Count 605 10^3/cmm (130-400); Red Blood Count 4.68 10^6/uL (4.1-5.3); Red Cell Distribution Width 13.6 % (12.1-15.1); White Blood Count 11.8 10^3/uL (4.0-10.0)
[2022-12-26 08:52] LABS: Alanine Aminotransferase 11 U/L (0-41); Albumin Level 2.7 g/dL (3.5-5.2); Alkaline Phosphatase 61 U/L (40-130); Anion Gap 12.9 (5-19); Aspartate Amino Transferase 14 U/L (0-40); Blood Urea Nitrogen 8 mg/dL (8-23); Calcium 8.2 mg/dL (8.5-10.5); Carbon Dioxide 27 mmol/L (22-29); Chloride 100 mmol/L (98-107); Globulin 3.3 g/dL (1.3-4.6); Glomerular Filtration Rate 135.6 mL/min (90-130); Glucose 104 mg/dL (65-115); Osmolality Calculated 281 mOsm/kg (285-295); Potassium 3.9 mmol/L (3.5-5.1); Sodium 136 mmol/L (136-145); Total Bilirubin 0.4 mg/dL (0.15-1.2)
[2023-01-02 08:05] VITALS: BP 133/77; PULSE 98; RESP 16; TEMP 35.9; O2SAT 97
[2023-01-02 08:27] LABS: Basophils # 0.1 10^3/uL (0.0-0.1); Basophils % 0.5 %; Eosinophils # 0.1 10^3/uL (0.0-0.8); Eosinophils % 0.5 %; Hematocrit 39.6 % (42.0-52.0); Hemoglobin 12.8 g/dL (11.7-16.6); Lymphocytes # 1.1 10^3/uL (0.8-4.8); Lymphocytes % 10.3 %; Mean Corpuscular HGB Conc 32.3 g/dL (30.0-36.0); Mean Corpuscular Hemoglobin 27.9 pg (28.0-34.0); Mean Corpuscular Volume 86.3 fl (80-94); Mean Platelet Volume 9.4 fL (7.4-10.4); Monocytes # 1.4 10^3/uL (0.2-0.9); Monocytes % 13.1 %; Neutrophils # 8.21 10^3/uL (1.8-7.7); Neutrophils % 75.1 %; Nucleated Red Blood Cells % 0 %; Platelet Count 679 10^3/cmm (130-400); Red Blood Count 4.59 10^6/uL (4.1-5.3); Red Cell Distribution Width 13.8 % (12.1-15.1); White Blood Count 10.9 10^3/uL (4.0-10.0)
[2023-01-02 08:51] LABS: Alanine Aminotransferase 8 U/L (0-41); Albumin Level 2.6 g/dL (3.5-5.2); Alkaline Phosphatase 79 U/L (40-130); Aspartate Amino Transferase 15 U/L (0-40); Blood Urea Nitrogen 9 mg/dL (8-23); Calcium 8.2 mg/dL (8.5-10.5); Carbon Dioxide 26 mmol/L (22-29); Chloride 98 mmol/L (98-107); Globulin 3.6 g/dL (1.3-4.6); Glomerular Filtration Rate 167.4 mL/min (90-130); Glucose 117 mg/dL (65-115); Osmolality Calculated 276 mOsm/kg (285-295); Sodium 133 mmol/L (136-145); Total Bilirubin 0.4 mg/dL (0.15-1.2); Total Protein 6.2 g/dL (6.6-8.7)
[2023-01-02 08:55] LABS: Anion Gap 12.9 (5-19); Potassium 3.9 mmol/L (3.5-5.1)
[2023-01-02] MEDS: dextrose 5% 250 ML 75 ML IV (09:27)
[2023-01-02] MEDS: palonosetron 0.25 mg/5 mL SDV IVP (09:31)
[2023-01-02 14:25] VITALS: BP 108/74; PULSE 92; RESP 16; TEMP 36.4; O2SAT 95
[2023-01-09 08:07] VITALS: BP 121/86; PULSE 126; RESP 16; TEMP 36.8; O2SAT 95
[2023-01-09 08:41] LABS: Basophils % 0.2 %; Eosinophils # 0.2 10^3/uL (0.0-0.8); Eosinophils % 1.2 %; Hematocrit 37.9 % (42.0-52.0); Hemoglobin 12.4 g/dL (11.7-16.6); Lymphocytes % 8.2 %; Mean Corpuscular HGB Conc 32.7 g/dL (30.0-36.0); Mean Corpuscular Hemoglobin 27.6 pg (28.0-34.0); Mean Corpuscular Volume 84.2 fl (80-94); Mean Platelet Volume 9.4 fL (7.4-10.4); Monocytes # 1.9 10^3/uL (0.2-0.9); Monocytes % 15.6 %; Neutrophils # 9.07 10^3/uL (1.8-7.7); Neutrophils % 74.1 %; Nucleated Red Blood Cells % 0 %; Platelet Count 453 10^3/cmm (130-400); Red Cell Distribution Width 13.9 % (12.1-15.1); White Blood Count 12.3 10^3/uL (4.0-10.0)
[2023-01-09 08:53] LABS: Alanine Aminotransferase 10 U/L (0-41); Alkaline Phosphatase 78 U/L (40-130); Aspartate Amino Transferase 23 U/L (0-40); Chloride 99 mmol/L (98-107); Potassium 4.2 mmol/L (3.5-5.1)
[2023-01-09 09:39] LABS: Blood Urea Nitrogen 9 mg/dL (8-23); Calcium 8.2 mg/dL (8.5-10.5); Carbon Dioxide 25 mmol/L (22-29); Glomerular Filtration Rate 167.4 mL/min (90-130); Total Bilirubin 0.4 mg/dL (0.15-1.2); Total Protein 6.4 g/dL (6.6-8.7)
[2023-01-09 09:41] LABS: Albumin Level 2.7 g/dL (3.5-5.2); Globulin 3.7 g/dL (1.3-4.6)
[2023-01-09 09:42] LABS: Anion Gap 15.2 (5-19); Sodium 135 mmol/L (136-145)
[2023-01-09 09:51] LABS: Glucose 112 mg/dL (65-115); Osmolality Calculated 279 mOsm/kg (285-295)
== END 2023-01-13 23:59 | disposition home or self-care (01) ==
PROVIDERS: Internal Medicine Medical Oncology; PCP Family Medicine; Visit Provider Nurse Practitioner Family
DX: C18.7 Malignant neoplasm of sigmoid colon (principal)
CPT/HCPCS: 74019; 80053; 82378; 85025; 96366; 96367; 96375; 96413; 96415; J1100; J2469; J7060; J9263

== ENCOUNTER → 2023-01-17 11:22 | Day surgery (SDC) | payer BC, SELFPAY ==
[2023-01-16 09:26] VITALS: BMI 34.8
[2023-01-17 11:35] VITALS: BP 106/86; PULSE 110; RESP 16; TEMP 36.1; O2SAT 95
--- NOTE | 2023-01-17 11:46 | US_ITS ---
WS: [id number] ULTRASOUND-GUIDED PARACENTESIS CLINICAL INFORMATION: abdominal distention COMPARISON: None. Procedure Informed consent: The risks, benefits, and alternatives of the procedure were discussed with the tino ent. Verbal and written consent was obtained. Timeout: A timeout was performed to confirm the correct patient, procedure, and site. Preparation: A suitable skin site was identified. The patient was prepped and draped in usual sterile fashion. Lidocaine 1% was used for local anesthesia. Catheter: 4 [place] One-step Yueh catheter. Side: LEFT Lower quadrant. Fluid Volume: 5000 ml Color: Clear yellow DISPOSITION: Discarded safely. Complications: None. Patient disposition: Discharged from the department in stable condition. US/US paracentesis abd w [id number] IMPRESSION: Uncomplicated ultrasound-guided paracentesis. Removal of 5000 cc
== END ==
PROVIDERS: Radiology Neuroradiology; PCP Family Medicine; Visit Provider Internal Medicine Medical Oncology
PROC: (CPT 49082; principal; 2023-01-17 12:45)
DX: R14.0 Abdominal distension (gaseous) (principal)
CPT/HCPCS: 49083

== ENCOUNTER 2023-01-30 08:00 | Oncology outpatient (recurring) (ONCR) | payer BC, SELFPAY ==
[2023-01-16 08:52] VITALS: BMI 34.8
[2023-01-16 08:53] VITALS: BP 109/81; PULSE 110; RESP 16; TEMP 36.7; O2SAT 96
[2023-01-16 09:01] LABS: Basophils # 0.1 10^3/uL (0.0-0.1); Basophils % 0.5 %; Eosinophils # 0.1 10^3/uL (0.0-0.8); Eosinophils % 0.6 %; Hematocrit 38.9 % (42.0-52.0); Hemoglobin 12.7 g/dL (11.7-16.6); Mean Corpuscular HGB Conc 32.6 g/dL (30.0-36.0); Mean Corpuscular Hemoglobin 27.7 pg (28.0-34.0); Mean Corpuscular Volume 84.7 fl (80-94); Mean Platelet Volume 9.3 fL (7.4-10.4); Monocytes # 1.5 10^3/uL (0.2-0.9); Neutrophils # 8.13 10^3/uL (1.8-7.7); Neutrophils % 75.5 %; Nucleated Red Blood Cells % 0 %; Platelet Count 527 10^3/cmm (130-400); Red Blood Count 4.59 10^6/uL (4.1-5.3); White Blood Count 10.8 10^3/uL (4.0-10.0)
[2023-01-16 09:20] LABS: Alanine Aminotransferase 6 U/L (0-41); Albumin Level 2.6 g/dL (3.5-5.2); Alkaline Phosphatase 93 U/L (40-130); Anion Gap 17.3 (5-19); Aspartate Amino Transferase 12 U/L (0-40); Blood Urea Nitrogen 11 mg/dL (8-23); Calcium 8.7 mg/dL (8.5-10.5); Carbon Dioxide 25 mmol/L (22-29); Chloride 100 mmol/L (98-107); Globulin 3.7 g/dL (1.3-4.6); Glomerular Filtration Rate 167.4 mL/min (90-130); Glucose 107 mg/dL (65-115); Osmolality Calculated 286 mOsm/kg (285-295); Potassium 4.3 mmol/L (3.5-5.1); Sodium 138 mmol/L (136-145); Total Bilirubin 0.4 mg/dL (0.15-1.2); Total Protein 6.3 g/dL (6.6-8.7)
[2023-01-23 13:07] VITALS: BP 109/79; PULSE 86; RESP 16; TEMP 36.4; O2SAT 96
[2023-01-23] MEDS: sodium chloride 0.9% 1,000 ML 999 ML IV (13:21)
[2023-01-30 08:56] LABS: Basophils % 0.4 %; Eosinophils # 0.1 10^3/uL (0.0-0.8); Eosinophils % 0.5 %; Hematocrit 40.1 % (42.0-52.0); Hemoglobin 12.8 g/dL (11.7-16.6); Lymphocytes # 0.9 10^3/uL (0.8-4.8); Lymphocytes % 7.9 %; Mean Corpuscular HGB Conc 31.9 g/dL (30.0-36.0); Mean Corpuscular Hemoglobin 27.8 pg (28.0-34.0); Mean Platelet Volume 9.4 fL (7.4-10.4); Monocytes # 1.2 10^3/uL (0.2-0.9); Neutrophils # 8.76 10^3/uL (1.8-7.7); Neutrophils % 79.7 %; Nucleated Red Blood Cells % 0 %; Platelet Count 417 10^3/cmm (130-400); Red Blood Count 4.61 10^6/uL (4.1-5.3); Red Cell Distribution Width 18.5 % (12.1-15.1)
[2023-01-30 09:35] LABS: Carcinoembryonic Antigen 166.6 ng/mL (0.0-4.7)
[2023-01-30 09:46] LABS: Alanine Aminotransferase 6 U/L (0-41); Albumin Level 2.3 g/dL (3.5-5.2); Alkaline Phosphatase 102 U/L (40-130); Anion Gap 15.8 (5-19); Aspartate Amino Transferase 14 U/L (0-40); Blood Urea Nitrogen 8 mg/dL (8-23); Calcium 8.5 mg/dL (8.5-10.5); Carbon Dioxide 26 mmol/L (22-29); Chloride 96 mmol/L (98-107); Globulin 4.1 g/dL (1.3-4.6); Glomerular Filtration Rate 167.4 mL/min (90-130); Glucose 113 mg/dL (65-115); Osmolality Calculated 277 mOsm/kg (285-295); Potassium 3.8 mmol/L (3.5-5.1); Sodium 134 mmol/L (136-145); Total Bilirubin 0.6 mg/dL (0.15-1.2); Total Protein 6.4 g/dL (6.6-8.7)
[2023-01-30] MEDS: sodium chloride 0.9% (100 ml) 200 ML 50 ML (09:50)
[2023-01-30] MEDS: BEVACIZUMAB AWWB IV (09:52)
[2023-01-30] MEDS: SODIUM CHLORIDE 0.9% IV (09:52)
[2023-01-30 10:26] LABS: Bilirubin Urine 1+ (Negative); Blood Urine Neg (Negative); Glucose Urine UA Norm (Normal); Ketones Urine Negative (Negative); Leukocyte Esterase Urine Negative (Negative); Nitrate Urine Negative (Negative); Protein Urine Neg (Negative); Specific Gravity, Urine 1.025 (1.005-1.030); Urine Appearance Clear (CLEAR); Urine Color Dark Yellow (Yellow); Urobilinogen Urine 1 mg/dL (Negative); pH Urine 5 (5-7)
[2023-01-30 10:27] LABS: Bacteria Urine TRACE /hpf; Mucus Urine 1+ /hpf; RBC Urine RARE /hpf (0-2); WBC Urine 0-4 /hpf (0-5)
[2023-01-30 11:08] VITALS: BP 102/69; PULSE 93; RESP 16; TEMP 36.3; O2SAT 94
== END 2023-02-13 23:59 | disposition home or self-care (01) ==
PROVIDERS: Internal Medicine Medical Oncology; PCP Family Medicine; Visit Provider Nurse Practitioner Family
DX: Z51.11 Encounter for antineoplastic chemotherapy (principal); C18.7 Malignant neoplasm of sigmoid colon
CPT/HCPCS: 80053; 81001; 82378; 85025; 96361; 96413; J1642; J7030; Q5107

== ENCOUNTER 2023-02-12 08:57 | Emergency (ER) | payer BC, SELFPAY ==
[2023-02-12 09:03] VITALS: BP 104/79; PULSE 105; RESP 18; TEMP 36.4; O2SAT 95; BMI 32.6
--- NOTE | 2023-02-12 09:18 | XR_ITS ---
WS: [id number] Exam: XR chest 1V portable [id number] Date/Time of Exam: 02/12/2023 9:20 AM Reason For Exam: shortness of breath Comparison 11/24/2022. Areas of plaque atelectasis in both bases. Small left basal pleural effusion noted. Normal cardiomedi astinal silhouette. Left subclavian port ends in the lower one third of the SVC. Regional bony elemen ts are intact. XR/XR chest 1V portable [id number] IMPRESSION: 1. Small left basal pleural effusion. 2. Mild bibasal plaque atelectasis. No acute infiltrates noted.
--- NOTE | 2023-02-12 09:31 | W.ED.WEAKNES ---
HPI - Weakness General: Chief complaint: Weakness Stated complaint: weakness Time Seen by Provider: 02/12/23 09:07 History of Present Illness: Patient presents to the ER with complaints of weakness, balance issues, mild shortness of breath when walking. This been going on for about 5 days. Patient does see Dr. Brar and is on oral chemotherapy for colon cancer. MD Complaint: generalized weakness and lack of energy Onset (ago): day(s) (Worsening 5 days ago be been going on since starting chemotherapy) Duration: constant Location: generalized Severity: mild Relieving factors: none Exacerbating factors: none Associated symptoms: Reports nausea, short of breath and vomiting Review of Systems General: Reports: 10 or more systems reviewed and unremarkable except in HPI and below GI: Reports: nausea and vomiting PFSH ED PFSH: Medical History Colon cancer History of angina in association with infusional 5-FU chemotherapy Surgical History History of colonoscopy 04/2022 with evidence of recurrence at anastomosis History of partial surgical removal of colon (03/08/21) low anterior resection for sigmoid colon cancer Port-A-Cath in place S/P laparoscopy (12/06/21) Diagnostic laparoscopy with omental biopsy Family History Other Cancer Diabetes Denies family history of CAD (coronary artery disease) Clotting disorder Dementia Hyperlipidemia Psychiatric illness Chronic kidney disease (CKD) Suicide Anesthesia complication Bleeding disorder Lung disease Hypertension Stroke Social History Smoking and tobacco status: former smoker Alcohol intake: current Alcohol intake frequency: few times a month Alcohol type: beer Physical Exam Const: COMMON NORMALS: no acute distress, average body habitus, patient oriented x3, no limitations, healthy appearing, alert and well nourished HENMT: COMMON NORMALS: normocephalic, atraumatic, hearing grossly normal bilaterally, external ears normal, Normal external nose present and moist oral mucous membranes HEAD & SCALP: normocephalic and atraumatic NOSE: Normal external nose present EXTERNAL EAR: Yes external ears normal Eye: COMMON NORMALS: Equal, round and reactive pupils present, EOMs intact bilaterally and no scleral icterus PUPIL: Yes Equal, round and reactive pupils present Neck/C-Spine: COMMON NORMALS: full ROM, no lymphadenopathy, supple, no meningeal signs, no JVD and Thyroid normal THYROID: Thyroid normal Chest: COMMONS NORMALS: normal inspection of the chest and normal palpation of entire chest wall Resp: COMMON NORMALS: normal respiratory effort, No retractions, No use of accessory muscles and clear to auscultation bilaterally AUSCULTATION: clear to auscultation bilaterally Cardio: COMMON NORMALS: no JVD, regular rate, regular rhythm, S1 normal heart sound present, S2 normal heart sound present, No gallops present (Cardio), No clicks present (Cardio), No murmurs present (Cardio) and No rub (Cardio) RATE: regular rate RHYTHM: regular rhythm HEART SOUNDS: S1 normal heart sound present and S2 normal heart sound present GI: COMMON NORMALS: Normal to inspection, nondistended, normoactive bowel sounds present, Soft to palpation, non-tender, No hepatosplenomegaly present and no masses PALPATION: Yes Soft to palpation and Yes No hepatosplenomegaly present Neuro: COMMON NORMALS: patient oriented x3 SENSORIUM/ORIENTATION: Yes alert MENINGEAL SIGNS: Yes no meningeal signs Course Vital Signs: Vital signs: Vital Signs Temperature 97.6 F 02/12/23 09:03 Pulse Rate 102 H 02/12/23 11:21 Respiratory Rate 18 02/12/23 09:03 Blood Pressure 112/69 02/12/23 11:21 Pulse Oximetry 96 02/12/23 11:21 Oxygen Delivery Me thod Room Air 02/12/23 09:03 MDM - Weakness Medical Decision Making Patient presents to the ER for generalized weakness and shortness of breath. Patient is on chemotherapy for colon cancer currently. Physical exam was performed lab work and imaging was obtained lab work was benign, chest x-ray showed small left basal pleural effusion, mild bibasilar atelectasis no infiltrate. Patient may have been mildly dehydrated as he he required a full liter of fluid before he is able to urinate. Patient is feeling better after the fluid. Patient be discharged home to follow-up with Dr. Brar for further work-up and treatment. These findings were discussed with the patient and family and they are comfortable with this decision Differential Diagnosis Unlikely acute myocardial infarction, anemia, hypothyroidism, rhabdomyolysis, sepsis or dehydration Medical Records I reviewed the patient's medical records. Lab Data I reviewed the patient's lab results. 02/12/23 09:43 02/12/23 09:43 Radiology Impressions Chest X-Ray 02/12/23 09:18 IMPRESSION: 1. Small left basal pleural effusion. 2. Mild bibasal plaque atelectasis. No acute infiltrates noted. Laboratory Results WBC 8.1 10^3/uL (4.0-10.0) 02/12/23 09:43 RBC 5.00 10^6/uL (4.1-5.3) 02/12/23 09:43 Hgb 14.1 g/dL (11.7-16.6) 02/12/23 09:43 Hct 44.3 % (42.0-52.0) 02/12/23 09:43 MCV 88.6 fl (80-94) 02/12/23 09:43 MCH 28.2 pg (28.0-34.0) 02/12/23 09:43 MCHC 31.8 g/dL (30.0-36.0) 02/12/23 09:43 RDW 21.2 % (12.1-15.1) H 02/12/23 09:43 Plt Count 423 10^3/cmm (130-400) H 02/12/23 09:43 MPV 9.1 fL (7.4-10.4) 02/12/23 09:43 Neut % (Auto) 71.4 % 02/12/23 09:43 Lymph % (Auto) 14.4 % 02/12/23 09:43 [place] % (Auto) 12.3 % 02/12/23 09:43 Eos % (Auto) 1.1 % 02/12/23 09:43 Baso % (Auto) 0.4 % 02/12/23 09:43 Neut # (Auto) 5.82 10^3/uL (1.8-7.7) 02/12/23 09:43 Lymph # (Auto) 1.2 10^3/uL (0.8-4.8) 02/12/23 09:43 Bacon # (Auto) 1.0 10^3/uL (0.2-0.9) H 02/12/23 09:43 Eos # (Auto) 0.1 10^3/uL (0.0-0.8) 02/12/23 09:43 Baso # (Auto) 0.0 10^3/uL (0.0-0.1) 02/12/23 09:43 Nucleated RBC % (auto) 0 % 02/12/23 09:43 Nucleated RBCs # 0.0 /100WBC 02/12/23 09:43 Sodium 137 mmol/L (136-145) 02/12/23 09:43 Potassium 4.3 mmol/L (3.5-5.1) 02/12/23 09:43 Chloride 101 mmol/L (98-107) 02/12/23 09:43 Carbon Dioxide 25 mmol/L (22-29) 02/12/23 09:43 Anion Gap 15.3 (5-19) 02/12/23 09:43 BUN 8 mg/dL (8-23) 02/12/23 09:43 Creatinine 0.5 mg/dL (0.7-1.2) L 02/12/23 09:43 GFR Calculation 167.4 mL/min (90-130) H 02/12/23 09:43 Glucose 105 mg/dL (65-115) 02/12/23 09:43 Calculated Osmolality 283 mOsm/kg (285-295) L 02/12/23 09:43 Calcium 8.6 mg/dL (8.5-10.5) 02/12/23 09:43 Magnesium 2.2 mg/dL (1.7-2.3) 02/12/23 09:43 Total Bilirubin 0.5 mg/dL (0.15-1.2) 02/12/23 09:43 AST 18 U/L (0-40) 02/12/23 09:43 ALT 7 U/L (0-41) 02/12/23 09:43 Alkaline Phosphatase 112 U/L (40-130) 02/12/23 09:43 Total Protein 7.1 g/dL (6.6-8.7) 02/12/23 09:43 Albumin 3.2 g/dL (3.5-5.2) L 02/12/23 09:43 Globulin 3.9 g/dL (1.3-4.6) 02/12/23 09:43 Urine Color Yellow (Yellow) 02/12/23 12:19 Urine Appearance Clear (CLEAR) 02/12/23 12:19 Urine pH 5 (5-7) 02/12/23 12:19 Ur Specific [place] 1.020 (1.005-1.030) 02/12/23 12:19 Urine Protein Trace (Negative) 02/12/23 12:19 Urine Glucose (UA) Norm (Normal) 02/12/23 12:19 Urine Ketones Negative (Negative) 02/12/23 12:19 Urine Blood Neg (Negative) 02/12/23 12:19 Urine Nitrate Negative (Negative) 02/12/23 12:19 Urine Bilirubin 1+ (Negative) H 02/12/23 12:19 Urine Urobilinogen 4 mg/dL (Negative) H 02/12/23 12:19 Ur Leukocyte Esterase Negative (Negative) 02/12/23 12:19 Urine RBC 0-4 /hpf (0-2) H 02/12/23 12:19 Urine WBC 0-4 /hpf (0-5) H 02/12/23 12:19 Ur Squamous Epith Cells 0-4 /hpf (0-5) H 02/12/23 12:19 Amorphous Sediment Not Reportable 02/12/23 12:19 Urine Bacteria Trace /hpf (NONE) 02/12/23 12:19 Urine Mucus 3+ /hpf 02/12/23 12:19 Discharge Plan Discharge Patient Disposition: Home Clinical Impression: Generalized weakness Condition: Stable Prescriptions: No Action diphenoxylate-atropine [Lomotil] 2.5-0.025 mg tablet 2 tab PO BID PRN (Reason: diarrhea) Qty: 60 3RF prochlorperazine maleate [Compazine] 10 mg tablet 10 mg PO Q4H PRN (Reason: Nausea) polyethylene glycol 3350 [Miralax] 17 gram/dose powder 17 g PO DAILY PRN (Reason: Constipation) sennosides-docusate sodium [Senna-S] 8.6-50 mg tablet 1 tab-cap PO DAILY PRN (Reason: Constipation) dronabinol 10 mg capsule 10 mg PO QID Qty: 120 2RF alprazolam 1 mg tablet 1 mg PO TID PRN (Reason: anxiety) Qty: 90 0RF capecitabine 500 mg tablet See Rx Instructions .ROUTE .COMPLEX Rx Instructions: Medication on hold as of 02/05/23 per Xeloda -1,500mg (3 tabs) po bid- Take for 14 days per 21-day cycle; must administer with water 30 minutes after a mealTake first dose evening of day 1 and last dose morning of day 15 acetaminophen 325 mg tablet 650 mg PO Q4H PRN (Reason: Pain) cholecalciferol (vitamin D3) [Vitamin D3] 50 mcg (2,000 unit) Capsule 100 mcg PO DIRECTED Vitamin C 500 mg Tablet 500 - 1,000 mg PO DIRECTED Advil 200 mg Tablet 400 mg PO Q6H PRN (Reason: Pain) citalopram 20 mg tablet 20 mg PO DAILY PRN (Reason: mood) ondansetron 4 mg tablet,disintegrating 4 - 8 mg PO Q8H PRN (Reason: nausea and vomiting) esomeprazole magnesium [Nexium] 20 mg Capsule,Delayed Release(Dr/Ec) 20 mg PO DAILY Discharge Orders: Discharge ED (Routine); Ordered 02/12/23 Ordered By: Tommy Bethea Referrals: Mason Adams MD [Primary Care Provider] - 1 week Patient Instructions: Weakness (Generalized) Activity Restrictions/Additional Instructions: Please keep your appointment for the MRI that was previously scheduled. Please follow-up with Dr. Brar for further evaluation and treatment. Return to the ER if your symptoms return and/or worsen. Coding Level of Care Code ED Plug Making Operator for Hany Hager
[2023-02-12 09:50] LABS: Basophils % 0.4 %; Eosinophils # 0.1 10^3/uL (0.0-0.8); Eosinophils % 1.1 %; Hematocrit 44.3 % (42.0-52.0); Hemoglobin 14.1 g/dL (11.7-16.6); Lymphocytes # 1.2 10^3/uL (0.8-4.8); Lymphocytes % 14.4 %; Mean Corpuscular HGB Conc 31.8 g/dL (30.0-36.0); Mean Corpuscular Hemoglobin 28.2 pg (28.0-34.0); Mean Corpuscular Volume 88.6 fl (80-94); Mean Platelet Volume 9.1 fL (7.4-10.4); Monocytes % 12.3 %; Neutrophils # 5.82 10^3/uL (1.8-7.7); Neutrophils % 71.4 %; Nucleated Red Blood Cells % 0 %; Platelet Count 423 10^3/cmm (130-400); Red Cell Distribution Width 21.2 % (12.1-15.1); White Blood Count 8.1 10^3/uL (4.0-10.0)
[2023-02-12 09:53] VITALS: BP 95/56; PULSE 94; O2SAT 95
[2023-02-12 10:14] LABS: Alanine Aminotransferase 7 U/L (0-41); Albumin Level 3.2 g/dL (3.5-5.2); Alkaline Phosphatase 112 U/L (40-130); Aspartate Amino Transferase 18 U/L (0-40); Blood Urea Nitrogen 8 mg/dL (8-23); Calcium 8.6 mg/dL (8.5-10.5); Carbon Dioxide 25 mmol/L (22-29); Chloride 101 mmol/L (98-107); Globulin 3.9 g/dL (1.3-4.6); Glomerular Filtration Rate 167.4 mL/min (90-130); Glucose 105 mg/dL (65-115); Magnesium 2.2 mg/dL (1.7-2.3); Osmolality Calculated 283 mOsm/kg (285-295); Sodium 137 mmol/L (136-145); Total Bilirubin 0.5 mg/dL (0.15-1.2); Total Protein 7.1 g/dL (6.6-8.7)
[2023-02-12 10:15] LABS: Anion Gap 15.3 (5-19); Potassium 4.3 mmol/L (3.5-5.1)
[2023-02-12 10:33] VITALS: BP 143/71; PULSE 89; O2SAT 94
--- NOTE | 2023-02-12 10:36 | PC.PHAR ---
pt and pts verified pts medications-pts states xeloda was put on hold 02/05/23-rx filled for 2000mg bid for 14 days per 21 day cycle pts states the dr decreased to 1500mg bid and then put med on hold on 02/05/23 pts states the last took on 02/04/23-
[2023-02-12 11:21] VITALS: BP 112/69; PULSE 102; O2SAT 96
[2023-02-12] MEDS: sodium chloride 0.9% 1,000 ML 999 ML IV (11:26)
[2023-02-12 12:39] LABS: Glucose Urine UA Norm (Normal); Protein Urine Trace (Negative); Urine Appearance Clear (CLEAR); Urine Color Yellow (Yellow); pH Urine 5 (5-7)
[2023-02-12 12:40] LABS: Add Urine Culture? No; Add Urine Microscopic? YES; Bacteria Urine TRACE /hpf; Bilirubin Urine 1+ (Negative); Blood Urine Neg (Negative); Ketones Urine Negative (Negative); Leukocyte Esterase Urine Negative (Negative); Mucus Urine 3+ /hpf; Nitrate Urine Negative (Negative); RBC Urine 0-4 /hpf (0-2); Squamous Epithelial Cell Urine 0-4 /hpf (0-5); Urobilinogen Urine 4 mg/dL (Negative); WBC Urine 0-4 /hpf (0-5)
[2023-02-12 13:20] VITALS: BP 100/74; PULSE 109; O2SAT 94
== END 2023-02-12 13:22 | disposition home or self-care (01) ==
PROVIDERS: Emergency Provider Emergency Medicine; PCP Family Medicine
DX: R53.1 Weakness (principal); C18.9 Malignant neoplasm of colon, unspecified; Z79.899 Other long term (current) drug therapy
CPT/HCPCS: 71045; 80053; 81001; 83735; 85025; 96360; 96361; 99284; J7030

== ENCOUNTER 2023-02-13 11:02 | Outpatient (CLI) | payer BC, SELFPAY ==
--- NOTE | 2023-02-13 11:45 | MR_ITS ---
WS: [id number] MRI HEAD WITH CONTRAST TECHNIQUE: Sagittal T1, T2 axial, T2 axial FLAIR, axial susceptibility weighted imaging, axial diffus ion weighted images, and coronal T2 images were obtained. Pre and post-T1 axial and post T1 coronal i mages. ADC and FSPGR images. CLINICAL INFORMATION: dysequilibrium COMPARISON: None. FINDINGS: No evidence of restricted diffusion to suggest acute ischemia. Ventricular system and basal cisterns are patent. Minimal small vessel changes. Moderate parenchymal volume loss. Normal posterior fossa. N ormal vascular flow voids at the skull base. No extra-axial fluid collections. No evidence of mass or mass effect. Trace fluid LEFT maxillary sinus. Paranasal sinuses are well aerated. Mastoid air cells well aerated. Normal posterior nasopharynx and parapharyngeal fat. Normal optic chiasm and pituitary infundibulum. Mild symmetric atrophy temporal lobes and hippocampal formations. No hemosiderin on susceptibly weig hted images. No evidence of enhancing intracranial metastatic disease. Normal dural venous sinuses. MR/MR head wo/w con [id number] IMPRESSION: 1. No evidence of enhancing intracranial metastatic disease. 2. No restricted diffusion to suggest acute ischemia. 3. No suspicious intracranial signal abnormalities. 4. Moderate parenchymal volume loss.
[2023-02-13] MEDS: gadobenate dimeglumine 20 mL vial IV (12:02)
== END 2023-02-13 11:03 | disposition home or self-care (01) ==
PROVIDERS: PCP Family Medicine; Visit Provider Internal Medicine Medical Oncology
DX: R42 Dizziness and giddiness (principal)
CPT/HCPCS: 70553; A9577

== ENCOUNTER 2023-02-27 07:30 | Oncology outpatient (recurring) (ONCR) | payer BC, SELFPAY ==
[2023-02-20 08:26] LABS: Basophils # 0.1 10^3/uL (0.0-0.1); Basophils % 0.7 %; Eosinophils # 0.1 10^3/uL (0.0-0.8); Eosinophils % 0.6 %; Hematocrit 43.1 % (42.0-52.0); Hemoglobin 13.8 g/dL (11.7-16.6); Lymphocytes # 0.8 10^3/uL (0.8-4.8); Lymphocytes % 9.4 %; Mean Corpuscular Hemoglobin 28.5 pg (28.0-34.0); Mean Corpuscular Volume 88.9 fl (80-94); Mean Platelet Volume 8.8 fL (7.4-10.4); Monocytes # 0.9 10^3/uL (0.2-0.9); Monocytes % 10.5 %; Neutrophils # 6.73 10^3/uL (1.8-7.7); Neutrophils % 78.5 %; Nucleated Red Blood Cells % 0 %; Platelet Count 535 10^3/cmm (130-400); Red Blood Count 4.85 10^6/uL (4.1-5.3); Red Cell Distribution Width 20.7 % (12.1-15.1); White Blood Count 8.6 10^3/uL (4.0-10.0)
[2023-02-20 08:56] LABS: Carcinoembryonic Antigen 127.4 ng/mL (0.0-4.7)
[2023-02-20 09:08] LABS: Alanine Aminotransferase 8 U/L (0-41); Albumin Level 2.8 g/dL (3.5-5.2); Alkaline Phosphatase 117 U/L (40-130); Anion Gap 15.3 (5-19); Aspartate Amino Transferase 14 U/L (0-40); Blood Urea Nitrogen 7 mg/dL (8-23); Calcium 8.8 mg/dL (8.5-10.5); Carbon Dioxide 26 mmol/L (22-29); Chloride 100 mmol/L (98-107); Globulin 4.3 g/dL (1.3-4.6); Glomerular Filtration Rate 167.4 mL/min (90-130); Glucose 114 mg/dL (65-115); Osmolality Calculated 283 mOsm/kg (285-295); Potassium 4.3 mmol/L (3.5-5.1); Sodium 137 mmol/L (136-145); Total Bilirubin 0.8 mg/dL (0.15-1.2); Total Protein 7.1 g/dL (6.6-8.7)
[2023-02-27 07:30] VITALS: BP 112/76; PULSE 109; RESP 18; TEMP 36.1; O2SAT 95
[2023-02-27 07:47] LABS: Basophils # 0.1 10^3/uL (0.0-0.1); Basophils % 0.8 %; Eosinophils # 0.1 10^3/uL (0.0-0.8); Eosinophils % 0.6 %; Lymphocytes # 0.7 10^3/uL (0.8-4.8); Lymphocytes % 8.6 %; Mean Corpuscular HGB Conc 32.6 g/dL (30.0-36.0); Mean Corpuscular Hemoglobin 28.9 pg (28.0-34.0); Mean Corpuscular Volume 88.8 fl (80-94); Monocytes # 0.9 10^3/uL (0.2-0.9); Monocytes % 10.6 %; Neutrophils % 79.1 %; Nucleated Red Blood Cells % 0 %; Platelet Count 588 10^3/cmm (130-400); Red Blood Count 4.84 10^6/uL (4.1-5.3); Red Cell Distribution Width 19.1 % (12.1-15.1); White Blood Count 8.6 10^3/uL (4.0-10.0)
[2023-02-27 08:13] LABS: Carcinoembryonic Antigen 109.1 ng/mL (0.0-4.7)
[2023-02-27 08:24] LABS: Alanine Aminotransferase 6 U/L (0-41); Albumin Level 2.9 g/dL (3.5-5.2); Alkaline Phosphatase 116 U/L (40-130); Aspartate Amino Transferase 14 U/L (0-40); Blood Urea Nitrogen 9 mg/dL (8-23); Calcium 8.7 mg/dL (8.5-10.5); Carbon Dioxide 24 mmol/L (22-29); Chloride 96 mmol/L (98-107); Glomerular Filtration Rate 216.6 mL/min (90-130); Glucose 104 mg/dL (65-115); Osmolality Calculated 275 mOsm/kg (285-295); Sodium 133 mmol/L (136-145); Total Bilirubin 0.8 mg/dL (0.15-1.2); Total Protein 6.9 g/dL (6.6-8.7)
[2023-02-27] MEDS: palonosetron 0.25 mg/5 mL SDV IVP (09:39)
[2023-02-27] MEDS: sodium chloride 0.9% 250 ML 75 ML IV (09:39)
[2023-02-27] MEDS: dextrose 5% 250 ML 100 ML IV (10:53)
[2023-02-27 13:21] LABS: Vitamin B12 348 pg/mL (232-1245)
[2023-02-27 14:00] VITALS: BP 120/86; PULSE 78; RESP 16; TEMP 36.3; O2SAT 96
== END 2023-03-15 23:59 | disposition home or self-care (01) ==
PROVIDERS: Internal Medicine Medical Oncology; PCP Family Medicine; Visit Provider Nurse Practitioner Family
DX: Z51.11 Encounter for antineoplastic chemotherapy (principal); C18.7 Malignant neoplasm of sigmoid colon; D64.9 Anemia, unspecified
CPT/HCPCS: 80053; 82378; 82607; 85025; 96375; 96413; 96415; 96417; J1642; J2469; J7050; J7060; J9263; Q5107

== ENCOUNTER 2023-04-04 16:12 | Outpatient (CLI) | payer BC, SELFPAY ==
[2023-04-04] MEDS: iohexol 350 mg/mL 500 mL Btl (per mL) IV (16:39)
--- NOTE | 2023-04-04 17:00 | CT_ITS ---
WS: [id number] CTA OF THE CHEST WITH PULMONARY EMBOLISM PROTOCOL TECHNIQUE: High-resolution contrast enhanced CTA of the chest with coronal and sagittal reformatted i mages with pulmonary embolism protocol. MIP images are also reviewed. CLINICAL INFORMATION: SOB, chest pain. History of colon cancer. COMPARISON: CT chest abdomen pelvis October 09, 2022 DLP: 393.[address] scans at [facility] use at least one of these dose optimization techniques: automated e xposure control; mA and/or kV adjustment per patient size (includes targeted exams where dose is matc hed to clinical indication); or iterative reconstruction. FINDINGS: Thin bridging filling defect in the proximal main pulmonary arteries bridging the bifurcation compati ble with thin saddle embolus. Proximal main pulmonary arteries remain patent. Distal main pulmonary a rteries are patent. Numerous filling defects in the segmental and subsegmental pulmonary arteries machelle aterally compatible with moderate pulmonary embolus burden. LEFT ventricle is compressed by the large LEFT pleural effusion with LEFT to RIGHT mediastinal shift. No significant reflux into the hepatic veins to indicate RIGHT heart dysfunction. Large LEFT pleural effusion with compressive lung along the hilum. Moderate RIGHT pleural effusion. P leural effusions appear new since radiograph February 12, 2023. LEFT central venous catheter. Partially visualized small amount of upper abdominal ascites. Adrenal g lands are normal. Small esophageal hiatal hernia. Hazy groundglass infiltrate in RIGHT upper lobe per ipherally may represent infectious or inflammatory opacity or possibly pulmonary infarct. Compressive atelectasis RIGHT lower lobe. Moderate diffuse body wall anasarca. CT/CT angio chest PE protcl [id number] IMPRESSION: 1. Acute pulmonary embolus with multiple filling defects in the segmental and subsegmental pulmonary arteries bilaterally consistent with moderate embolus bu rden. 2. Thin bridging septated saddle embolus. Main pulmonary pulmonary arteries re main patent. 3. Large LEFT pleural effusion with compressive lung along the hilum. 4. Moderate RIGHT pleural effusion with compressive atelectasis RIGHT lower lo be. 5. Groundglass opacity RIGHT upper lobe may represent pulmonary infarct versus infectious or inflammatory opacity. 6. Small amount of ascites in the upper abdomen. Small esophageal hiatal herni a. 7. Large LEFT pleural effusion compressing the LEFT ventricle with LEFT to RIG HT mass effect on the heart and mediastinum. Discussed with Dr. Wes RANGEL at 04/04/2023 5:16 PM in the emergency room. Halima ent transferred to the emergency room for further assessment.
== END 2023-04-04 16:13 | disposition home or self-care (01) ==
PROVIDERS: PCP Family Medicine; Visit Provider Internal Medicine Medical Oncology
DX: I26.99 Other pulmonary embolism without acute cor pulmonale (principal); I26.94 Multiple subsegmental thrombotic pulmonary emboli without acute cor pulmonale; I26.92 Saddle embolus of pulmonary artery without acute cor pulmonale; J90 Pleural effusion, not elsewhere classified; J98.11 Atelectasis; R18.8 Other ascites; K44.9 Diaphragmatic hernia without obstruction or gangrene; R91.8 Other nonspecific abnormal finding of lung field; R06.02 Shortness of breath; R07.9 Chest pain, unspecified
CPT/HCPCS: 71275; Q9967

== ENCOUNTER 2023-04-04 17:17 | Inpatient (IN) | payer BC, SELFPAY ==
[2023-04-04 17:18] VITALS: BP 106/80; PULSE 114; RESP 18; TEMP 36.4; O2SAT 89; BMI 26.9
--- NOTE | 2023-04-04 17:28 | XRR_ITS ---
PROCEDURE INFORMATION: Exam: XR Chest Exam date and time: 04/04/2023 5:32 PM Age: 62 years old Clinical indication: Cough; Additional info: Dyspnea/cough TECHNIQUE: Imaging protocol: Radiologic exam of the chest. Views: 1 view. COMPARISON: CT angio chest PE protcl [id number] 04/04/2023 4:52 PM FINDINGS: Tubes, catheters and devices: Left chest port terminates mid SVC. Lungs: Left lung is mostly collapsed. No significant right lung abnormality. Pleural spaces: Large left pleural effusion. Negative pneumothorax. Right pleural effusion manifested by costophrenic angle blunting. Heart/Mediastinum: Unremarkable. No cardiomegaly. Bones/joints: Unremarkable. XR/XR chest 1V portable [id number] IMPRESSION: No change from comparison.
--- NOTE | 2023-04-04 17:28 | ECG_ITS ---
[facility] [place] [facility] Date: 2023-04-04 Pat Name: Aldair Buckley Department: Room: Gender: Male Therapeutic Radiologist: : 1960 Requested By: Ghanshyam Shrestha Order Number: [id number] Mariaulisa MD: Jesus Ashby M.D. Measurements Intervals [place] Rate: 125 P: -63 OR: 126 QRS: 29 QRSD: 90 T: 0 QT: 296 QTc: 427 Interpretive Statements JUNCTIONAL TACHYCARDIA SEPTAL MYOCARDIAL INFARCTION , PROBABLY OLD [40+ ms Q WAVE IN V1/V2] No previous ECG available for comparison Electronically Signed On 04-05-2023 11:41:37 CDT by Jesus Ashby M.D. [email or web address]
[2023-04-04 17:35] LABS: Basophils # 0.1 10^3/uL (0.0-0.1); Basophils % 0.6 %; Eosinophils # 0.1 10^3/uL (0.0-0.8); Eosinophils % 1.1 %; Hematocrit 52.2 % (42.0-52.0); Hemoglobin 16.7 g/dL (11.7-16.6); Lymphocytes # 1.2 10^3/uL (0.8-4.8); Mean Corpuscular Hemoglobin 29.2 pg (28.0-34.0); Mean Corpuscular Volume 91.4 fl (80-94); Mean Platelet Volume 9.4 fL (7.4-10.4); Monocytes # 1.4 10^3/uL (0.2-0.9); Monocytes % 11.3 %; Neutrophils # 9.19 10^3/uL (1.8-7.7); Neutrophils % 76.6 %; Nucleated Red Blood Cells % 0 %; Platelet Count 464 10^3/cmm (130-400); Red Blood Count 5.71 10^6/uL (4.1-5.3); Red Cell Distribution Width 16.3 % (12.1-15.1)
--- NOTE | 2023-04-04 17:36 | W.ED.SOB ---
HPI - SOB/Dyspnea General: Chief Complaint: Shortness of Breath/Dyspnea Stated Complaint: saddle PE Time Seen by Provider: 04/04/23 17:21 Source: patient Mode of arrival: ambulatory History of Present Illness: HPI Narrative: 62-year-old male presents emergency room complaining of chest discomfort and progressively worsening shortness of breath for last several weeks. Patient has a known history of colon cancer has had several recurrences had bowel resections and sigmoid stent he has had progressively worsening shortness of breath with exertion. Skin in the point is difficult for him even to move around in the house to do ADLs. He was evaluated today in radiology for an outpatient CTA and found to have moderate burden of clot with a thin septated saddle embolism but his main pulmonary arteries were still patent. Patient is tachycardic and hypoxic on arrival both of these improved with oxygen support he is requiring 3 L/min. MD elicited complaint: shortness of breath Onset (ago): week(s) Timing: constant Severity: severe Exacerbating factors: exertion Relieving factors: oxygen and rest Known history of: PE Associated symptoms: Reports cough; Deny abdominal pain, chest congestion, chest pain, diaphoresis, dizziness, extremity pain, fever(s), hemoptysis, lightheadedness, myalgias, nausea, orthopnea, palpitations, paresthesias, polydipsia, polyuria, rash, sense of impending doom, syncope or vomiting Treatment prior to arrival: none Review of Systems Const: Denies: fever(s) or diaphoresis ENMT: Denies: throat pain, ear or mastoid pain, nasal discharge or nasal congestion Card: Reports: dyspnea on exertion; Denies: chest pain, palpitations, irregular heart rhythm, edema, lightheadedness, syncope or orthopnea Resp: Reports: dyspnea; Denies: productive cough, non-productive cough, wheezing, hemoptysis or chest congestion GI: Denies: abdominal pain, nausea or vomiting : Denies: flank pain, dysuria, urinary frequency or urinary urgency Musc: Denies: neck pain, back pain or extremity pain Skin/Breast: Denies: rash or pruritus Neuro: Denies: dizziness Endo: Denies: polyuria or polydipsia PFSH ED PFSH: Medical History Colon cancer History of angina in association with infusional 5-FU chemotherapy Surgical History History of colonoscopy 04/2022 with evidence of recurrence at anastomosis History of partial surgical removal of colon (03/08/21) low anterior resection for sigmoid colon cancer Port-A-Cath in place S/P laparoscopy (12/06/21) Diagnostic laparoscopy with omental biopsy Family History Other Cancer Diabetes Denies family history of CAD (coronary artery disease) Clotting disorder Dementia Hyperlipidemia Psychiatric illness Chronic kidney disease (CKD) Suicide Anesthesia complication Bleeding disorder Lung disease Hypertension Stroke Social History Smoking and tobacco status: former smoker Alcohol intake: current Alcohol intake frequency: few times a month Alcohol type: beer Physical Exam Const: GENERAL APPEARANCE: cooperative ORIENTATION/CONSCIOUSNESS: Yes awake, Yes oriented to person, Yes oriented to place and Yes oriented to time HENMT: COMMON NORMALS: normocephalic, atraumatic and hearing grossly normal bilaterally HEAD & SCALP: normocephalic and atraumatic Resp: COMMON NORMALS: No retractions, No use of accessory muscles and clear to auscultation bilaterally EFFORT & INSPECTION: Yes tachypneic AUSCULTATION: clear to auscultation bilaterally Cardio: COMMON NORMALS: regular rhythm and No murmurs present (Cardio) RATE: tachycardic RHYTHM: regular rhythm GI: COMMON NORMALS: Soft to palpation and No hepatosplenomegaly present AUSCULTATION: Yes normoactive bowel sounds PALPATION: Yes Soft to palpation, No Tenderness to palpation present (GI), No Guarding due to palpation present (GI) and Yes No hepatosplenomegaly present Extremity: COMMON NORMALS: normal to inspection, capillary refill normal, no clubbing, cyanosis or edema, no calf tenderness and no pedal edema Neuro: SENSORIUM/ORIENTATION: Yes oriented to person, Yes oriented to place and Yes oriented to time Skin: COMMON NORMALS: no rashes or lesions noted GENERAL SKIN EXAM: no rashes or lesions noted Course Vital Signs: Vital signs: Vital Signs Temperature 97.6 F 04/04/23 17:18 Pulse Rate 114 H 04/04/23 17:18 Respiratory Rate 18 04/04/23 17:18 Blood Pressure 106/80 04/04/23 17:18 Pulse Oximetry 89 L 04/04/23 17:18 Oxygen Delivery Me thod Room Air 04/04/23 17:18 MDM - SOB/Dyspnea Medical Decision Making Initiate heparin. Echocardiogram. Will admit to CSU and consult Dr. Gu. Discussed Dr. South orders written Medical Records I reviewed the patient's medical records. Lab Data I reviewed the patient's lab results. 04/04/23 17:04/04/23 17: Labs/Radiology: Laboratory Results WBC 12.0 10^3/uL (4.0-10.0) H 04/04/23 17: RBC 5.71 10^6/uL (4.1-5.3) H 04/04/23 17: Hgb 16.7 g/dL (11.7-16.6) H 04/04/23 17: Hct 52.2 % (42.0-52.0) H 04/04/23 17: MCV 91.4 fl (80-94) 04/04/23 17: MCH 29.2 pg (28.0-34.0) 04/04/23 17: MCHC 32.0 g/dL (30.0-36.0) 04/04/23 17: RDW 16.3 % (12.1-15.1) H 04/04/23 17: Plt Count 464 10^3/cmm (130-400) H 04/04/23: MPV 9.4 fL (7.4-10.4) 04/04/23 17: Neut % (Auto) 76.6 % 04/04/23 17: Lymph % (Auto) 10.0 % 04/04/23: [place] % (Auto) 11.3 % 04/04/23: Eos % (Auto) 1.1 % 04/04/23: Baso % (Auto) 0.6 % 04/04/23: Neut # (Auto) 9.19 10^3/uL (1.8-7.7) H 04/04/23: Lymph # (Auto) 1.2 10^3/uL (0.8-4.8) 04/04/23 17:29 [place] # (Auto) 1.4 10^3/uL (0.2-0.9) H 04/04/23 17:29 Eos # (Auto) 0.1 10^3/uL (0.0-0.8) 04/04/23 17:29 Baso # (Auto) 0.1 10^3/uL (0.0-0.1) 04/04/23 17:29 Nucleated RBC % (auto) 0 % 04/04/23 17:29 Nucleated RBCs # 0.0 /100WBC 04/04/23 17:29 Discharge Plan Discharge Patient Disposition: Admitted As Inpatient Clinical Impression: Pulmonary embolism, Malignant neoplasm of sigmoid colon, 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 Condition: Stable Prescriptions: No Action sennosides-docusate sodium [Senna-S] 8.6-50 mg tablet 1 tab-cap PO DAILY PRN (Reason: Constipation) bevacizumab-awwb 25 mg/mL solution 730 mg IV Q21D Qty: 32 4RF citalopram 20 mg tablet 20 mg PO DAILY PRN (Reason: mood) Qty: 90 0RF dronabinol 10 mg capsule 10 mg PO QID Qty: 120 2RF prochlorperazine maleate [Compazine] 10 mg tablet 10 mg PO Q4H PRN (Reason: Nausea) Qty: 30 3RF capecitabine 500 mg tablet See Rx Instructions .ROUTE .COMPLEX Hold Instructions: Doctor's Order Rx Instructions: Medication on hold as of 02/05/23 per Xeloda -1,000mg (2 tabs) po bid- Take for 14 days per 21-day cycle; must administer with water 30 minutes after a mealTake first dose evening of day 1 and last dose morning of day 15 alprazolam 1 mg tablet 1 mg PO TID PRN (Reason: anxiety) Qty: 90 0RF ibuprofen [Advil] 200 mg Tablet 400 mg PO Q6H PRN (Reason: Pain) ondansetron 4 mg tablet,disintegrating 4 - 8 mg PO Q8H PRN (Reason: nausea and vomiting) esomeprazole magnesium [Nexium] 20 mg Capsule,Delayed Release(Dr/Ec) 20 mg PO DAILY Referrals: Mason Adams MD [Primary Care Provider] - Patient Instructions: Opioid Safety, Pain Management Coding Level of Care Code ED [employer] for [employer]
[2023-04-04 17:47] LABS: INR 1.21 (0.8-1.2)
[2023-04-04 17:48] LABS: Partial Thromboplastin Time 33.3 SECONDS (23.9-36.7)
[2023-04-04 17:52] LABS: Alanine Aminotransferase 6 U/L (0-41); Albumin Level 2.5 g/dL (3.5-5.2); Alkaline Phosphatase 129 U/L (40-130); Anion Gap 18.3 (5-19); Aspartate Amino Transferase 11 U/L (0-40); Blood Urea Nitrogen 12 mg/dL (8-23); Calcium 9.1 mg/dL (8.5-10.5); Carbon Dioxide 22 mmol/L (22-29); Chloride 97 mmol/L (98-107); Glomerular Filtration Rate 135.6 mL/min (90-130); Glucose 89 mg/dL (65-115); Osmolality Calculated 275 mOsm/kg (285-295); Potassium 4.3 mmol/L (3.5-5.1); Sodium 133 mmol/L (136-145); Total Bilirubin 0.7 mg/dL (0.15-1.2); Total Protein 6.5 g/dL (6.6-8.7)
--- NOTE | 2023-04-04 18:19 | P.HP_ITS ---
Providers/Chief Complaint Primary Care Provider: Mason Adams MD Chief Complaint: saddle PE History of Present Illness Aldair Buckley is a 62 year old male with past medical history of metastatic colon cancer came in today with chief complaint of worsening shortness of breath for last several weeks. Denied any fever cough, chest pain. CTA chest done: Has shown pulmonary embolism, as well as large LT -sided, pleural effusion, and moderate Right-sided pleural effusion, s/p left-sided thoracentesis, with removal of 2 L straw-colored fluid, pending pleural fluid analysis ,post thoracentesis chest x- ray has shown, Large left pneumothorax His other vitals and labs have been reviewed. Review of Systems General: Reports: 10 or more systems reviewed and unremarkable except in HPI and below Const: Denies: fever(s), chills, body aches, change in appetite or diaphoresis Card: Reports: dyspnea on exertion; Denies: palpitations, edema, swelling of feet/ankles, orthopnea or leg pain with exertion Resp: Reports: dyspnea; Denies: productive cough, wheezing or pain on inspiration GI: Denies: abdominal pain, nausea, vomiting, diarrhea or constipation : Denies: flank pain or difficulty urinating Musc: Denies: back pain, extremity pain or extremity swelling Neuro: Denies: headache(s), difficulty walking or confusion Medications/Allergies Home Medications Medication Instructions Recorded Confirmed Last Taken Type esomeprazole magnesium 20 mg 20 mg PO DAILY 01/16/23 03/26/23 03/26/23 History capsule,delayed release (Nexium) sennosides 8.6 mg-docusate sodium 1 tab-cap PO DAILY PRN Constipation 01/30/23 03/26/23 03/25/23 History 50 mg tablet (Senna-S) bevacizumab-awwb 25 mg/mL 730 mg (29.2 mL) IV Q21D #32 mL 02/12/23 03/26/23 01/28/23 Rx intravenous solution ibuprofen 200 mg tablet (Advil) 400 mg PO Q6H PRN Pain 02/12/23 03/26/23 03/26/23 History ondansetron 4 mg disintegrating 4 - 8 mg PO Q8H PRN nausea and 02/12/23 03/26/23 1 Year Ago History tablet vomiting ~03/26/22 citalopram 20 mg tablet 20 mg PO DAILY PRN mood #90 tabs 02/21/23 03/26/23 1 Month Ago Rx ~02/24/23 dronabinol 10 mg capsule 10 mg PO QID #120 caps 02/25/23 03/26/23 3 Weeks Ago Rx ~03/05/23 prochlorperazine maleate 10 mg 10 mg PO Q4H PRN Nausea #30 tabs 02/25/23 03/26/23 1 Month Ago Rx tablet (Compazine) ~02/24/23 capecitabine 500 mg tablet See Rx Instructions .Route .COMPLEX 03/18/23 03/26/23 2 Months Ago History ~01/24/23 alprazolam 1 mg tablet 1 mg PO TID PRN anxiety #90 tabs 03/25/23 03/26/23 0 03/26/23 Rx Allergies Allergy/AdvReac Type Severity Reaction Status Date / Time No Known Allergies Allergy Verified 03/18/23 08:40 PFSH Acute PFSH: Medical History Colon cancer History of angina in association with infusional 5-FU chemotherapy Surgical History History of colonoscopy 04/2022 with evidence of recurrence at anastomosis History of partial surgical removal of colon (03/08/21) low anterior resection for sigmoid colon cancer Port-A-Cath in place S/P laparoscopy (12/06/21) Diagnostic laparoscopy with omental biopsy Family History Other Cancer Diabetes Denies family history of CAD (coronary artery disease) Clotting disorder Dementia Hyperlipidemia Psychiatric illness Chronic kidney disease (CKD) Suicide Anesthesia complication Bleeding disorder Lung disease Hypertension Stroke Social History Smoking and tobacco status: former smoker Alcohol intake: current Alcohol intake frequency: few times a month Alcohol type: beer Vitals/I&O/Wt Last Vital Signs Temp 97.6 F 04/04/23 17:18 Pulse 114 H 04/04/23 17:18 Resp 18 04/04/23 17:18 BP 106/80 04/04/23 17:18 Pulse Ox 89 L 04/04/23 17:18 O2 Del Method Room Air 04/04/23 17:18 Weight last 48 hrs Weight 80.286 kg Physical Exam Const: COMMON NORMALS: patient oriented x3 HENMT: COMMON NORMALS: normocephalic and atraumatic HEAD & SCALP: normocephalic and atraumatic Resp: COMMON NORMALS: clear to auscultation bilaterally AUSCULTATION: clear to auscultation bilaterally OTHER: Diminished air entry in left lung field Cardio: COMMON NORMALS: regular rate, regular rhythm, S1 normal heart sound present, S2 normal heart sound present, No gallops present (Cardio), No murmurs present (Cardio), No rub (Cardio) and Peripheral pulses 2+ throughout RATE: regular rate RHYTHM: regular rhythm HEART SOUNDS: S1 normal heart sound present and S2 normal heart sound present PERIPHERAL PULSES: Peripheral pulses 2+ throughout GI: COMMON NORMALS: Normal to inspection, nondistended, normoactive bowel sounds present, Soft to palpation, non-tender, No hepatosplenomegaly present and no masses AUSCULTATION: Yes normoactive bowel sounds PALPATION: Yes Soft to palpation and Yes No hepatosplenomegaly present RECTAL EXAM: Yes deferred Extremity: COMMON NORMALS: no clubbing, cyanosis or edema and no pedal edema Neuro: COMMON NORMALS: patient oriented x3 Data 04/05/23 03:38 04/05/23 03:38 A&P Assessment and plan (1) Pulmonary embolism: (2) Pleural effusion: Plan 62 year old male with past medical history of metastatic colon cancer came in today with chief complaint of worsening shortness of breath for last several weeks.Denied any fever cough, chest pain. CTA chest done: Has shown pulmonary embolism, as well as large LT -sided, pleural effusion, and moderate Right-sided pleural effusion, s/p left-sided thoracentesis, with removal of 2 L straw-colored fluid, pending pleural fluid analysis ,post thoracentesis chest x- ray has shown, Large left pneumothorax. Assessment: Acute pulmonary embolism: CT angio chest PE protcl: Acute pulmonary embolus with multiple filling defects in the segmental and subsegmental pulmonary arteries bilaterally consistent with moderate embolus burden.Thin bridging septated saddle embolus. Main pulmonary pulmonary arteries remain patent. Follow-up 2D echo: Follow lower extremity Doppler vein: Currently patient has been started on heparin drip Plan to switch over to Eliquis on discharge Large left-sided pleural effusion: Status post left-sided thoracentesis, with removal of 2 L straw-colored fluid, pending pleural fluid analysis ,post thoracentesis chest x-ray has shown, Large left pneumothorax. Pulmonary on board Large left-sided pneumothorax:Possible trapped lung in the setting of malignant pleural effusion.r/o other causes. Monitor serial chest x-ray Pulmonary on board CODE STATUS: Full code DVT prophylaxis not needed on therapeutic anticoagulation with heparin Attestations Medical Necessity Statement*: Needs to be in hospital for management of acute pulmonary embolism left-sided pleural effusion. Anticipated length of stay greater than 2 midnights Coding Level of Care Code Acute Code for g Fwd Diagnoses Pulmonary embolism I26.99 Pleural effusion J90
[2023-04-04] MEDS: heparin drip 25,000 UNIT/500 ML PREMIX 23 UNIT IV (18:38)
[2023-04-04] MEDS: heparin 5,000 unit/mL INJ 1 mL 5000 UNIT SUBCUT (18:40)
--- NOTE | 2023-04-04 18:46 | XRR_ITS ---
PROCEDURE INFORMATION: Exam: XR Chest Exam date and time: 04/04/2023 7:06 PM Age: 62 years old Clinical indication: Pain; Other: Post thora; Additional info: Thoracentesis TECHNIQUE: Imaging protocol: Radiologic exam of the chest. Views: 1 view. COMPARISON: CR (CHEST, ) 04/04/2023 5:32 PM FINDINGS: Tubes, catheters and devices: Central line remains in place. Lungs: See Pleural spaces finding. Pleural spaces: The large left sided pleural effusion has been drained with probable minimal residual fluid remaining. Air is seen in the fluid drained pleural space (pneumothorax). This is estimated to be about 60%. There is no tension. Right lung is clear. Heart/Mediastinum: Cardiomediastinal structures are normal. Bones/joints: Unremarkable. XR/XR chest 1V portable [id number] IMPRESSION: Large left pneumothorax following left-sided thoracentesis. Additional findings as described above. THIS REPORT CONTAINS FINDINGS THAT MAY BE CRITICAL TO PATIENT CARE. The findings were verbally communicated via telephone conference with Dr. Subramanian at 7:42 PM CDT on 04/04/2023. The findings were acknowledged and understood.
[2023-04-04 19:04] LABS: Apprearance, Body Fluid CLEAR; Color, Body Fluid YELLOW
[2023-04-04 19:05] LABS: Fluid Laterality LEFT PLEURAL
[2023-04-04 19:17] LABS: Body Fluid Polynuclear #Cells 0.109; Body Fluid WBC 290 /uL; Monocytes # Body Fluid 0.181
[2023-04-04 19:23] LABS: Cyto Order Verification No Order; PATH Referral YES
[2023-04-04 19:29] VITALS: BP 106/80; PULSE 114; RESP 18; TEMP 36.4; O2SAT 89
[2023-04-04 19:42] LABS: Albumin Body Fluid 1.3 g/dL; Amylase Body Fluid 15 U/L; Cholesterol Body Fluid 55 mg/dL (0-200); Fluid Alkaline Phos. 30 IU/L; LDH Body Fluid 913 U/L; Triglycerides Body Fluid 32 mg/dL (0-150); Uric Acid Body Fluid 6 mg/dL
[2023-04-04 19:43] LABS: Total Protein Pleural Fluid 2.8 g/dL
[2023-04-04 20:00] VITALS: BP 106/89; PULSE 96; RESP 30; TEMP 36.9; O2SAT 92
--- NOTE | 2023-04-04 20:06 | P.CONIM_ITS ---
Providers/Reason For Consult Consulting Physician/Specialty*: Stevo Marks MD, FCCP/pulmonary critical care Reason for Consult*: Large pleural effusion Requesting Physician: Dr. Harvey Attending Physician: Best Cummings MD Primary Care Provider: Mason Adams MD History of Present Illness History of Present Illness Aldair Buckley is a 62 year old male with history of metastatic colon cancer diagnosed February 2021 s/p surgical resection s/p chemotherapy-has significant omental metastasis retroperitoneal and pelvic lymph nodes, malignant ascites. He had several recurrences s/p bowel resections s/p sigmoid stent. His last CT chest abdomen in September 2022 did not show any evidence of new or progressive metastatic disease in the chest. Most recently during his oncology clinic visit to me he has mentioned pain in left axilla radiating to upper left chest, pleuritic in nature. Today he received outpatient CTA chest showed moderate burden of clot with a thin septated saddle embolism but his main pulmonary arteries were still patent. He was referred to emergency room. Today presented to emergency room complaining of chest discomfort and progressive worsening shortness of breath for last several weeks. He was tachycardic and hypoxic on arrival both of these improved with oxygen support and was requiring 3 to 4 L nasal cannula. CTA also showed significant large left pleural effusion with compressive lung along the hilum as well as compressing the left ventricle with left to right mass effect on the heart and mediastinum. There is moderate right pleural effusion with compressive atelectasis right lower lobe. Pulmonary critical care consult requested for thoracentesis. I have seen patient in the ER [facility], he is currently using 4 to 5 L of nasal cannula-saturating 90 to 94%, heart rate ranging from 1 10-1 30s, blood pressure is normal. His is at bedside. Patient reported that he has significant chest discomfort and difficulty breathing. I have performed left thoracentesis and drained 2 L straw-colored fluid with slow negative suction over 20 to 25 minutes. Patient reported improvement in his chest discomfort and states that he can feel his breathing is better. Postprocedure his heart rate down to 90s, saturating 95% on 4 L nasal cannula, normal blood pressure. However postprocedure chest x-ray reported as large left pneumothorax seen in the area where fluid was drained. It is estimated about 60% and there is no tension. This looks like a pneumo ex vacuo. Patient is hemodynamically stable and reported that he is breathing is better after removal of the fluid. Heparin drip initiated for pulmonary embolism. Review of Systems General: Reports: 10 or more systems reviewed and unremarkable except in HPI and below Medications/Allergies Home Medications Medication Instructions Recorded Confirmed Last Taken Type esomeprazole magnesium 20 mg 20 mg PO DAILY 01/16/23 03/26/23 03/26/23 History capsule,delayed release (Nexium) sennosides 8.6 mg-docusate sodium 1 tab-cap PO DAILY PRN Constipation 01/30/23 03/26/23 03/25/23 History 50 mg tablet (Senna-S) bevacizumab-awwb 25 mg/mL 730 mg (29.2 mL) IV Q21D #32 mL 02/12/23 03/26/23 01/28/23 Rx intravenous solution ibuprofen 200 mg tablet (Advil) 400 mg PO Q6H PRN Pain 02/12/23 03/26/23 03/26/23 History ondansetron 4 mg disintegrating 4 - 8 mg PO Q8H PRN nausea and 02/12/23 03/26/23 1 Year Ago History tablet vomiting ~03/26/22 citalopram 20 mg tablet 20 mg PO DAILY PRN mood #90 tabs 02/21/23 03/26/23 1 Month Ago Rx ~02/24/23 dronabinol 10 mg capsule 10 mg PO QID #120 caps 02/25/23 03/26/23 3 Weeks Ago Rx ~03/05/23 prochlorperazine maleate 10 mg 10 mg PO Q4H PRN Nausea #30 tabs 02/25/23 03/26/23 1 Month Ago Rx tablet (Compazine) ~02/24/23 capecitabine 500 mg tablet See Rx Instructions .Route .COMPLEX 03/18/23 03/26/23 2 Months Ago History ~01/24/23 alprazolam 1 mg tablet 1 mg PO TID PRN anxiety #90 tabs 03/25/23 03/26/23 03/26/23 Rx Allergies Allergy/AdvReac Type Severity Reaction Status Date / Time No Known Allergies Allergy Verified 03/18/23 08:40 Current Medications Generic Name Dose Route Start Last Admin Trade Name Freq PRN Reason Stop Dose Admin Heparin Sodium/Sodium Chloride 25,000 unit in 500 mls @ 0 mls/hr 04/04/23 18:30 04/04/23 18:38 Heparin Drip IV 14.32 unit/kg/hr .Q0M TIMMY 23 mls/hr Administration Protocol Per Protocol PFSH Acute PFSH: Medical History Colon cancer History of angina in association with infusional 5-FU chemotherapy Surgical History History of colonoscopy 04/2022 with evidence of recurrence at anastomosis History of partial surgical removal of colon (03/08/21) low anterior resection for sigmoid colon cancer Port-A-Cath in place S/P laparoscopy (12/06/21) Diagnostic laparoscopy with omental biopsy Family History Other Cancer Diabetes Denies family history of CAD (coronary artery disease) Clotting disorder Dementia Hyperlipidemia Psychiatric illness Chronic kidney disease (CKD) Suicide Anesthesia complication Bleeding disorder Lung disease Hypertension Stroke Social History Smoking and tobacco status: former smoker Alcohol intake: current Alcohol intake frequency: few times a month Alcohol type: beer Vitals/I&O/Wt Last Vital Signs Temp 97.6 F 04/04/23 19:29 Pulse 114 H 04/04/23 19:29 Resp 18 04/04/23 19:29 BP 106/80 04/04/23 19:29 Pulse Ox 89 L 04/04/23 19:29 O2 Del Method Room Air 04/04/23 17:18 04/04/23 04/04/23 04/04/23 06:59 14:59 22:59 Output Total 2049 / 2049 Balance -2049 / -2049 Weight last 48 hrs Weight 177 lb Physical Exam Narrative: General: alert, NAD HEENT: conj clear, EOMI, PERRL, mmm, Neck: supple, no meningismus Heme: no cervical LAP Respiratory: : Reduced breath sounds on left side of the chest Cardiovascular: rrr, nl s1s2, no mrg Abdomen: soft, nt, nd, no r/g, bs+ Extremities: pulses +, no edema, no c/c : no CVA tenderness Skin: intact, no rash MSK: no back or neck pain Neurologic: grossly intact Data 04/04/23 17:04/04/23 17: Other Labs: Radiology Impressions Chest X-Ray 04/04/23 21:00 IMPRESSION: 1. Large left pneumothorax again seen similar to prior exam. 2. Left-sided Port-A-Cath with tip in the superior vena cava. 3. Emphysematous changes. Laboratory Results WBC 12.0 10^3/uL (4.0-10.0) H 04/04/23 17: RBC 5.71 10^6/uL (4.1-5.3) H 04/04/23: Hgb 16.7 g/dL (11.7-16.6) H 04/04/23: Hct 52.2 % (42.0-52.0) H 04/04/23: MCV 91.4 fl (80-94) 04/04/23: MCH 29.2 pg (28.0-34.0) 04/04/23 17: MCHC 32.0 g/dL (30.0-36.0) 04/04/23 17: RDW 16.3 % (12.1-15.1) H 04/04/23: Plt Count 464 10^3/cmm (130-400) H 04/04/23 17: MPV 9.4 fL (7.4-10.4) 04/04/23: Neut % (Auto) 76.6 % 04/04/23: Lymph % (Auto) 10.0 % 04/04/23 17: [place] % (Auto) 11.3 % 04/04/23: Eos % (Auto) 1.1 % 04/04/23: Baso % (Auto) 0.6 % 04/04/23: Neut # (Auto) 9.19 10^3/uL (1.8-7.7) H 04/04/23: Lymph # (Auto) 1.2 10^3/uL (0.8-4.8) 04/04/23: [place] # (Auto) 1.4 10^3/uL (0.2-0.9) H 04/04/23 17:29 Eos # (Auto) 0.1 10^3/uL (0.0-0.8) 04/04/23 17: Baso # (Auto) 0.1 10^3/uL (0.0-0.1) 04/04/23 17: Nucleated RBC % (auto) 0 % 04/04/23 17: Nucleated RBCs # 0.0 /100WBC 04/04/23 17: Differential Comment Yes 04/04/23 18:56 PT 15.70 SECONDS (12.1-14.9) H 04/04/23 17: INR 1.21 (0.8-1.2) H 04/04/23 17: APTT 33.3 SECONDS (23.9-36.7) 04/04/23 17: Sodium 133 mmol/L (136-145) L 04/04/23 17: Potassium 4.3 mmol/L (3.5-5.1) 04/04/23 17: Chloride 97 mmol/L (98-107) L 04/04/23 17: Carbon Dioxide 22 mmol/L (22-29) 04/04/23 17: Anion Gap 18.3 (5-19) 04/04/23 17: BUN 12 mg/dL (8-23) 04/04/23 17: Creatinine 0.6 mg/dL (0.7-1.2) L 04/04/23 17:29 GFR Calculation 135.6 mL/min (90-130) H 04/04/23 17: Glucose 89 mg/dL (65-115) 04/04/23 17: Calculated Osmolality 275 mOsm/kg (285-295) L 04/04/23 17: Calcium 9.1 mg/dL (8.5-10.5) 04/04/23 17: Total Bilirubin 0.7 mg/dL (0.15-1.2) 04/04/23 17: AST 11 U/L (0-40) 04/04/23 17: ALT 6 U/L (0-41) 04/04/23 17: Alkaline Phosphatase 129 U/L (40-130) 04/04/23 17: Total Protein 6.5 g/dL (6.6-8.7) L 04/04/23 17:29 Albumin 2.5 g/dL (3.5-5.2) L 04/04/23 17:29 Globulin 4.0 g/dL (1.3-4.6) 04/04/23 17:29 Fluid Color Yellow 04/04/23 18:56 Fluid Appearance Clear 04/04/23 18:56 Fluid Specific Grav 1.010 04/04/23 18:56 Fluid pH 8.0 04/04/23 18:56 Fluid WBC 290 /uL 04/04/23 18:56 Fluid RBC 2.000 10^3/uL 04/04/23 18:56 Fld Polynuclear WBCs # 0.109 04/04/23 18:56 Fld Polynuclear WBCs % 37.600 % 04/04/23 18:56 Fl Mononucl WBCs #(Auto) 0.181 04/04/23 18:56 Fl Mononuclear % Auto 62.400 % 04/04/23 18:56 Fld Crystal Laterality Left pleural 04/04/23 18:56 Fluid Glucose 4.0 mg/dL 04/04/23 18:56 Fluid Albumin 1.3 g/dL 04/04/23 18:56 Fluid LDH 913 U/L 04/04/23 18:56 Fluid Amylase 15 U/L 04/04/23 18:56 Fluid Alk Phosphatase 30 IU/L 04/04/23 18:56 Fluid Cholesterol 55 mg/dL (0-200) 04/04/23 18:56 Fluid Triglycerides 32 mg/dL (0-150) 04/04/23 18:56 Fluid Uric Acid 6 mg/dL 04/04/23 18:56 Pleural Total Protein 2.8 g/dL 04/04/23 18:56 A&P Assessment and plan (1) Pulmonary embolism: Acute PE with multiple filling defects in segmental subsegmental pulmonary arteries bilaterally with moderate embolic burden, thin bridging septal shaper saddle embolus. Main pulmonary arteries remain patent. Currently saturating 95% on 4 L supplemental oxygen Started on heparin drip (2) Pneumothorax ex vacuo: 60% air seen in left pleural cavity after draining 2 L of pleural effusion with no tension Patient is hemodynamically stable and has reported improvement in breathing after thoracentesis Suspect this is pneumothorax ex vacuo We will continue close hemodynamic monitoring, clinical monitoring and with chest x-rays We do not know how long the effusion has been there causing left lung collapse- it is quite possible that he may not have enough surfactant to have end expiratory pressure. If it is the case it may take 1 to 3 days for the lung to expand. Other plausible reason is endobronchial lesion from possible metastatic colon cancer causing left lung atelectasis-and all the pleural fluid accumulated could be related to negative pressure from collapsed lung. We will monitor with daily chest x-rays and if left lung does not expand in 2 to 3 days-we will plan for bronchoscopy inspection of airways and possible biopsies of endobronchial lesion. At that point of time we may have to hold heparin 4 to 6 hours prior to procedure (3) Large pleural effusion: S/p thoracentesis 2 L straw-colored fluid is removed Pleural fluid analysis showed lymphocyte predominant exudative fluid Cultures, cytology are pending (4) Malignant neoplasm of sigmoid colon: Diagnosed 2020-s/p multiple resections s/p multiple recurrences s/p chemo therapy-follows up with oncology as outpatient Consult Attestations Medical Necessity Statement: Need close monitoring for at least 2 to 3 days Time Spent in Patient Care: Greater than 35 minutes (>than 50% of time spent in counselling and/or direct pt care on unit) . Critical Care Time: The high probability of a clinically significant, sudden or life threatening deterioration of the patient's [Pulmonary] system(s) required my full and direct attention, intervention and personal management. The critical care time is as shown. This time is in addition to time spent performing any reported procedures but includes the following: [x] Data and vital sign review and interpretation [x] Patient assessment, examination and intervention [x] Documentation [x] Medication orders and management Critical Care Time (min): 85 Coding Level of Care Code 00212 Diagnoses Pulmonary embolism I26.99 Pneumothorax ex vacuo J93.83 Large pleural effusion J90 Malignant neoplasm of sigmoid colon C18.7 Time Spent (min) 85
--- NOTE | 2023-04-04 20:08 | P.PCN_ITS ---
Procedure/Consent Time out: Time Out Performed: Yes Consent: Consent for Procedure: Consent obtained from other (indicate), Risks & Benefits reviewed and Agrees to proceed with procedure Procedure Narrative: Pulmonary & Critical Care Medicine Procedure - Ultrasound guided Thoracentesis Procedure: CPT code 25415 thoracentesis, needle or catheter, aspiration of the pleural space; with imaging guidance Indication: Large left pleural effusion. C56.2 Professor Of Physical Education(s): Stevo Marks MD [facility] Clinical history:62-year-old male with past medical history of metastatic colon cancer s/p chemotherapy comes to emergency room with shortness of breath. CTA showed moderate burden PE as well as large left pleural effusion with mass effect on heart Technique: The study was performed in an ACR accredited facility. Medication reconciliation form reviewed and any changes related this procedure resolved. Report: The procedure for thoracentesis was explained to the patient including the risks, benefits and possible complications. The patient was given the opportunity to ask questions, wished to proceed, and signed the written informed consent form. Using ultrasound guidance, a safe route of access was identified into the Left pleural space. The site was then prepped and draped using maximal sterile barrier technique. The 1% lidocaine was used for local anesthetic. With sonographic guidance, a 6 Polish thoracentesis catheter was placed with return of 5 cc straw-colored pleural fluid. The catheter was slipped into the pleural cavity and approximately 2 L of Straw-colored pleural fluid was removed. Postprocedure there was still some residual pleural effusion on ultrasound examination. Impression: 1. Successful ultrasound-guided Left thoracentesis with removal of approximately 2 L of Straw-colored pleural fluid Postprocedure chest x-ray showed large Air in the place where fluid was drained- looks more suspicious for pneumo ex vacuo.The patient tolerated the procedure well And reported that his chest discomfort is better and his breathing is better. He remained hemodynamically stable.. ICD-10 code-J90 pleural effusion, not elsewhere classified Acute Procedures Epistaxis Control: Time out performed: Yes
[2023-04-04] MEDS: heparin drip 25,000 UNIT/500 ML PREMIX 22 UNIT IV (20:34)
--- NOTE | 2023-04-04 21:00 | XRR_ITS ---
PROCEDURE INFORMATION: Exam: XR Chest Exam date and time: 04/04/2023 8:08 PM Age: 62 years old Clinical indication: Other: Follow uo; Additional info: Follow on pneumo ex vacuo TECHNIQUE: Imaging protocol: Radiologic exam of the chest. Views: 1 view. COMPARISON: CR (CHEST, ) 04/04/2023 7:06 PM FINDINGS: Tubes, catheters and devices: Left-sided Port-A-Cath with tip in the superior vena cava. Lungs: Emphysematous changes. Pleural spaces: Large left pneumothorax again seen similar to prior exam. Heart/Mediastinum: Unremarkable. No cardiomegaly. Bones/joints: Unremarkable. XR/XR chest 1V portable [id number] IMPRESSION: 1. Large left pneumothorax again seen similar to prior exam. 2. Left-sided Port-A-Cath with tip in the superior vena cava. 3. Emphysematous changes.
[2023-04-04] MEDS: piperacillin-tazobactam 3.375 GM in sodium chloride 0.9% (plus) 50 ML IV (21:53)
[2023-04-04 22:00] VITALS: PULSE 92
[2023-04-04] MEDS: ALPRAZolam 0.5 mg Tablet 1 MG PO (22:01)
[2023-04-04 22:43] LABS: Add Urine Microscopic? YES; Bilirubin Urine 2+ (Negative); Blood Urine Neg (Negative); Glucose Urine UA Norm (Normal); Ketones Urine 1+ (Negative); Leukocyte Esterase Urine Negative (Negative); Nitrate Urine Negative (Negative); Protein Urine 1+ (Negative); Specific Gravity, Urine 1.015 (1.005-1.030); Urine Appearance Clear (CLEAR); Urobilinogen Urine 8 mg/dL (Negative); pH Urine 5 (5-7)
[2023-04-04 22:44] LABS: Add Urine Culture? No; Bacteria Urine TRACE /hpf; Mucus Urine TRACE /hpf; Squamous Epithelial Cell Urine 0-4 /hpf (0-5); Urine Color Dark Yellow (Yellow); WBC Urine 0-4 /hpf (0-5)
[2023-04-05] VITALS (60 sets, daily range): BP systolic 111–128; BP diastolic 78–85; PULSE 85–101; RESP 18–35; TEMP 36.3–37; O2SAT 79–93
[2023-04-05] MEDS: piperacillin-tazobactam 3.375 GM in sodium chloride 0.9% (plus) 50 ML IV ×3 (03:38→20:06)
[2023-04-05 04:15] LABS: Basophils # 0.1 10^3/uL (0.0-0.1); Basophils % 0.7 %; Eosinophils # 0.2 10^3/uL (0.0-0.8); Eosinophils % 2.5 %; Hematocrit 49.9 % (42.0-52.0); Hemoglobin 16.5 g/dL (11.7-16.6); Lymphocytes # 0.9 10^3/uL (0.8-4.8); Mean Corpuscular HGB Conc 33.1 g/dL (30.0-36.0); Mean Corpuscular Hemoglobin 29.9 pg (28.0-34.0); Mean Corpuscular Volume 90.6 fl (80-94); Monocytes # 1.1 10^3/uL (0.2-0.9); Monocytes % 12.1 %; Neutrophils # 6.77 10^3/uL (1.8-7.7); Neutrophils % 74.4 %; Nucleated Red Blood Cells % 0 %; Platelet Count 447 10^3/cmm (130-400); Red Blood Count 5.51 10^6/uL (4.1-5.3); Red Cell Distribution Width 16.1 % (12.1-15.1); White Blood Count 9.1 10^3/uL (4.0-10.0)
[2023-04-05 04:42] LABS: Partial Thromboplastin Time 34.3 SECONDS (23.9-36.7)
[2023-04-05 04:46] LABS: Alanine Aminotransferase < 5 U/L (0-41); Albumin Level 2.5 g/dL (3.5-5.2); Alkaline Phosphatase 128 U/L (40-130); Blood Urea Nitrogen 11 mg/dL (8-23); Carbon Dioxide 25 mmol/L (22-29); Chloride 98 mmol/L (98-107); Globulin 3.3 g/dL (1.3-4.6); Glomerular Filtration Rate 135.6 mL/min (90-130); Glucose 80 mg/dL (65-115); Magnesium 2.2 mg/dL (1.7-2.3); Osmolality Calculated 278 mOsm/kg (285-295); Sodium 135 mmol/L (136-145); Total Bilirubin 0.7 mg/dL (0.15-1.2); Total Protein 5.8 g/dL (6.6-8.7)
[2023-04-05 04:49] LABS: Aspartate Amino Transferase 16 U/L (0-40)
[2023-04-05] MEDS: ALPRAZolam 0.5 mg Tablet 1 MG PO ×2 (07:45→19:41)
--- NOTE | 2023-04-05 08:56 | XR_ITS ---
WS: [id number] Exam: XR chest 1V portable [id number] Date/Time of Exam: 04/05/2023 8:58 AM Reason For Exam: pneumonia Comparison 04/04/2023. Again noted is left-sided pneumothorax estimated between 70 and 80% unchanged. No significant midline shift or tension. There is increasing infiltrate in the right lower lobe since the prior study that may represent developing pneumonia. Small right pleural effusion. The mediastinum is normal in contou r. Heart size is normal. A left subclavian port ends in the lower one third of the SVC. Bony structur es are intact. XR/XR chest 1V portable [id number] IMPRESSION: 1. Left-sided pneumothorax estimated between 70 and 80% unchanged. 2. Infiltrate in the right lung base suspicious for developing pneumonia. Small right pleural effusion.
[2023-04-05 11:32] LABS: Partial Thromboplastin Time 54.7 SECONDS (23.9-36.7)
[2023-04-05] MEDS: heparin 5,000 unit/mL INJ 1 mL IV (13:07)
--- NOTE | 2023-04-05 15:22 | P.PN_ITS ---
Subjective Subjective: Patient was seen and examined this morning shortness of breath is improved,serial chest x-ray is being done. Medications: Medication Review Details: Generic Name Dose Route Start Last Admin Trade Name Thelma PRN Reason Stop Dose Admin Alprazolam 1 mg 04/04/23 18:51 04/05/23 07:45 Alprazolam 0.5 M g Tablet PO 1 mg TID PRN Administration ANXIETY Heparin Sodium (Po rcine) 0 unit 04/04/23 17:33 04/05/23 13:07 Heparin 5,000 Un it/Ml Inj 1 Ml IV 1,600 unit PRN PRN Administration Heparin weight-ba se protocol Protocol Heparin Sodium/Sod ium Chloride 25,000 unit in 50 0 mls @ 0 mls/hr 04/04/23 18:30 04/05/23 12:52 Heparin Drip IV 14.95 unit/kg/hr .Q0M TIMMY 24 mls/hr Titration Protocol Per Protocol Piperacillin Sod/T azobactam 50 mls @ 12.5 mls /hr 04/04/23 20:00 04/05/23 13:08 Sod 3.375 gm/ So dium Chloride IV 12.5 mls/hr Q8H TIMMY Administration Protocol Vitals/I&O/Wt Last Vital Signs Temp 97.6 F 04/05/23 08:00 Pulse 95 04/05/23 14:00 Resp 32 H 04/05/23 12:00 BP 128/78 04/05/23 12:00 Pulse Ox 93 04/05/23 12:00 O2 Del Method Nasal Cannula 04/05/23 12:00 04/05/23 04/05/23 04/05/23 06:59 14:59 22:59 Intake Total 50 / 94.467 988.6 / 988.6 Output Total 275 / 2625 Balance -225 / -2530.533 988.6 / 988.6 Weight last 48 hrs Weight 80.286 kg Physical Exam Const: COMMON NORMALS: patient oriented x3 HENMT: COMMON NORMALS: normocephalic and atraumatic HEAD & SCALP: normocephalic and atraumatic Resp: COMMON NORMALS: clear to auscultation bilaterally AUSCULTATION: clear to auscultation bilaterally OTHER: Diminished air entry in left lung field Cardio: COMMON NORMALS: regular rate, regular rhythm, S1 normal heart sound present, S2 normal heart sound present, No gallops present (Cardio), No murmurs present (Cardio), No rub (Cardio) and Peripheral pulses 2+ throughout RATE: regular rate RHYTHM: regular rhythm HEART SOUNDS: S1 normal heart sound present and S2 normal heart sound present PERIPHERAL PULSES: Peripheral pulses 2+ throughout GI: COMMON NORMALS: Normal to inspection, nondistended, normoactive bowel sounds present, Soft to palpation, non-tender, No hepatosplenomegaly present and no masses AUSCULTATION: Yes normoactive bowel sounds PALPATION: Yes Soft to palpation and Yes No hepatosplenomegaly present RECTAL EXAM: Yes deferred Extremity: COMMON NORMALS: no clubbing, cyanosis or edema and no pedal edema Neuro: COMMON NORMALS: patient oriented x3 Data 04/05/23 03:38 04/05/23 03:38 A&P Assessment and plan (1) Pulmonary embolism: (2) Pleural effusion: Plan 62 year old male with past medical history of metastatic colon cancer came in today with chief complaint of worsening shortness of breath for last several weeks.Denied any fever cough, chest pain. CTA chest done: Has shown pulmonary embolism, as well as large LT -sided, pleural effusion, and moderate Right-sided pleural effusion, s/p left-sided thoracentesis, with removal of 2 L straw-colored fluid, pending pleural fluid analysis ,post thoracentesis chest x- ray has shown, Large left pneumothorax. Assessment: Acute pulmonary embolism: CT angio chest PE protcl: Acute pulmonary embolus with multiple filling defects in the segmental and subsegmental pulmonary arteries bilaterally consistent with moderate embolus burden.Thin bridging septated saddle embolus. Main pulmonary pulmonary arteries remain patent. Cardiac 2D echo: The echo results have been reviewed,The left ventricle appears to be normal in size and function in this view.? Diastolic function cannot be ?determined.? No obv ious wall motion disturbances. The right ventricle appears normal in size and function.? ?Pulmonary artery pressure rough estimate is 50 mmHg. Poor quality study. lower extremity Doppler vein:Mobile Partially occlusive thrombus DVT LEFT common femoral. Currently patient has been started on heparin drip Plan to switch over to Eliquis on discharge. DVT: lower extremity Doppler vein:Mobile Partially occlusive thrombus DVT LEFT common femoral. Currently on heparin drip Large left-sided malignant pleural effusion: Status post left-sided thoracentesis, with removal of 2 L straw-colored fluid Fluid analysis is consistent with exudative pleural effusion.Pleural fluid is positive for malignant cells. Pulmonary on board. Empirically on Zosyn Large left-sided pneumothorax:Possible trapped lung in the setting of malignant pleural effusion.r/o other causes. Monitor serial chest x-ray Pulmonary on board CODE STATUS: Full code DVT prophylaxis not needed on therapeutic anticoagulation with heparin Attestations Medical Necessity Statement*: Needs to be in hospital for management of pulmonary embolism. Coding Level of Care Code [facility] Diagnoses Pulmonary embolism I26.99 Pleural effusion J90
[2023-04-05] MEDS: pantoprazole DR 40 mg Tablet PO (18:14)
--- NOTE | 2023-04-05 18:25 | USCV_ITS ---
Aldair Buckley Age: 62 Gender: M : 1960 Exam Date: 04/05/2023 02:26 Ordering Phys: Ghanshyam Harvey DO Technologist: NICKY [place] [facility] [place]ication: Saddle pulmonary embolus. History of colon CA. Evaluate for RIGHT heart strain. BP: 106 / 80 HR: 68 Rhythm: Sinus Technical Quality: Technically difficult study due to poor windows MEASUREMENTS (Male / Female) Normal Values 2D ECHO LV Diastolic Diameter PLAX 3.3 cm 4.2 - 5.9 / 3.9 - 5.3 cm LV Systolic Diameter PLAX 2.0 cm IVS Diastolic Thickness 1.3 cm 0.6 - 1.0 / 0.6 - 0.9 cm IVS Systolic Thickness 1.3 cm LVPW Diastolic Thickness 1.3 cm 0.6 - 1.0 / 0.6 - 0.9 cm LVPW Systolic Thickness 1.5 cm LVOT Diameter 2.0 cm LV Ejection Fraction 2D Teich 72.6 % LV Ejection Fraction MOD 2C 52.1 % LV Ejection Fraction 2C AL 51.4 % LA Diameter 3.1 cm LA Width 4.0 cm LA Height 5.7 cm RA Width 3.5 cm RA Height 4.2 cm Aorta at Sinotubular Diameter 2.7 cm IVC Diameter 1.8 cm M-MODE Aortic Annulus Diameter 3.7 cm LA Ao Ratio MM 0.9 MV E Point Septal Separation 0.5 cm DOPPLER AV Peak Velocity 109.0 cm/s LVOT Peak Velocity 83.0 cm/s AV Area Cont Eq vti 3.6 cm squared AV Area Cont Eq pk 2.4 cm squared MV Peak Velocity 79.0 cm/s MV Area PHT 3.1 cm squared Mitral E to A Ratio 1.1 MV E' Velocity 31.0 cm/s Mitral E to MV E' Ratio 13.1 Mitral E to LV E' Lateral Ratio 14.4 Mitral E to LV E' Septal Ratio 12.0 TR Peak Velocity 339.8 cm/s TR Peak Gradient 46.2 mmHg TV Peak E Velocity 39.0 cm/s Right Atrial Pressure 5.0 mmHg Pulmonary Artery Systolic Pressu 51.2 mmHg PV Peak Velocity 75.0 cm/s RV Acceleration Time 0.1 s RV Ejection Time 0.3 s RV AcT/ET 0.3 FINDINGS Left Ventricle This is a very poor quality study. The only view of use is the subcostal view. The left ventricle appears to be normal in size and function in this view. Diastolic function cannot be determined. No obvious wall motion disturbances. Right Ventricle The right ventricle appears normal in size and function. Pulmonary artery pressure rough estimate is 50 mmHg. Right Atrium The right atrium is normal in size. Left Atrium The left atrium is normal in size. Mitral Valve The mitral valve is poorly seen. There is probably trace to mild mitral regurgitation. Aortic Valve Aortic valve was not seen. There is trace to mild aortic insufficiency. Tricuspid Valve Tricuspid valve poorly seen. Mild tricuspid regurgitation. Pulmonic Valve Pulmonic valve not seen. Pericardium Normal pericardium without effusion. Aorta Aorta not well visualized. IVC Inferior vena cava not visualized. CONCLUSIONS This is a very poor quality study. The only view of use is the subcostal view. The left ventricle appears to be normal in size and function in this view. Diastolic function cannot be determined. No obvious wall motion disturbances. The right ventricle appears normal in size and function. Pulmonary artery pressure rough estimate is 50 mmHg. The mitral valve is poorly seen. There is probably trace to mild mitral regurgitation. Aortic valve was not seen. There is trace to mild aortic insufficiency. There are no prior echocardiogram studies to compare. Dr. Jesus Ashby MD (Electronically Signed) Final Date: 05 April 2023 08:23 S
[2023-04-05 19:21] LABS: Partial Thromboplastin Time 110.9 SECONDS (23.9-36.7)
--- NOTE | 2023-04-05 19:52 | USCV_ITS ---
Aldair Buckley Age: 62 Gender: M : 1960 Exam Date: 04/05/2023 01:59 Ordering Phys: Best Cummings MD Technologist: NICKY Exam Location: [facility] – [place] Indication: Saddle pulmonary embolus. No history of DVT per patient. HISTORY: Saddle pulmonary embolus. No history of DVT per patient. PROCEDURES: Venous duplex imaging was performed in bilateral lower extremities. The following venous structures were evaluated: common femoral vein, profunda vein, proximal portion of the greater saphenous vein, superficial femoral vein, and the popliteal vein. In addition, the posterior tibial veins were evaluated. Serial compression, augmentation maneuvers, and spectral Doppler flow evaluation were performed, which were normal in all except the LEFT common femoral vein. On the RIGHT, the common femoral, superficial femoral, profunda femoral, popliteal, posterior tibial, and greater saphenous veins were identified and interrogated in the standard fashion. These veins were found to be easily compressible with spontaneous blood flow. No evidence thrombus noted in the RIGHT lower extremity. On the LEFT side, the common femoral demonstrates a mobile thrombus which does NOT completely compress and there is a partial channel effect. Otherwise, the LEFT superficial femoral, profunda femoral, popliteal, posterior tibial, and greater saphenous veins were identified and interrogated in the standard fashion. These veins were found to be easily compressible with spontaneous blood flow. CONCLUSIONS Mobile Partially occlusive thrombus DVT LEFT common femoral. Remainder LEFT lower extremity veins patent No evidence RLE DVT Gallito Pinedo MD (Electronically Signed) Final Date: 05 April 2023 09:16 S
[2023-04-05] MEDS: calcium carbonate 500 mg Chew Tablet PO (20:24)
--- NOTE | 2023-04-05 23:14 | P.PN_ITS ---
Subjective Subjective: Patient did well over weekend-however Saturday night he became more dyspneic requiring increasing oxygen supplementation This morning and needed to be placed on heated high flow nasal cannula, curre ntly FiO2 at 100% 50 L/min. CT chest was repeated which showed a persistent left hydropneumothorax with recurrent moderate left pleural effusion. Bedside ultrasound showed posteriorly located pocket but it is far less than admission pleural effusion-which makes it sole contributor and causing his worsening respiratory status. Although he is on heparin drip-he had a PE in pulmonary main trunk which was thin bridging septated saddle embolus which may also be contributing to his shortness of ace ath. Additionally pathologist reported pleural fluid showing malignant cells- cellblock was sent out to run IHC's and obtain more information about the histological type of malignancy. Despite draining 2 L of fluid-not expansion of left lung-with 60 to 70% of pneumo ex vacuo-raises high likelihood of endobronchial metastatic/primary lesion for which I had earlier discussed with patient and family about possible bronchoscopic evaluation and biopsies once he is clinically stable. I have discussed pleural fluid cytology results over phone with Dr. Brar over phone, patient's oncologist, who reported that patient's metastatic colon cancer unfortunately did not respond to treatments and with malignant cells in pleural effusion-he opined that patient's underlying cancer may be worsening and u nfortunately we do not have encouraging treatments at this point. He recommended to have goals of care discussion including hospice/comfort care with the patient. After having extensive goals of care discussion with patient, his , his daughter, and son-in-law and patient opted for hospice care and family agreed with his decision. He requested to go to home hospice. Medications: Reviewed: Yes Medication Review Details: Generic Name Dose Route Start Last Admin Trade Name Freq PRN Reason Stop Dose Admin Alprazolam 1 mg 04/04/23 18:51 04/07/23 14:36 Alprazolam 0.5 M g Tablet PO 1 mg TID PRN Administration ANXIETY Calcium Carbonate 500 mg 04/05/23 17:29 04/07/23 12:39 Calcium Carbonat e 500 Mg Chew Tabl et PO 500 mg Q4H PRN Administration INDIGESTION Heparin Sodium (Po rcine) 0 unit 04/04/23 17:33 04/07/23 11:43 Heparin 5,000 Un it/Ml Inj 1 Ml IV 1,600 unit PRN PRN Administration Heparin weight-ba se protocol Protocol Heparin Sodium/Sod ium Chloride 25,000 unit in 50 0 mls @ 0 mls/hr 04/04/23 18:30 04/07/23 11:44 Heparin Drip IV 14.32 unit/kg/hr .Q0M TIMMY 23 mls/hr Titration Protocol Per Protocol Piperacillin Sod/T azobactam 50 mls @ 12.5 mls /hr 04/04/23 20:00 04/07/23 15:51 Sod 3.375 gm/ So dium Chloride IV Infused Q8H [facility] Infusion Protocol Pantoprazole Sodiu m 40 mg 04/07/23 09:00 04/07/23 11:57 Pantoprazole 40 Mg Sdv IVP Not Given BID [facility] Vitals/I&O/Wt Last Vital Signs Temp 98.1 F 04/05/23 20:00 Pulse 101 H 04/05/23 20:00 Resp 26 H 04/05/23 20:00 BP 115/80 04/05/23 20:00 Pulse Ox 88 L 04/05/23 20:00 O2 Del Method Nasal Cannula 04/05/23 20:00 O2 Flow Rate 5 04/05/23 20:00 04/05/23 04/05/23 04/06/23 14:59 22:59 06:59 Intake Total 988.6 / 988.6 491.4 / 1480.0 Balance 988.6 / 988.6 491.4 / 1480.0 Weight last 48 hrs Weight 177 lb Physical Exam Narrative: General: alert, NAD HEENT: conj clear, EOMI, PERRL, mmm, Neck: supple, no meningismus Heme: no cervical LAP Respiratory: : Reduced breath sounds on left side of the chest Cardiovascular: rrr, nl s1s2, no mrg Abdomen: soft, nt, nd, no r/g, bs+ Extremities: pulses +, no edema, no c/c : no CVA tenderness Skin: intact, no rash MSK: no back or neck pain Neurologic: grossly intact Data 04/08/23 04:04 04/08/23 04:04 Micro: Microbiology 04/04/23 18:56 Gram Stain - Final Pleural Fluid Body Fluid Culture - Preliminary A&P Assessment and plan (1) Pulmonary embolism: Acute PE with multiple filling defects in segmental subsegmental pulmonary arteries bilaterally with moderate embolic burden, thin bridging septal shaper saddle embolus. Main pulmonary arteries remain patent. Worsening respiratory status requiring high flow nasal cannula 50 L 100% Currently on heparin drip (2) Pneumothorax ex vacuo: 60% air seen in left pleural cavity after draining 2 L of pleural effusion with no tension-initially he reported improvement in breathing after thoracentesis Postprocedure chest x-ray did not show any lung expansion-suspect this is pneumothorax ex vacuo We do not know how long the effusion has been there causing left lung collapse- Other plausible reason is endobronchial lesion from possible metastatic colon cancer causing left lung atelectasis-and all the pleural fluid accumulated could be related to negative pressure from collapsed lung. There was plan to do bronchoscopic evaluation-however patient deteriorated over the weekend with worsening respiratory status requiring high flow nasal cannula 50 L 100% and reaccumulation of left-sided hydropneumothorax. Pleural effusion showing malignant cells-suggestive of rapidly accumulating malignant pleural effusion and treatment failed metastatic colon cancer patient Patient opted for comfort care-had discussion about placing Pleurx catheter for symptomatic relief-however given his rapid clinical deterioration with advanced metastatic cancer and anticipated mortality not more than a week given his 50 L 100% requirement of high flow nasal cannula-I do not think Pleurx catheter will be of any benefit at this point of time. However when I checked with ultrasound the effusion was more posteriorly loculated which is not an ideal place to put a Pleurx catheter as well. With all these considerations-patient prefer not to have any more procedures as well. (3) Large pleural effusion: S/p thoracentesis 2 L straw-colored fluid is removed Pleural fluid analysis showed lymphocyte predominant exudative fluid Cytology showed malignant cells Patient opted for comfort care (4) Malignant neoplasm of sigmoid colon: Diagnosed 2020-s/p multiple resections s/p multiple recurrences s/p chemo therapy-follows up with oncology as outpatient (5) Counseling regarding advance directives and goals of care: Patient opted for foot care Attestations Medical Necessity Statement*: Patient opted for comfort care-currently ongoing discussions to discharge patient to home hospice Time Spent in Patient Care: Greater than 35 minutes (>than 50% of time sp ent in counselling and/or direct pt care on unit) . Coding Level of Care Code 88037 Diagnoses Pulmonary embolism I26.99 Pneumothorax ex vacuo J93.83 Large pleural effusion J90 Malignant neoplasm of sigmoid colon C18.7 Counseling regarding advance directives and goals of care Z71.89 Time Spent (min) 57
[2023-04-06] VITALS (10 sets, daily range): BP systolic 105–125; BP diastolic 74–86; PULSE 50–95; RESP 19–27; TEMP 36.4–36.7; O2SAT 85–96
[2023-04-06] MEDS: heparin drip 25,000 UNIT/500 ML PREMIX 19 UNIT IV (00:54)
[2023-04-06 02:54] LABS: Basophils # 0.1 10^3/uL (0.0-0.1); Basophils % 0.6 %; Eosinophils # 0.3 10^3/uL (0.0-0.8); Eosinophils % 3.4 %; Hematocrit 47.5 % (42.0-52.0); Hemoglobin 15.4 g/dL (11.7-16.6); Lymphocytes % 10.7 %; Mean Corpuscular HGB Conc 32.4 g/dL (30.0-36.0); Mean Corpuscular Hemoglobin 29.3 pg (28.0-34.0); Mean Corpuscular Volume 90.3 fl (80-94); Mean Platelet Volume 9.4 fL (7.4-10.4); Monocytes # 1.1 10^3/uL (0.2-0.9); Monocytes % 11.7 %; Neutrophils % 73.2 %; Nucleated Red Blood Cells % 0 %; Platelet Count 460 10^3/cmm (130-400); Red Blood Count 5.26 10^6/uL (4.1-5.3); Red Cell Distribution Width 15.9 % (12.1-15.1); White Blood Count 9.6 10^3/uL (4.0-10.0)
[2023-04-06 03:12] LABS: Partial Thromboplastin Time 79.5 SECONDS (23.9-36.7)
[2023-04-06 03:23] LABS: Alanine Aminotransferase < 5 U/L (0-41); Albumin Level 2.4 g/dL (3.5-5.2); Alkaline Phosphatase 110 U/L (40-130); Aspartate Amino Transferase 10 U/L (0-40); Blood Urea Nitrogen 9 mg/dL (8-23); Calcium 8.4 mg/dL (8.5-10.5); Carbon Dioxide 24 mmol/L (22-29); Chloride 99 mmol/L (98-107); Glomerular Filtration Rate 216.6 mL/min (90-130); Glucose 81 mg/dL (65-115); Osmolality Calculated 278 mOsm/kg (285-295); Sodium 135 mmol/L (136-145); Total Bilirubin 0.5 mg/dL (0.15-1.2); Total Protein 5.4 g/dL (6.6-8.7)
[2023-04-06] MEDS: piperacillin-tazobactam 3.375 GM in sodium chloride 0.9% (plus) 50 ML IV ×3 (03:47→19:49)
[2023-04-06] MEDS: calcium carbonate 500 mg Chew Tablet PO ×2 (03:47→19:04)
--- NOTE | 2023-04-06 06:00 | XRR_ITS ---
PROCEDURE INFORMATION: Exam: XR Chest Exam date and time: 04/06/2023 9:53 AM Age: 62 years old Clinical indication: Shortness of breath; Additional info: Pleural effusion TECHNIQUE: Imaging protocol: Radiologic exam of the chest. Views: 1 view. COMPARISON: CR XR chest 1V portable [id number] 04/05/2023 9:04 AM FINDINGS: Lungs: The right lung is unremarkable and well expanded a. No consolidation. Pleural spaces: Unremarkable. No pleural effusion. Large left lung pneumothorax. This finding is stable since prior examinations. Heart/Mediastinum: Unremarkable. No cardiomegaly. Bones/joints: Unremarkable. A left central line is present extending into the SVC. XR/XR chest 1V portable [id number] IMPRESSION: 1. Stable large left lung pneumothorax. 2. Stable left central line in the SVC
[2023-04-06] MEDS: pantoprazole DR 40 mg Tablet PO (09:07)
[2023-04-06] MEDS: ALPRAZolam 0.5 mg Tablet 1 MG PO ×2 (09:07→19:04)
[2023-04-06 10:48] LABS: Partial Thromboplastin Time 59.3 SECONDS (23.9-36.7)
--- NOTE | 2023-04-06 10:51 | PC.NURSE ---
Last PTT was 58.3- no change in the heparin drip
--- NOTE | 2023-04-06 17:36 | P.PN_ITS ---
Subjective Subjective: Patient was seen and examined this morning states he fells better,xray chest done this morning showed stable large rt sided PTX.H&H Stable on heparin drip. Medications: Medication Review Details: Generic Name Dose Route Start Last Admin Trade Name Freq PRN Reason Stop Dose Admin Alprazolam 1 mg 04/04/23 18:51 04/06/23 09:07 Alprazolam 0.5 M g Tablet PO 1 mg TID PRN Administration ANXIETY Calcium Carbonate 500 mg 04/05/23 17:29 04/06/23 03:47 Calcium Carbonat e 500 Mg Chew Tabl et PO 500 mg Q4H PRN Administration INDIGESTION Heparin Sodium (Po rcine) 0 unit 04/04/23 17:33 04/05/23 13:07 Heparin 5,000 Un it/Ml Inj 1 Ml IV 1,600 unit PRN PRN Administration Heparin weight-ba se protocol Protocol Heparin Sodium/Sod ium Chloride 25,000 unit in 50 0 mls @ 0 mls/hr 04/04/23 18:30 04/06/23 04:22 Heparin Drip IV 10.59 unit/kg/hr .Q0M TIMMY 17 mls/hr Titration Protocol Per Protocol Piperacillin Sod/T azobactam 50 mls @ 12.5 mls /hr 04/04/23 20:00 04/06/23 16:24 Sod 3.375 gm/ So dium Chloride IV Infused Q8H TIM[facility] Infusion Protocol Pantoprazole Sodiu m 40 mg 04/05/23 18:05 04/06/23 09:[address] 40 Mg Tablet PO 40 mg DAILY TIMMY Administration Vitals/I&O/Wt Last Vital Signs Temp 98.0 F 04/06/23 16:00 Pulse 91 04/06/23 16:00 Resp 24 H 04/06/23 16:00 BP 105/79 04/06/23 16:00 Pulse Ox 89 L 04/06/23 16:00 O2 Del Method Nasal Cannula 04/06/23 16:00 O2 Flow Rate 1 04/06/23 07:54 04/06/23 04/06/23 04/06/23 06:59 14:59 22:59 Intake Total 315.867 / 1795.867 350 / 350 50 / 400 Balance 315.867 / 1795.867 350 / 350 50 / 400 Physical Exam Const: COMMON NORMALS: patient oriented x3 HENMT: COMMON NORMALS: normocephalic and atraumatic HEAD & SCALP: normocephalic and atraumatic Resp: COMMON NORMALS: clear to auscultation bilaterally AUSCULTATION: clear to auscultation bilaterally OTHER: Diminished air entry in left lung field Cardio: COMMON NORMALS: regular rate, regular rhythm, S1 normal heart sound present, S2 normal heart sound present, No gallops present (Cardio), No murmurs present (Cardio), No rub (Cardio) and Peripheral pulses 2+ throughout RATE: regular rate RHYTHM: regular rhythm HEART SOUNDS: S1 normal heart sound present and S2 normal heart sound present PERIPHERAL PULSES: Peripheral pulses 2+ throughout GI: COMMON NORMALS: Normal to inspection, nondistended, normoactive bowel sounds present, Soft to palpation, non-tender, No hepatosplenomegaly present and no masses AUSCULTATION: Yes normoactive bowel sounds PALPATION: Yes Soft to palpation and Yes No hepatosplenomegaly present RECTAL EXAM: Yes deferred Extremity: COMMON NORMALS: no clubbing, cyanosis or edema and no pedal edema Neuro: COMMON NORMALS: patient oriented x3 Data 04/06/23 02:44 04/06/23 02:44 Micro: Microbiology 04/04/23 18:56 Gram Stain - Final Pleural Fluid Anaerobic Culture - Preliminary Body Fluid Culture - Preliminary A&P Assessment and plan (1) Pulmonary embolism: (2) Pleural effusion: Plan 62 year old male with past medical history of metastatic colon cancer came in today with chief complaint of worsening shortness of breath for last several weeks.Denied any fever cough, chest pain. CTA chest done: Has shown pulmonary embolism, as well as large LT -sided, pleural effusion, and moderate Right-sided pleural effusion, s/p left-sided thoracentesis, with removal of 2 L straw-colored fluid, pending pleural fluid analysis ,post thoracentesis chest x- ray has shown, Large left pneumothorax. Assessment: Acute pulmonary embolism: CT angio chest PE protcl: Acute pulmonary embolus with multiple filling defects in the segmental and subsegmental pulmonary arteries bilaterally consistent with moderate embolus burden.Thin bridging septated saddle embolus. Main pulmonary pulmonary arteries remain patent. Cardiac 2D echo: The echo results have been reviewed,The left ventricle appears to be normal in size and function in this view.? Diastolic function cannot be ?determined.? No obvious wall motion disturbances. The right ventricle appears normal in size and function.? ?Pulmonary artery pressure rough estimate is 50 mmHg. Poor quality study. lower extremity Doppler vein:Mobile Partially occlusive thrombus DVT LEFT common femoral. Currently patient has been started on heparin drip Plan to switch over to Eliquis on discharge. DVT: lower extremity Doppler vein:Mobile Partially occlusive thrombus DVT LEFT common femoral. Currently on heparin drip Large left-sided malignant pleural effusion: Status post left-sided thoracentesis, with removal of 2 L straw-colored fluid Fluid analysis is consistent with exudative pleural effusion.Pleural fluid is positive for malignant cells. Pulmonary on board. Empirically on Zosyn Large left-sided pneumothorax:Possible trapped lung in the setting of malignant pleural effusion.r/o other causes. Monitor serial chest x-ray Pulmonary on board CODE STATUS: Full code DVT prophylaxis not needed on therapeutic anticoagulation with heparin Attestations Medical Necessity Statement*: Needs to be in hospital for the management of p/e,as well as for monitoring of xray chest for reported large lt ptx Coding Level of Care Code Acute Code for [facility] Fwd Diagnoses Pulmonary embolism I26.99 Pleural effusion J90
[2023-04-06 19:19] LABS: Partial Thromboplastin Time 45.5 SECONDS (23.9-36.7)
[2023-04-06] MEDS: heparin 5,000 unit/mL INJ 1 mL IV (19:49)
[2023-04-07] VITALS (10 sets, daily range): BP systolic 110–129; BP diastolic 82–90; PULSE 85–97; RESP 20–27; TEMP 36.6–37.1; O2SAT 84–91
--- NOTE | 2023-04-07 00:19 | PC.NURSE ---
Assisted patient up to bathroom. Noted patient has abrasions to right and left back. Patient stated, I caught the back of the commode as I went to set down. Patient denies pain no bleeding observed. Will continue to monitor.
[2023-04-07 02:36] LABS: Basophils # 0.1 10^3/uL (0.0-0.1); Basophils % 0.7 %; Eosinophils # 0.4 10^3/uL (0.0-0.8); Eosinophils % 4.3 %; Hematocrit 49.5 % (42.0-52.0); Hemoglobin 16.1 g/dL (11.7-16.6); Lymphocytes # 0.8 10^3/uL (0.8-4.8); Lymphocytes % 8.9 %; Mean Corpuscular HGB Conc 32.5 g/dL (30.0-36.0); Mean Corpuscular Hemoglobin 29.9 pg (28.0-34.0); Mean Corpuscular Volume 91.8 fl (80-94); Mean Platelet Volume 9.7 fL (7.4-10.4); Monocytes # 1.3 10^3/uL (0.2-0.9); Monocytes % 13.9 %; Neutrophils # 6.72 10^3/uL (1.8-7.7); Neutrophils % 71.9 %; Nucleated Red Blood Cells % 0 %; Platelet Count 468 10^3/cmm (130-400); Red Blood Count 5.39 10^6/uL (4.1-5.3); Red Cell Distribution Width 16.2 % (12.1-15.1); White Blood Count 9.4 10^3/uL (4.0-10.0)
[2023-04-07 02:49] LABS: Partial Thromboplastin Time 64.3 SECONDS (23.9-36.7)
[2023-04-07 02:51] LABS: Alanine Aminotransferase < 5 U/L (0-41); Albumin Level 2.6 g/dL (3.5-5.2); Alkaline Phosphatase 116 U/L (40-130); Anion Gap 15.1 (5-19); Aspartate Amino Transferase 10 U/L (0-40); Blood Urea Nitrogen 7 mg/dL (8-23); Carbon Dioxide 26 mmol/L (22-29); Chloride 100 mmol/L (98-107); Glomerular Filtration Rate 167.4 mL/min (90-130); Glucose 92 mg/dL (65-115); Osmolality Calculated 282 mOsm/kg (285-295); Potassium 4.1 mmol/L (3.5-5.1); Sodium 137 mmol/L (136-145); Total Bilirubin 0.5 mg/dL (0.15-1.2); Total Protein 5.6 g/dL (6.6-8.7)
[2023-04-07] MEDS: heparin drip 25,000 UNIT/500 ML PREMIX 19 UNIT IV (03:21)
[2023-04-07] MEDS: piperacillin-tazobactam 3.375 GM in sodium chloride 0.9% (plus) 50 ML IV ×3 (03:21→20:33)
--- NOTE | 2023-04-07 06:00 | XRR_ITS ---
PROCEDURE INFORMATION: Exam: XR Chest Exam date and time: 04/07/2023 7:49 AM Age: 62 years old Clinical indication: Condition or disease; Lung condition and disease; Pneumothorax TECHNIQUE: Imaging protocol: Radiologic exam of the chest. Views: 1 view. COMPARISON: 1. CR (CHEST, ) 04/06/2023 9:53 AM 2. CR XR chest 1V portable [id number] 04/05/2023 9:04 AM 3. CR (CHEST, ) 04/04/2023 8:08 PM 4. CR (CHEST, ) 04/04/2023 7:[address] angio chest PE protcl [id number] 04/04/2023 4:52 PM FINDINGS: Tubes, catheters and devices: The left-sided intravenous chest port noted with the distal tip in the lower SVC. Lungs: The lung parenchyma is clear. Pleural spaces: Persistent left-sided hydropneumothorax without significant change from prior exams. Mild blunting of the right costophrenic angle consistent with small pleural effusion. Heart/Mediastinum: The cardiomediastinal silhouette is within normal limits. Bones/joints: Unremarkable. XR/XR chest 1V portable [id number] IMPRESSION: 1. Persistent left-sided hydropneumothorax without significant change from prior exams. 2. Small right-sided pleural effusion.
[2023-04-07] MEDS: pantoprazole DR 40 mg Tablet PO (08:11)
[2023-04-07] MEDS: ALPRAZolam 0.5 mg Tablet 1 MG PO ×3 (08:11→20:34)
[2023-04-07 11:05] LABS: Partial Thromboplastin Time 46.8 SECONDS (23.9-36.7)
[2023-04-07] MEDS: heparin 5,000 unit/mL INJ 1 mL IV (11:43)
[2023-04-07] MEDS: calcium carbonate 500 mg Chew Tablet PO ×3 (12:39→20:44)
--- NOTE | 2023-04-07 16:04 | P.PN_ITS ---
Subjective Subjective: Feels better no significant shortness of breath, chest x-ray is unchanged. Medications: Medication Review Details: Generic Name Dose Route Start Last Admin Trade Name Freq PRN Reason Stop Dose Admin Alprazolam 1 mg 04/04/23 18:51 04/07/23 14:36 Alprazolam 0.5 M g Tablet PO 1 mg TID PRN Administration ANXIETY Calcium Carbonate 500 mg 04/05/23 17:29 04/07/23 12:39 Calcium Carbonat e 500 Mg Chew Tabl et PO 500 mg Q4H PRN Administration INDIGESTION Heparin Sodium (Po rcine) 0 unit 04/04/23 17:33 04/07/23 11:43 Heparin 5,000 Un it/Ml Inj 1 Ml IV 1,600 unit PRN PRN Administration Heparin weight-ba se protocol Protocol Heparin Sodium/Sod ium Chloride 25,000 unit in 50 0 mls @ 0 mls/hr 04/04/23 18:30 04/07/23 11:44 Heparin Drip IV 14.32 unit/kg/hr .Q0M TIMMY 23 mls/hr Titration Protocol Per Protocol Piperacillin Sod/T azobactam 50 mls @ 12.5 mls /hr 04/04/23 20:00 04/07/23 15:51 Sod 3.375 gm/ So dium Chloride IV Infused Q8H [facility] Infusion Protocol Pantoprazole Sodiu m 40 mg 04/07/23 09:00 04/07/23 11:57 Pantoprazole 40 Mg Sdv IVP Not Given BID [facility] Vitals/I&O/Wt Last Vital Signs Temp 98.8 F 04/07/23 12:48 Pulse 92 04/07/23 14:00 Resp 27 H 04/07/23 12:48 BP 120/89 04/07/23 12:48 Pulse Ox 89 L 04/07/23 12:48 O2 Del Method Nasal Cannula 04/07/23 12:48 O2 Flow Rate 5 04/07/23 12:48 04/07/23 04/07/23 04/07/23 06:59 14:59 22:59 Intake Total 394.083 / 1295.883 685.283 / 685.283 50 / 735.283 Balance 394.083 / 1295.883 685.283 / 685.283 50 / 735.283 Physical Exam Const: COMMON NORMALS: patient oriented x3 HENMT: COMMON NORMALS: normocephalic and atraumatic HEAD & SCALP: normocephalic and atraumatic Resp: COMMON NORMALS: clear to auscultation bilaterally AUSCULTATION: clear to auscultation bilaterally OTHER: Diminished air entry in left lung field Cardio: COMMON NORMALS: regular rate, regular rhythm, S1 normal heart sound present, S2 normal heart sound present, No gallops present (Cardio), No murmurs present (Cardio), No rub (Cardio) and Peripheral pulses 2+ throughout RATE: regular rate RHYTHM: regular rhythm HEART SOUNDS: S1 normal heart sound present and S2 normal heart sound present PERIPHERAL PULSES: Peripheral pulses 2+ throughout GI: COMMON NORMALS: Normal to inspection, nondistended, normoactive bowel sounds present, Soft to palpation, non-tender, No hepatosplenomegaly present and no masses AUSCULTATION: Yes normoactive bowel sounds PALPATION: Yes Soft to palpation and Yes No hepatosplenomegaly present RECTAL EXAM: Yes deferred Extremity: COMMON NORMALS: no clubbing, cyanosis or edema and no pedal edema Neuro: COMMON NORMALS: patient oriented x3 Data 04/07/23 02:15 04/07/23 02:15 Micro: Microbiology 04/04/23 18:56 Gram Stain - Final Pleural Fluid Anaerobic Culture - Preliminary Body Fluid Culture - Final A&P Assessment and plan (1) Pulmonary embolism: (2) Pleural effusion: Plan 62 year old male with past medical history of metastatic colon cancer came in today with chief complaint of worsening shortness of breath for last several weeks.Denied any fever cough, chest pain. CTA chest done: Has shown pulmonary embolism, as well as large LT -sided, pleur al effusion, and moderate Right-sided pleural effusion, s/p left-sided thoracentesis, with removal of 2 L straw-colored fluid, pending pleural fluid analysis ,post thoracentesis chest x- ray has shown, Large left pneumothorax. Assessment: Acute pulmonary embolism: CT angio chest PE protcl: Acute pulmonary embolus with multiple filling defects in the segmental and subsegmental pulmonary arteries bilaterally consistent with moderate embolus burden.Thin bridging septated saddle embolus. Main pulmonary pulmonary arteries remain patent. Cardiac 2D echo: The echo results have been reviewed,The left ventricle appears to be normal in size and function in this view.? Diastolic function cannot be ?determined.? No obvious wall motion disturbances. The right ventricle appears normal in size and function.? ?Pulmonary artery pressure rough estimate is 50 mmHg. Poor quality study. lower extremity Doppler vein:Mobile Partially occlusive thrombus DVT LEFT common femoral. Currently patient has been started on heparin drip Plan to switch over to Eliquis on discharge. DVT: lower extremity Doppler vein:Mobile Partially occlusive thrombus DVT LEFT common femoral. Currently on heparin drip Large left-sided malignant pleural effusion: Status post left-sided thoracentesis, with removal of 2 L straw-colored fluid Fluid analysis is consistent with exudative pleural effusion.Pleural fluid is positive for malignant cells. Pulmonary on board. Empirically on Zosyn Large left-sided pneumothorax:Possible trapped lung in the setting of malignant pleural effusion.r/o other causes. Monitor serial chest x-ray Pulmonary on board: They intend to do bronchoscopy , if the lungs fails to expa nd. CODE STATUS: Full code DVT prophylaxis not needed on therapeutic anticoagulation with heparin Attestations Medical Necessity Statement*: Needs to be in hospital for management of acute pulmonary embolism. Coding Level of Care Code Acute Code for [facility] Fwd Diagnoses Pulmonary embolism I26.99 Pleural effusion J90
[2023-04-07] MEDS: pantoprazole 40 mg SDV IVP (17:34)
[2023-04-07 18:46] LABS: Partial Thromboplastin Time 88.1 SECONDS (23.9-36.7)
[2023-04-08] VITALS (9 sets, daily range): BP systolic 101–130; BP diastolic 74–84; PULSE 91–121; RESP 20–34; TEMP 36.4–36.8; O2SAT 87–90
[2023-04-08] MEDS: calcium carbonate 500 mg Chew Tablet PO (00:23)
[2023-04-08 01:31] LABS: Partial Thromboplastin Time 47.4 SECONDS (23.9-36.7)
[2023-04-08] MEDS: heparin 5,000 unit/mL INJ 1 mL IV (02:22)
[2023-04-08] MEDS: heparin drip 25,000 UNIT/500 ML PREMIX 22 UNIT IV (03:42)
[2023-04-08] MEDS: piperacillin-tazobactam 3.375 GM in sodium chloride 0.9% (plus) 50 ML IV (03:42)
[2023-04-08 04:41] LABS: Basophils # 0.1 10^3/uL (0.0-0.1); Basophils % 0.9 %; Eosinophils # 0.4 10^3/uL (0.0-0.8); Eosinophils % 3.7 %; Hematocrit 50.6 % (42.0-52.0); Hemoglobin 16.1 g/dL (11.7-16.6); Lymphocytes # 1.4 10^3/uL (0.8-4.8); Lymphocytes % 13.9 %; Mean Corpuscular HGB Conc 31.8 g/dL (30.0-36.0); Mean Corpuscular Hemoglobin 29.4 pg (28.0-34.0); Mean Corpuscular Volume 92.3 fl (80-94); Mean Platelet Volume 10.1 fL (7.4-10.4); Monocytes # 1.3 10^3/uL (0.2-0.9); Monocytes % 12.7 %; Neutrophils # 6.85 10^3/uL (1.8-7.7); Neutrophils % 68.5 %; Nucleated Red Blood Cells % 0 %; Platelet Count 515 10^3/cmm (130-400); Red Blood Count 5.48 10^6/uL (4.1-5.3); Red Cell Distribution Width 15.9 % (12.1-15.1)
[2023-04-08 04:56] LABS: Alanine Aminotransferase < 5 U/L (0-41); Albumin Level 2.6 g/dL (3.5-5.2); Alkaline Phosphatase 114 U/L (40-130); Anion Gap 15.4 (5-19); Aspartate Amino Transferase 10 U/L (0-40); Blood Urea Nitrogen 7 mg/dL (8-23); Calcium 9.5 mg/dL (8.5-10.5); Carbon Dioxide 24 mmol/L (22-29); Chloride 100 mmol/L (98-107); Globulin 3.2 g/dL (1.3-4.6); Glomerular Filtration Rate 167.4 mL/min (90-130); Glucose 85 mg/dL (65-115); Osmolality Calculated 277 mOsm/kg (285-295); Potassium 4.4 mmol/L (3.5-5.1); Sodium 135 mmol/L (136-145); Total Bilirubin 0.5 mg/dL (0.15-1.2); Total Protein 5.8 g/dL (6.6-8.7)
--- NOTE | 2023-04-08 05:00 | XR_ITS ---
WS: [id number] EXAMINATION: XR chest 1V portable [id number] REASON FOR EXAM: lt PTX EVALUATION COMPARISON: 04/07/2023 ORDER DATE: 04/08/2023 4:56 AM TECHNIQUE: A single, portable frontal chest x-ray was obtained. FINDINGS: Tubes, catheters and devices: The left-sided intravenous chest port noted with the distal tip in the lower SVC. Lungs: The lung parenchyma is clear. Pleural spaces: Persistent left-sided hydropneumothorax without significant change from prior exams. Mild blunting of the right costophrenic angle consistent with small pleural effusion. Heart/Mediastinum: The cardiomediastinal silhouette is within normal limits. Bones/joints: Unremarkable. XR/XR chest 1V portable [id number] IMPRESSION: 1. Persistent left-sided hydropneumothorax without significant change from prior exams. 2. Small right-sided pleural effusion.
--- NOTE | 2023-04-08 07:18 | CT_ITS ---
WS: [id number] CT CHEST TECHNIQUE: Noncontrast CT of the chest with coronal and sagittal reformatted images. CLINICAL INFORMATION: SOB, changes in xray COMPARISON: Radiographs 04/08/2023 and 04/07/2023 DLP: 494.[address] scans at [facility] use at least one of these dose optimization techniques: automated e xposure control; mA and/or kV adjustment per patient size (includes targeted exams where dose is matc hed to clinical indication); or iterative reconstruction. FINDINGS: Large LEFT pneumothorax similar in appearance to the recent radiographs. Interval increase in the LEF T pleural effusion compared to the prior postthoracentesis images compatible with hydropneumothorax. Persistent retraction of the LEFT lung along the LEFT hilum and mediastinum. No significant mediastin al shift. Moderate RIGHT pleural effusion is stable. Compressive atelectasis RIGHT lower lobe. Previously descr ibed hazy opacity RIGHT upper lobe appears slightly improved and may represent pulmonary infarct as p reviously described. Patchy opacities along the RIGHT fissure unchanged in appearance. RIGHT and LEFT mainstem bronchi are patent. No proximal endobronchial lesions. LEFT lung is collapsed along the LEFT hilum with air bronchograms. Small amount of upper abdominal ascites partially visualized. Mild diffuse body wall anasarca. Adrena l glands are normal. Normal GE junction. Air-fluid level in the midesophagus. Mild distention of the esophagus. CT/CT chest wo con [id number] IMPRESSION: 1. Persistent LEFT hydropneumothorax with recurrent moderate LEFT pleural effu jon. 2. LEFT lung is retracted along the LEFT hilum. Proximal main stem bronchi jyoti ear patent. 3. Moderate RIGHT pleural effusion is stable. RIGHT basilar atelectasis. 4. Groundglass opacity possible pulmonary infarct in the RIGHT upper lobe appe ars improved. 5. Mild upper abdominal ascites partially visualized. Diffuse body wall anasar ca. 6. Mild distention of the thoracic esophagus with air-fluid level in the mides ophagus. Patient at risk for aspiration. 7. No other significant interval changes. Discussed with Stevo Marks MD at 04/08/2023 9:07 AM.
[2023-04-08] MEDS: ALPRAZolam 0.5 mg Tablet 1 MG PO ×2 (07:38→13:55)
[2023-04-08] MEDS: FUROsemide 40 mg Tablet PO (08:51)
--- NOTE | 2023-04-08 12:56 | P.PN_ITS ---
Subjective Subjective: Patient became more dyspneic this morning and needed to be placed on heated high flow nasal cannula, currently FiO2 at 100% 50 L/min. CT chest was repeated which showed a persistent left hydropneumothorax with recurrent moderate left pleural effusion. Patient has elected to proceed with hospice care at this time. Medications: Reviewed: Yes Vitals/I&O/Wt Last Vital Signs Temp 97.8 F 04/08/23 12:00 Pulse 97 04/08/23 12:00 Resp 34 H 04/08/23 12:00 BP 101/82 04/08/23 12:00 Pulse Ox 87 L 04/08/23 12:00 O2 Del Method High Flow Nasal Cannula 04/08/23 12:00 O2 Flow Rate 50 04/08/23 08:34 FiO2 100 04/08/23 08:34 04/07/23 04/08/23 04/08/23 22:59 06:59 14:59 Intake Total 470.167 / 1155.450 890.550 / 2046.000 133.233 / 133.233 Output Total Balance 470.167 / 1155.450 889.550 / 2045.000 133.233 / 133.233 Physical Exam Narrative: Not examined for patient comfort, goals of care are to transition to hospice care only. Data 04/08/23 04:04 04/08/23 04:04 Micro: Microbiology 04/04/23 18:56 Gram Stain - Final Pleural Fluid Anaerobic Culture - Preliminary Body Fluid Culture - Final A&P Assessment and plan (1) Pulmonary embolism: (2) Pleural effusion: Plan 62 year old male with past medical history of metastatic colon cancer admitted for worsening shortness of breath for last several weeks. Complicated hospital course as follows. # Acute pulmonary embolism: CT chest: Acute pulmonary embolus with multiple filling defects in the segmental and subsegmental pulmonary arteries bilaterally consistent with moderate embolus burden.Thin bridging septated saddle embolus. Currently on a/c with heparin, on hold for possible Pleurex catheter placement lower extremity Doppler vein:Mobile Partially occlusive thrombus DVT LEFT common femoral. Plan to switch over to Eliquis on discharge if patient wishes to continue while on hospice. # Large left-sided malignant pleural effusion: Status post left-sided thoracentesis, with removal of 2 L straw-colored fluid Fluid analysis is consistent with malignant cells. Gram sstain and cx negative D/c Abx Patient's malignant pleural effusion was discussed extensively between city supervisor and oncology this morning. Overall patient has extremely poor prognosis given progression of the cancer on chemotherapy. After extensive goals of care discussion this morning with the patient, he has elected to proceed with hospice care. He may get a Pleurx catheter for palliative purposes. Add morphine for pain management and palliation Large left-sided pneumothorax:Possible trapped lung in the setting of malignant pleural effusion.r/o other causes. Monitor serial chest x-ray bronchoscopy now deferred due to GOC changed to hospice care only CODE STATUS: DNR/DNI DVT prophylaxis : on therapeutic a/c Attestations Medical Necessity Statement*: GOC discussion, end of life care discussions. transition to hospice management, possible pleurex placement usman today Coding Level of Care Code Acute Code for Chg Fwd High MDM includes number and complexity of problems actively addressed during encounter, amount and/or complexity of data reviewed/ordered and described risk of complication, morbidity or mortality of management as documented Diagnoses Pulmonary embolism I26.99 Pleural effusion J90
[2023-04-08] MEDS: morphine 4 mg/mL SDV 1 mL 2 MG IVP (17:04)
--- NOTE | 2023-04-08 20:26 | P.PN_ITS ---
Subjective Subjective: Patient did well over weekend-however Saturday night he became more dyspneic requiring increasing oxygen supplementation This morning and needed to be placed on heated high flow nasal cannula, curre ntly FiO2 at 100% 50 L/min. CT chest was repeated which showed a persistent left hydropneumothorax with recurrent moderate left pleural effusion. Bedside ultrasound showed posteriorly located pocket but it is far less than admission pleural effusion-which makes it sole contributor and causing his worsening respiratory status. Although he is on heparin drip-he had a PE in pulmonary main trunk which was thin bridging septated saddle embolus which may also be contributing to his shortness of ace ath. Additionally pathologist reported pleural fluid showing malignant cells- cellblock was sent out to run IHC's and obtain more information about the histological type of malignancy. Despite draining 2 L of fluid-not expansion of left lung-with 60 to 70% of pneumo ex vacuo-raises high likelihood of endobronchial metastatic/primary lesion for which I had earlier discussed with patient and family about possible bronchoscopic evaluation and biopsies once he is clinically stable. I have discussed pleural fluid cytology results over phone with Dr. Brar over phone, patient's oncologist, who reported that patient's metastatic colon cancer unfortunately did not respond to treatments and with malignant cells in pleural effusion-he opined that patient's underlying cancer may be worsening and u nfortunately we do not have encouraging treatments at this point. He recommended to have goals of care discussion including hospice/comfort care with the patient. After having extensive goals of care discussion with patient, his , his daughter, and son-in-law and patient opted for hospice care and family agreed with his decision. He requested to go to home hospice. Medications: Reviewed: Yes Medication Review Details: Generic Name Dose Route Start Last Admin Trade Name Freq PRN Reason Stop Dose Admin Alprazolam 1 mg 04/04/23 18:51 04/07/23 14:36 Alprazolam 0.5 M g Tablet PO 1 mg TID PRN Administration ANXIETY Calcium Carbonate 500 mg 04/05/23 17:29 04/07/23 12:39 Calcium Carbonat e 500 Mg Chew Tabl et PO 500 mg Q4H PRN Administration INDIGESTION Heparin Sodium (Po rcine) 0 unit 04/04/23 17:33 04/07/23 11:43 Heparin 5,000 Un it/Ml Inj 1 Ml IV 1,600 unit PRN PRN Administration Heparin weight-ba se protocol Protocol Heparin Sodium/Sod ium Chloride 25,000 unit in 50 0 mls @ 0 mls/hr 04/04/23 18:30 04/07/23 11:44 Heparin Drip IV 14.32 unit/kg/hr .Q0M TIMMY 23 mls/hr Titration Protocol Per Protocol Piperacillin Sod/T azobactam 50 mls @ 12.5 mls /hr 04/04/23 20:00 04/07/23 15:51 Sod 3.375 gm/ So dium Chloride IV Infused Q8H [facility] Infusion Protocol Pantoprazole Sodiu m 40 mg 04/07/23 09:00 04/07/23 11:57 Pantoprazole 40 Mg Sdv IVP Not Given BID [facility] Vitals/I&O/Wt Last Vital Signs Temp 97.8 F 04/08/23 12:00 Pulse 91 04/08/23 17:52 Resp 20 H 04/08/23 17:52 BP 101/82 04/08/23 12:00 Pulse Ox 90 04/08/23 17:52 O2 Del Method High Flow Nasal Cannula 04/08/23 12:00 O2 Flow Rate 60 04/08/23 17:52 FiO2 100 04/08/23 17:52 04/08/23 04/08/23 04/08/23 06:59 14:59 22:59 Intake Total 890.550 / 2046.000 133.233 / 133.233 120 / 253.233 Output Total Balance 889.550 / 2045.000 133.233 / 133.233 120 / 253.233 Physical Exam Narrative: General: alert, NAD HEENT: conj clear, EOMI, PERRL, mmm, Neck: supple, no meningismus Heme: no cervical LAP Respiratory: : Reduced breath sounds on left side of the chest Cardiovascular: rrr, nl s1s2, no mrg Abdomen: soft, nt, nd, no r/g, bs+ Extremities: pulses +, no edema, no c/c : no CVA tenderness Skin: intact, no rash MSK: no back or neck pain Neurologic: grossly intact Data 04/08/23 04:04 04/08/23 04:04 Micro: Microbiology 04/04/23 18:56 Gram Stain - Final Pleural Fluid Anaerobic Culture - Preliminary Body Fluid Culture - Final A&P Assessment and plan (1) Pulmonary embolism: Patient opted for comfort care (2) Pneumothorax ex vacuo: 60% air seen in left pleural cavity after draining 2 L of pleural effusion with no tension-initially he reported improvement in breathing after thoracentesis Postprocedure chest x-ray did not show any lung expansion-suspect this is pneumothorax ex vacuo We do not know how long the effusion has been there causing left lung collapse- Other plausible reason is endobronchial lesion from possible metastatic colon cancer causing left lung atelectasis-and all the pleural fluid accumulated could be related to negative pressure from collapsed lung. There was plan to do bronchoscopic evaluation-however patient deteriorated over the weekend with worsening respiratory status requiring high flow nasal cannula 50 L 100% and reaccumulation of left-sided hydropneumothorax. Pleural effusion showing malignant cells-suggestive of rapidly accumulating malignant pleural effusion and treatment failed metastatic colon cancer patient Patient opted for comfort care-had discussion about placing Pleurx catheter for symptomatic relief-however given his rapid clinical deterioration with advanced metastatic cancer and anticipated mortality not more than a week given his 50 L 100% requirement of high flow nasal cannula-I do not think Pleurx catheter will be of any benefit at this point of time. However when I checked with ultrasound the effusion was more posteriorly loculated which is not an ideal place to put a Pleurx catheter as well. With all these considerations-patient prefer not to have any more procedures as well. (3) Large pleural effusion: S/p thoracentesis 2 L straw-colored fluid is removed Pleural fluid analysis showed lymphocyte predominant exudative fluid Cytology showed malignant cells Patient opted for comfort care (4) Malignant neoplasm of sigmoid colon: Diagnosed 2020-s/p multiple resections s/p multiple recurrences s/p chemo therapy-follows up with oncology as outpatient (5) Counseling regarding advance directives and goals of care: Patient opted for comfort care Attestations Medical Necessity Statement*: Opted for comfort care Coding Level of Care Code 28433 Diagnoses Pulmonary embolism I26.99 Pneumothorax ex vacuo J93.83 Large pleural effusion J90 Malignant neoplasm of sigmoid colon C18.7 Counseling regarding advance directives and goals of care Z71.89 Time Spent (min) 23
[2023-04-08] MEDS: lanolin oint 7 gm 1 APPLIC TOPICAL (20:34)
[2023-04-08] MEDS: dronabinol 2.5 mg Capsule 10 MG PO (20:34)
[2023-04-09 02:02] VITALS: PULSE 96; RESP 22; O2SAT 87
[2023-04-09] MEDS: ALPRAZolam 0.5 mg Tablet 1 MG PO (05:45)
[2023-04-09 08:13] VITALS: BP 125/87; PULSE 86; RESP 19; TEMP 36.4; O2SAT 94
[2023-04-09 08:50] VITALS: PULSE 98; RESP 20; O2SAT 91
[2023-04-09] MEDS: pantoprazole 40 mg SDV IVP (08:55)
[2023-04-09] MEDS: dronabinol 2.5 mg Capsule 10 MG PO ×2 (08:55→13:14)
[2023-04-09 11:49] VITALS: BP 107/75; PULSE 95; RESP 18; TEMP 36.6; O2SAT 90
--- NOTE | 2023-04-09 12:15 | PC.NURSE ---
Discussed discharge with patient and spouse. Patient going home on hospice so all medications may change. Verbalized understanding.
--- NOTE | 2023-04-09 12:32 | P.DS_ITS ---
Discharge Providers Date of Admission: 04/04/23 18:16 Date of Discharge: April 09, 2023 Attending Provider at Admission: Best Cummings MD Attending Provider at Discharge: Poppy Alston MD Primary Care Provider: Mason Adams MD Diagnoses at Discharge Discharge Diagnosis (1) Pulmonary embolism: Status: Acute (2) Pleural effusion: Status: Acute (3) Malignant neoplasm of sigmoid colon: Status: Acute Reason for Visit Reason for Visit: saddle PE Hospital Course Hospital Course 62 year old male with past medical history of metastatic colon cancer admitted for worsening shortness of breath for last several weeks. Complicated hospital course as follows. # Acute pulmonary embolism: CT chest: Acute pulmonary embolus with multiple filling defects in the segmental and subsegmental pulmonary arteries bilaterally consistent with moderate embolus burden.Thin bridging septated saddle embolus. lower extremity Doppler vein:Mobile Partially occlusive thrombus DVT LEFT common femoral. Received a/c with heparin while he was inpatient with Plan to switch over to Eliquis on discharge; however patient had acute wosrening needing 100% fi02 on HHF on 04/08 following which patient elected to transition to hospice care only at home. A/c was therefore not continued at discharge keeping with his GOC. # Large left-sided malignant pleural effusion Status post left-sided thoracentesis,?with removal of 2 L straw-colored fluid Fluid analysis is consistent with malignant cells. 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 ? Overall patient has extremely poor prognosis given progression of the cancer on chemotherapy.? After extensive goals of care discussion with the patient and his family, he elected to proceed with hospice care. repeat CT on 04/08 showed reaccumulation of pleural fluid without any good window to place pleurex anteriorly or in axillary line He received prn morphine, xanax during npatient, transitioned to comfort pack at discharge with hospice Large left-sided pneumothorax:Possible trapped lung in the setting of malignant pleural effusion.r/o other causes. bronchoscopy now deferred due to GOC changed to hospice care onlyd Physical Exam Narrative: General: No acute distress, AO x3 HEENT: PERRLA, pupils bilaterally equal and reactive, pallors not present Detailed exam not perfromed at discharge to allow for patient comfort. Discharge Data Studies Completed and Pending Completed Studies During Hospitalization Category Date Time Status CT chest wo con [id number] Routine Cat Scan 04/08/23 07:18 Completed CXRP [XR chest 1V portable [id number]] Routine Exams 04/06/23 06:00 Completed CXRP [XR chest 1V portable [id number]] Routine Exams 04/07/23 06:00 Completed CXRP [XR chest 1V portable [id number]] Stat Exams 04/04/23 18:46 Completed XR chest 1V portable [id number] Routine Exams 04/04/23 21:00 Completed XR chest 1V portable [id number] Routine Exams 04/05/23 08:56 Completed XR chest 1V portable [id number] Routine Exams 04/08/23 05:00 Completed XR chest 1V portable [id number] Stat Exams 04/04/23 17:28 [place] [id number] Routine Ultrasound 04/05/23 19:52 Completed CV. echo complete* [id number] Urgent Ultrasound 04/05/23 18:25 Completed Pending at discharge Category Date Time Status Anaerobic Culture Routine Lab 04/04/23 18:56 Results Body Fluid Culture & GS Routine Lab 04/04/23 18:56 Results Fungal Culture not HR/SK/BL Routine Lab 04/04/23 18:56 Received Cytology [PTH] Routine Pth 04/04/23 18:53 Received Radiology Impressions Chest X-Ray 04/08/23 05:00 IMPRESSION: 1. Persistent left-sided hydropneumothorax without significant change from prior exams. 2. Small right-sided pleural effusion. Chest CT 04/08/23 07:18 IMPRESSION: 1. Persistent LEFT hydropneumothorax with recurrent moderate LEFT pleural effusion. 2. LEFT lung is retracted along the LEFT hilum. Proximal main stem bronchi jyoti ear patent. 3. Moderate RIGHT pleural effusion is stable. RIGHT basilar atelectasis. 4. Groundglass opacity possible pulmonary infarct in the RIGHT upper lobe appears improved. 5. Mild upper abdominal ascites partially visualized. Diffuse body wall anasarca. 6. Mild distention of the thoracic esophagus with air-fluid level in the midesophagus. Patient at risk for aspiration. 7. No other significant interval changes. Discussed with Stevo Marks MD at 04/08/2023 9:07 AM. Laboratory Results WBC 10.0 10^3/uL (4.0-10.0) 04/08/23 04:04 RBC 5.48 10^6/uL (4.1-5.3) H 04/08/23 04:04 Hgb 16.1 g/dL (11.7-16.6) 04/08/23 04:04 Hct 50.6 % (42.0-52.0) 04/08/23 04:04 MCV 92.3 fl (80-94) 04/08/23 04:04 MCH 29.4 pg (28.0-34.0) 04/08/23 04:04 MCHC 31.8 g/dL (30.0-36.0) 04/08/23 04:04 RDW 15.9 % (12.1-15.1) H 04/08/23 04:04 Plt Count 515 10^3/cmm (130-400) H 04/08/23 04:04 MPV 10.1 fL (7.4-10.4) 04/08/23 04:04 Neut % (Auto) 68.5 % 04/08/23 04:04 Lymph % (Auto) 13.9 % 04/08/23 04:04 [place] % (Auto) 12.7 % 04/08/23 04:04 Eos % (Auto) 3.7 % 04/08/23 04:04 Baso % (Auto) 0.9 % 04/08/23 04:04 Neut # (Auto) 6.85 10^3/uL (1.8-7.7) 04/08/23 04:04 Lymph # (Auto) 1.4 10^3/uL (0.8-4.8) 04/08/23 04:04 [place]kin # (Auto) 1.3 10^3/uL (0.2-0.9) H 04/08/23 04:04 Eos # (Auto) 0.4 10^3/uL (0.0-0.8) 04/08/23 04:04 Baso # (Auto) 0.1 10^3/uL (0.0-0.1) 04/08/23 04:04 Nucleated RBC % (auto) 0 % 04/08/23 04:04 Nucleated RBCs # 0.0 /100WBC 04/08/23 04:04 Differential Comment Yes 04/04/23 18:56 PT 15.60 SECONDS (12.1-14.9) H 04/05/23 03:38 INR 1.20 (0.8-1.2) 04/05/23 03:38 APTT 47.4 SECONDS (23.9-36.7) H 04/08/23 01:05 Sodium 135 mmol/L (136-145) L 04/08/23 04:04 Potassium 4.4 mmol/L (3.5-5.1) 04/08/23 04:04 Chloride 100 mmol/L (98-107) 04/08/23 04:04 Carbon Dioxide 24 mmol/L (22-29) 04/08/23 04:04 Anion Gap 15.4 (5-19) 04/08/23 04:04 BUN 7 mg/dL (8-23) L 04/08/23 04:04 Creatinine 0.5 mg/dL (0.7-1.2) L 04/08/23 04:04 GFR Calculation 167.4 mL/min (90-130) H 04/08/23 04:04 Glucose 85 mg/dL (65-115) 04/08/23 04:04 Calculated Osmolality 277 mOsm/kg (285-295) L 04/08/23 04:04 Calcium 9.5 mg/dL (8.5-10.5) 04/08/23 04:04 Magnesium 2.2 mg/dL (1.7-2.3) 04/05/23 03:38 Total Bilirubin 0.5 mg/dL (0.15-1.2) 04/08/23 04:04 AST 10 U/L (0-40) 04/08/23 04:04 ALT < 5 U/L (0-41) 04/08/23 04:04 Alkaline Phosphatase 114 U/L (40-130) 04/08/23 04:04 Total Protein 5.8 g/dL (6.6-8.7) L 04/08/23 04:04 Albumin 2.6 g/dL (3.5-5.2) L 04/08/23 04:04 Globulin 3.2 g/dL (1.3-4.6) 04/08/23 04:04 Urine Color Dark yellow (Yellow) 04/04/23 22:17 Urine Appearance Clear (CLEAR) 04/04/23 22:17 Urine pH 5 (5-7) 04/04/23 22:17 Ur Specific [place] 1.015 (1.005-1.030) 04/04/23 22:17 Urine Protein 1+ (Negative) H 04/04/23 22:17 Urine Glucose (UA) Norm (Normal) 04/04/23 22:17 Urine Ketones 1+ (Negative) H 04/04/23 22:17 Urine Blood Neg (Negative) 04/04/23 22:17 Urine Nitrate Negative (Negative) 04/04/23 22:17 Urine Bilirubin 2+ (Negative) H 04/04/23 22:17 Urine Urobilinogen 8 mg/dL (Negative) H 04/04/23 22:17 Ur Leukocyte Esterase Negative (Negative) 04/04/23 22:17 Urine RBC None /hpf (0-2) 04/04/23 22:17 Urine WBC 0-4 /hpf (0-5) H 04/04/23 22:17 Ur Squamous Epith Cells 0-4 /hpf (0-5) H 04/04/23 22:17 Amorphous Sediment Not Reportable 04/04/23 22:17 Urine Bacteria Trace /hpf (NONE) 04/04/23 22:17 Urine Mucus Trace /hpf 04/04/23 22:17 Fluid Color Yellow 04/04/23 18:56 Fluid Appearance Clear 04/04/23 18:56 Fluid Specific Grav 1.010 04/04/23 18:56 Fluid pH 8.0 04/04/23 18:56 Fluid WBC 290 /uL 04/04/23 18:56 Fluid RBC 2.000 10^3/uL 04/04/23 18:56 Fld Polynuclear WBCs # 0.109 04/04/23 18:56 Fld Polynuclear WBCs % 37.600 % 04/04/23 18:56 Fl Mononucl WBCs #(Auto) 0.181 04/04/23 18:56 Fl Mononuclear % Auto 62.400 % 04/04/23 18:56 Fld Crystal Laterality Left pleural 04/04/23 18:56 Fluid Glucose 4.0 mg/dL 04/04/23 18:56 Fluid Albumin 1.3 g/dL 04/04/23 18:56 Fluid LDH 913 U/L 04/04/23 18:56 Fluid Amylase 15 U/L 04/04/23 18:56 Fluid Alk Phosphatase 30 IU/L 04/04/23 18:56 Fluid Cholesterol 55 mg/dL (0-200) 04/04/23 18:56 Fluid Triglycerides 32 mg/dL (0-150) 04/04/23 18:56 Fluid Uric Acid 6 mg/dL 04/04/23 18:56 Pleural Total Protein 2.8 g/dL 04/04/23 18:56 Vitals Last Vital Signs Temp 98 F 04/09/23 11:49 Pulse 95 04/09/23 11:49 Resp 18 04/09/23 11:49 BP 107/75 04/09/23 11:49 Pulse Ox 90 04/09/23 11:49 O2 Del Method High Flow Nasal Cannula 04/09/23 11:49 O2 Flow Rate 10 04/09/23 11:46 FiO2 100 04/09/23 08:50 Discharge Plan Discharge Patient Disposition: Hospice - Home Condition: Stable Prescriptions: Continued sennosides-docusate sodium [Senna-S] 8.6-50 mg tablet 1 tab-cap PO DAILY citalopram 20 mg tablet 20 mg PO DAILY PRN (Reason: mood) Qty: 90 0RF dronabinol 10 mg capsule 10 mg PO QID Qty: 120 2RF prochlorperazine maleate [Compazine] 10 mg tablet 10 mg PO Q4H PRN (Reason: Nausea) Qty: 30 3RF alprazolam 1 mg tablet 1 mg PO TID PRN (Reason: anxiety) Qty: 90 0RF ondansetron 4 mg tablet,disintegrating 4 mg translingual Q4H PRN (Reason: nausea) Qty: 5 0RF Rx Instructions: Dissolve 1 tablet under tongue every 4 hours PRN for nausea bisacodyl 10 mg suppository 10 mg TN DAILY PRN (Reason: constipation) Qty: 5 0RF Rx Instructions: 1 suppository per rectum every day PRN for constipation. lorazepam 2 mg/mL concentrate 2 mg sublingual Q4H PRN (Reason: Anxiety/Seizure) Qty: 30 0RF Rx Instructions: 0.25ml-1ml q4H PRN Anxiety/Seizure Start 0.25ml may increase to 0.5ml-1ml q4H morphine concentrate 100 mg/5 mL (20 mg/mL) solution 20 mg sublingual DIRECTED PRN (Reason: Pain/SOB) 14 Days Qty: 30 0RF Rx Instructions: 0.25ml-1ml q1H PRN may increase to 0.5ml-1ml Q1H PRN atropine 1 % drops 4 drp sublingual Q4H PRN (Reason: secretions) Qty: 5 0RF Rx Instructions: 4 drops SL q 4 hours PRN for terminal congestion/excessive secretions. ondansetron 4 mg tablet,disintegrating 4 - 8 mg PO Q8H PRN (Reason: nausea and vomiting) esomeprazole magnesium [Nexium] 20 mg Capsule,Delayed Release(Dr/Ec) 20 mg PO DAILY Discontinued bevacizumab-awwb 25 mg/mL solution 730 mg IV Q21D Qty: 32 4RF Rx Instructions: ON HOLD capecitabine 500 mg tablet See Rx Instructions .ROUTE .COMPLEX Hold Instructions: Doctor's Order Rx Instructions: Medication STILL ON HOLD 04/05/23 per Xeloda -1,000mg (2 tabs) po bid- Take for 14 days per 21-day cycle; must administer with water 30 minutes after a mealTake first dose evening of day 1 and last dose morning of day 15 ibuprofen [Advil] 200 mg Tablet 400 mg PO Q6H PRN (Reason: Pain) dexamethasone sodium phosphate [Decadron Phosphate] 4 mg/mL Syringe See Rx Instructions .ROUTE .COMPLEX Rx Instructions: GIVEN WITH MVASI BY DR MATT STAUFFER AT [facility] [phone] Mvasi 25 mg/mL Solution See Rx Instructions .ROUTE .COMPLEX Rx Instructions: GAVE WITH 12 MG DECAD[address] IM PER DR. MATT STAUFFER AT [facility] [phone] Discharge Orders: Discharge Order (Routine); Ordered 04/09/23 Ordered By: Poppy Alston Referrals: [facility] ([facility]) [Outside] Mason Adams MD [Primary Care Provider] - Discharge Diet: Usual diet Discharge Activity: Resume usual activity Patient Instructions: Hospice Care, Opioid Safety, Pain Management Discharge Attestations Time Spent in Discharge Care*: greater than 30 min Quality Metrics Clinical Quality Measures [ Venous Thromboembolism { Contraindication to Overlap Therapy: Drug therapy discontinued (hospice care ); VTE Discharge Education: Other (hospice care ); Deep Vein Thrombosis/Pulmonary Embolism Present on Admission: Yes;}] Coding Level of Care Code Acute Code for Chg Fwd Diagnoses Pulmonary embolism I26.99 Pleural effusion J90 Malignant neoplasm of sigmoid colon C18.7
[2023-04-09 14:17] VITALS: BP 107/75; PULSE 95; RESP 18; TEMP 36.6; O2SAT 90
== END 2023-04-09 13:55 | disposition hospice, home (50) | DRG 176 ==
LOC: ER 18:15 → CSU 04-05 06:00 → MEDSURG 04-08 14:25
PROVIDERS: Internal Medicine; Internal Medicine Pulmonary Disease; Admitting Provider Internal Medicine; Emergency Provider Family Medicine; PCP Family Medicine; Visit Provider Student in an Organized Health Care Education/Training Program
DX: I26.92 Saddle embolus of pulmonary artery without acute cor pulmonale (principal); I82.412 Acute embolism and thrombosis of left femoral vein; C18.7 Malignant neoplasm of sigmoid colon; C77.8 Secondary and unspecified malignant neoplasm of lymph nodes of multiple regions; C78.6 Secondary malignant neoplasm of retroperitoneum and peritoneum; J91.0 Malignant pleural effusion; J95.811 Postprocedural pneumothorax; Z79.891 Long term (current) use of opiate analgesic; Z90.49 Acquired absence of other specified parts of digestive tract; Z95.828 Presence of other vascular implants and grafts; Z87.891 Personal history of nicotine dependence; Z92.21 Personal history of antineoplastic chemotherapy
CPT/HCPCS: 36415; 71045; 71250; 80053; 80503; 81001; 81015; 82042; 82150; 82465; 82945; 83615; 83735; 83986; 84075; 84157; 84315; 84478; 84560; 85025; 85610; 85730; 87070; 87075; 87102; 87205; 87206; 88112; 88305; 89050; 93005; 93306; 93970; 96365; 99285; C9113; J1644; J2270; J2543; Q0167

== ENCOUNTER 2023-04-05 09:00 | Oncology outpatient (recurring) (ONCR) | payer BC, SELFPAY ==
[2023-03-18 08:02] VITALS: BP 122/92; PULSE 120; RESP 18; TEMP 36.4; O2SAT 93
[2023-03-18 08:16] LABS: Basophils # 0.1 10^3/uL (0.0-0.1); Basophils % 0.6 %; Eosinophils # 0.1 10^3/uL (0.0-0.8); Eosinophils % 0.7 %; Hematocrit 42.3 % (42.0-52.0); Lymphocytes % 11.6 %; Mean Corpuscular HGB Conc 33.1 g/dL (30.0-36.0); Mean Corpuscular Volume 87.8 fl (80-94); Mean Platelet Volume 8.9 fL (7.4-10.4); Monocytes # 1.3 10^3/uL (0.2-0.9); Monocytes % 15.5 %; Neutrophils # 6.02 10^3/uL (1.8-7.7); Neutrophils % 71.2 %; Nucleated Red Blood Cells % 0 %; Platelet Count 702 10^3/cmm (130-400); Red Blood Count 4.82 10^6/uL (4.1-5.3); Red Cell Distribution Width 16.9 % (12.1-15.1); White Blood Count 8.5 10^3/uL (4.0-10.0)
[2023-03-18 08:36] LABS: Carcinoembryonic Antigen 92.5 ng/mL (0.0-4.7)
[2023-03-18 08:47] LABS: Alanine Aminotransferase < 5 U/L (0-41); Albumin Level 2.6 g/dL (3.5-5.2); Alkaline Phosphatase 108 U/L (40-130); Anion Gap 17.9 (5-19); Aspartate Amino Transferase 15 U/L (0-40); Blood Urea Nitrogen 9 mg/dL (8-23); Calcium 8.6 mg/dL (8.5-10.5); Carbon Dioxide 25 mmol/L (22-29); Chloride 94 mmol/L (98-107); Glomerular Filtration Rate 216.6 mL/min (90-130); Glucose 119 mg/dL (65-115); Osmolality Calculated 276 mOsm/kg (285-295); Potassium 3.9 mmol/L (3.5-5.1); Sodium 133 mmol/L (136-145); Total Bilirubin 0.5 mg/dL (0.15-1.2); Total Protein 6.6 g/dL (6.6-8.7)
[2023-03-20 15:26] VITALS: BP 115/80; PULSE 105; RESP 16; TEMP 36.6; O2SAT 94
[2023-03-20] MEDS: sodium chloride 0.9% 250 ML 75 ML IV (16:12)
[2023-03-20 17:26] VITALS: BP 109/78; PULSE 89; RESP 17; TEMP 36.4; O2SAT 93
[2023-03-26] MEDS: sodium chloride 0.9% 500 ML 999 ML IV (09:37)
[2023-03-26 09:38] VITALS: BP 117/91; PULSE 108; RESP 18; TEMP 36.4; O2SAT 92
[2023-03-26 10:10] VITALS: BP 110/68; PULSE 100; RESP 18; TEMP 36.6; O2SAT 98
--- NOTE | 2023-03-26 11:56 | PC.NURSE ---
Patient came in for the hydration since he is having trouble with the abdomen distended and is scheduled for a procedure for this later today.stanley
== END 2023-04-15 23:59 | disposition home or self-care (01) ==
PROVIDERS: PCP Family Medicine; Visit Provider Internal Medicine Medical Oncology
DX: Z53.9 Procedure and treatment not carried out, unspecified reason (principal)
CPT/HCPCS: 49083; 80053; 82378; 85025; 96360; 96361; 96367; 96413; J1100; J1642; J7040; J7050; Q5107